=== PATIENT | male | born 1935 | race Caucasian/White ===

== ENCOUNTER 2016-08-05 19:29 | Inpatient (IN) | payer MEDICARE, OTHER ==
[~2016-08-05] VITALS: Ht 172.7 cm; Wt 96.4 kg
--- OUTSIDE RECORDS SUMMARY | 2016-08-05 19:34 | XMS REPORT | Continuity of Care Document ---
Author Author [facility] Organization [facility] Address Unknown Phone Unavailable Allergies Active Description Code Type Severity Reaction Onset Reported/Identified Relationship to Patient Clinical Status Yes No Known Allergies NKMA N/A N/A 09/21/2013 Medications Problems Procedures Results Encounters ACCT No. Visit Date/Time Discharge Status Pt. Type Provider Facility Loc./Unit Complaint [id number] 06/25/2013 14:34:00 06/25/2013 23 :59:59 CLS Outpatient
--- OUTSIDE RECORDS SUMMARY | 2016-08-05 19:34 | XMS REPORT | Referral Summary ---
Author Organization Unknown Address Unknown Phone Unavailable Care Team Providers Care Matchbook Maker Name Role Phone Sofi Long Primary Care Physician [phone] Encounter VC Date(s): 06/11/14 - 06/11/14 [facility], [address] [place] [id number] Discharge Diagnosis: Benign essential hypertension Discharge Diagnosis: Hyperlipidemia, mixed Discharge Diagnosis: Diabetes mellitus type II. Discharge Diagnosis: Coronary arteriosclerosis Discharge Disposition: Home or Self Care Attending Physician: Anshul Long MD Admitting Physician: Anshul Long MD Vital Signs Most recent to 1 oldest [Reference Range]: Temperature Tympanic 36.2 degC [36.6-38.1 degC] *LOW* (06/11/14 1:37 PM) Peripheral Pulse 88 bpm Rate [60-100 bpm] (06/11/14 1:37 PM) Respiratory Rate 18 br/min [14-20 br/min] (06/11/14 1:37 PM) Blood Pressure 130/66 mmHg [90-140/60-90 mmHg] (06/11/14 1:37 PM) Problem List Condition Effective Dates Status Health Status Informant Benign essential Active hypertension (disorder)(Confirmed ) Coronary Active arteriosclerosis (disorder)(Confirmed ) Coronary Active atherosclerosis(Conf irmed) Diabetes(Confirmed) Active Hearing loss Active (disorder)(Confirmed ) Hearing Active loss(Confirmed) Hyperlipidemia, Active mixed(Confirmed) Hypertension (Benign Active Essential)(Confirmed ) Mixed hyperlipidemia Active (disorder)(Confirmed ) Allergies, Adverse Reactions, Alerts No Known Allergies Medications alcohol swab Use four times daily prior to checking BS, 0 Refill(s) Special Instructions: Use four times daily prior to checking BS Start Date: 09/21/13 Status: Ordered Aspirin Enteric Coated 81 mg oral delayed release tablet 1 tabs, Oral, Daily, # 90 tabs, 3 Refill(s) Start Date: 11/05/13 Status: Ordered atenolol 25 mg oral tablet 1 tabs, Oral, Daily, # 90 tabs, 3 Refill(s) Start Date: 11/05/13 Status: Ordered Glucometer (DME) DME Item PRECISION XTRA: Test daily fasting and 2 hrs after meals., See Instructions, # 1 Each, 0 Refill(s), Supply Special Instructions: PRECISION XTRA: Test daily fasting and 2 hrs after meals. Start Date: 09/21/13 Status: Ordered Glucometer Lancets (DME) DME Item Test fasting and 2 hrs after eating, See Instructions, # 1 Each, 0 Refill(s), Supply Special Instructions: Test fasting and 2 hrs after eating Start Date: 09/21/13 Status: Ordered Insulin Syringe (DME) DME Item 29 gauge 0.5 ml syringe U100 use with novolog and lantus 4 times daily. DX 250.00, See Instructions, # 400 syringes, 3 Refill(s), Supply Special Instructions: 29 gauge 0.5 ml syringe U100 use with novolog and lantus 4 times daily. DX 250.00 Start Date: 11/05/13 Status: Ordered Lantus 100 units/mL subcutaneous solution 30 units, SubCutaneous, Bedtime (once a day), dx 250.00, # 30 mL, 3 Refill(s) Special Instructions: dx 250.00 Start Date: 11/05/13 Status: Ordered Lipitor 40 mg oral tablet 1 tabs, Oral, Bedtime (once a day), # 90 tabs, 3 Refill(s) Start Date: 11/05/13 Status: Ordered lisinopril 40 mg oral tablet 1 tabs, Oral, Daily, # 90 tabs, 3 Refill(s) Start Date: 11/05/13 Status: Ordered Nitrostat 0.4 mg sublingual tablet 1 tabs, SubLingual, q5min, as needed for chest pain, # 25 tabs, 3 Refill(s) Start Date: 11/05/13 Status: Ordered NovoLOG 100 units/mL subcutaneous solution 10 units, SubCutaneous, TIDAC, dx 250.00, # 40 mL, 3 Refill(s) Special Instructions: dx 250.00 Start Date: 11/05/13 Status: Ordered Rubbing Alcohol Wipes 70% topical pad See Instructions, use with insulin and testing glucose dx 250.00, # 4 boxes, 3 Refill(s) Special Instructions: use with insulin and testing glucose dx 250.00 Start Date: 11/10/13 Status: Ordered Vitamin D3 Daily, 0 Refill(s) Start Date: 02/05/14 Status: Ordered Results No data available for this section Immunizations No data available for this section Procedures Procedure Date Related Diagnosis Body Site Diabetic foot examination 03/18/13 Hearing aid 05/2011 Social History Social History Type Response Smoking Status Never smoker Assessment and Plan Extracted from: Title: Ambulatory Patient Education Author: Anshul Long MD Date: Family Medicine Cholesterol Cholesterol is a white, waxy, fat-like protein needed by your body in small amounts. The liver makes all the cholesterol you need. It is carried from the liver by the blood through the blood vessels. Deposits (plaque ) may build up on blood vessel mckenzie. This makes the arteries narrower and stiffer. Plaque increases the risk for heart attack and stroke. You cannot feel your cholesterol level even if it is very high. The only way to know is by a blood test to check your lipid (fats) levels. Once you know your cholesterol levels, you should keep a record of the test results. Work with your caregiver to to keep your levels in the desired range. WHAT THE RESULTS MEAN: Total cholesterol is a rough measure of all the cholesterol in your blood. LDL is the so-called bad cholesterol. This is the type that deposits cholesterol in the mckenzie of the arteries. You want this level to be low. HDL is the good cholesterol because it cleans the arteries and carries the LDL away. You want this level to be high. Triglycerides are fat that the body can either burn for energy or store. High levels are closely linked to heart disease. DESIRED LEVELS: Total cholesterol below 200. LDL below 100 for people at risk, below 70 for very high risk. HDL above 50 is good, above 60 is best. Triglycerides below 150. HOW TO LOWER YOUR CHOLESTEROL: Diet. Choose fish or white meat chicken and turkey, roasted or baked. Limit fatty cuts of red meat, fried foods, and processed meats, such as sausage and lunch meat. Eat lots of fresh fruits and vegetables. Choose whole grains, beans, pasta , potatoes and cereals. Use only small amounts of olive, corn or canola oils. Avoid butter, mayonnaise, shortening or palm kernel oils. Avoid foods with trans-fats. Use skim/nonfat milk and low-fat/nonfat yogurt and cheeses. Avoid whole milk, cream, ice cream, egg yolks and cheeses. Healthy desserts include greta food cake, rubi snaps, animal crackers, hard candy, popsicles, and low-fat/ nonfat frozen yogurt. Avoid pastries, cakes, pies and cookies. Exercise. A regular program helps decrease LDL and raises HDL. Helps with weight control. Do things that increase your activity level like gardening, walking, or taking the stairs. Medication. May be prescribed by your caregiver to help lowering cholesterol and the risk for heart disease. You may need medicine even if your levels are normal if you have several risk factors. HOME CARE INSTRUCTIONS Follow your diet and exercise programs as suggested by your caregiver. Take medications as directed. Have blood work done when your caregiver feels it is necessary. MAKE SURE YOU: Understand these instructions. Will watch your condition. Will get help right away if you are not doing well or get worse. Document Released: 12/11/2001 Document Revised: 06/09/2012 Document Reviewed: [facility] Patient Information 2014 [employer]. No follow up information was provided. Extracted from: Title: Office Visit Note Author: Anshul Long MD Date: 06/11/14 Assessment/Plan Benign essential hypertension Blood pressures are controlled. Medications reviewed no changes are recommended. Continue current treatment plan. Recent laboratory studies and report card reviewed and provided. Follow-up in 3 months. Ordered: Office Visit Level 4 Est 92615 Coronary arteriosclerosis Overall appears stable stress test last November as mentioned. Continue current treatment. Three-month follow-up. Ordered: Office Visit Level 4 Est 62218 Diabetes mellitus type II. A1c is down to 7.9. I encouraged him to continue to work on his diet and take his insulin appropriately. Follow-up in 3 months Ordered: Office Visit Level 4 Est 96395 Hyperlipidemia, mixed Recent laboratory studies reviewed overall lipid status is relatively stable. Continue Lipitor at its current dosage. Follow- up in 3 months. Ordered: Office Visit Level 4 Est 69304
--- OUTSIDE RECORDS SUMMARY | 2016-08-05 19:34 | XMS REPORT | Referral Summary ---
Author Author [facility] Organization [facility] Address Unknown Phone Unavailable Care Team Providers Care Salvage Winder Name Role Phone Sofi Long Primary Care Physician [phone] Encounter Date(s): 08/22/15 - 08/22/15 [facility] [place] [address] [place] [id number] Discharge Diagnosis: Benign essential hypertension Discharge Diagnosis: Mixed hyperlipidemia (disorder) Discharge Diagnosis: Generalized OA Discharge Diagnosis: Coronary arteriosclerosis Discharge Diagnosis: Diabetes mellitus type II. Discharge Disposition: 01-Home or Self Care Attending Physician: Anshul Long MD Admitting Physician: Anshul Long MD Vital Signs Most recent to 1 oldest [Reference Range]: Temperature Tympanic 36.6 degC [36.6-38.1 degC] (08/22/15 10:48 AM) Peripheral Pulse 64 bpm Rate [60-100 bpm] (08/22/15 10:48 AM) Respiratory Rate 16 br/min [14-20 br/min] (08/22/15 10:48 AM) Blood Pressure 128/60 mmHg [90-140/60-90 mmHg] (08/22/15 10:48 AM) Problem List Condition Effective Dates Status Health Status Informant Benign essential Active hypertension (disorder)(Confirmed ) Coronary Active arteriosclerosis (disorder)(Confirmed ) Coronary Active atherosclerosis(Conf irmed) Diabetes(Confirmed) Active Hearing loss Active (disorder)(Confirmed ) Hearing Active loss(Confirmed) Hyperlipidemia, Active mixed(Confirmed) Hypertension (Benign Active Essential)(Confirmed ) Mixed hyperlipidemia Active (disorder)(Confirmed ) Obesity(Confirmed) Active patient Allergies, Adverse Reactions, Alerts No Known Allergies Medications alcohol swab Use four times daily prior to checking BS, 0 Refill(s) Start Date: 09/21/13 Status: Ordered Aspirin Enteric Coated 81 mg oral delayed release tablet 81 mg 1 tabs, Oral, Daily, # 90 tabs, 4 Refill(s) Start Date: 09/29/14 Status: Ordered atenolol 25 mg oral tablet 25 mg 1 tabs, Oral, Daily, # 90 tabs, 4 Refill(s) Start Date: 09/29/14 Status: Ordered Centrum Silver Daily, 0 Refill(s) Start Date: 05/10/15 Status: Ordered folic acid Daily, 0 Refill(s) Start Date: 05/10/15 Status: Ordered Glucometer (DME) DME Item PRECISION XTRA TEST STRIPS: Test daily fasting and 2 hrs after meals. Dx 250.01, See Instructions, # 400 Each, 4 Refill(s), Supply Start Date: 09/29/14 Status: Ordered Glucometer Lancets (DME) DME Item Test fasting and 2 hrs after eating dx 250.01, See Instructions, # 100 Each, 3 Refill(s), Supply Start Date: 09/29/14 Status: Ordered Insulin Syringe (DME) DME Item 29 gauge 0.5 ml syringe U100 use with novolog and lantus 4 times daily. DX 250.01, See Instructions, # 400 syringes, 3 Refill(s), Supply Start Date: 09/29/14 Status: Ordered Lantus 100 units/mL subcutaneous solution 30 units, SubCutaneous, Bedtime (once a day), dx 250.00, # 30 mL, 5 Refill(s) Start Date: 09/29/14 Status: Ordered Lipitor 40 mg oral tablet 40 mg 1 tabs, Oral, Bedtime (once a day), # 90 tabs, 4 Refill(s) Start Date: 09/29/14 Status: Ordered lisinopril 40 mg oral tablet 40 mg 1 tabs, Oral, Daily, # 90 tabs, 4 Refill(s) Start Date: 09/29/14 Status: Ordered Nitrostat 0.4 mg sublingual tablet 0.4 mg 1 tabs, SubLingual, q5min, as needed for chest pain, # 25 tabs, 3 Refill( s) Start Date: 09/29/14 Status: Ordered NovoLOG 100 units/mL subcutaneous solution 10 units, SubCutaneous, TIDAC, dx 250.00, # 40 mL, 5 Refill(s) Start Date: 09/29/14 Status: Ordered Rubbing Alcohol Wipes 70% topical pad See Instructions, use with insulin and testing glucose dx 250.00, # 4 boxes, 3 Refill(s) Start Date: 09/29/14 Status: Ordered traZODone 50 mg oral tablet 50 mg 1 tabs, Oral, Bedtime (once a day), as needed for insomnia, # 30 tabs, 0 Refill(s) Start Date: 08/22/15 Status: Ordered Vitamin B1 250 mg oral tablet 250 mg 1 tabs, Oral, Daily, # 100 tabs, 0 Refill(s) Start Date: 05/10/15 Status: Ordered Vitamin B12 500 mcg oral tablet 500 mcg 1 tabs, Oral, Daily, # 90 tabs, 0 Refill(s) Start Date: 05/10/15 Status: Ordered Vitamin B6 Daily, 0 Refill(s) Start Date: 05/10/15 Status: Ordered Vitamin C 500 mg oral tablet 500 mg 1 tabs, Oral, Daily, # 90 tabs, 0 Refill(s) Start Date: 05/10/15 Status: Ordered Vitamin D3 Daily, 0 Refill(s) Start Date: 02/05/14 Status: Ordered vitamin E 200 intl units oral capsule 200 Intl_Units 1 caps, Oral, Daily, # 100 caps, 0 Refill(s) Start Date: 05/10/15 Status: Ordered Results No data available for this section Immunizations No data available for this section Procedures Procedure Date Related Diagnosis Body Site Diabetic foot examination 03/18/13 Hearing aid 05/2011 Social History Social History Type Response Smoking Status Never smoker Assessment and Plan Extracted from: Title: Ambulatory Patient Education Author: Anshul Long MD Date: Family Medicine Blood Glucose Monitoring Monitoring your blood glucose (also know as blood sugar) helps you to manage your diabetes. It also helps you and your health care provider monitor your diabetes and determine how well your treatment plan is working. WHY SHOULD YOU MONITOR YOUR BLOOD GLUCOSE? It can help you understand how food, exercise, and medicine affect your blood glucose. It allows you to know what your blood glucose is at any given moment. You can quickly tell if you are having low blood glucose (hypoglycemia) or high blood glucose (hyperglycemia). It can help you and your health care provider know how to adjust your medicines. It can help you understand how to manage an illness or adjust medicine for exercise. WHEN SHOULD YOU TEST? Your health care provider will help you decide how often you should check your blood glucose. This may depend on the type of diabetes you have, your diabetes control, or the types of medicines you are taking. Be sure to write down all of your blood glucose readings so that this information can be reviewed with your health care provider. See below for examples of testing times that your health care provider may suggest. Type 1 Diabetes Test at least 2 times per day if your diabetes is well controlled, if you are using an insulin pump, or if you perform multiple daily injections. If your diabetes is not well controlled or if you are sick, you may need to test more often. It is a good idea to also test: Before every insulin injection. Before and after exercise. Between meals and 2 hours after a meal. Occasionally between 2:00 a.m. and 3:00 a.m. Type 2 Diabetes If you are taking insulin, test at least 2 times per day. However, it is best to test before every insulin injection. If you take medicines by mouth (orally), test 2 times a day. If you are on a controlled diet, test once a day. If your diabetes is not well controlled or if you are sick, you may need to monitor more often. HOW TO MONITOR YOUR BLOOD GLUCOSE Supplies Needed Blood glucose meter. Test strips for your meter. Each meter has its own strips. You must use the strips that go with your own meter. A pricking needle (lancet). A device that holds the lancet (lancing device). A journal or log book to write down your results. Procedure Wash your hands with soap and water. Alcohol is not preferred. Prick the side of your finger (not the tip) with the lancet. Gently milk the finger until a small drop of blood appears. Follow the instructions that come with your meter for inserting the test strip, applying blood to the strip, and using your blood glucose meter. Other Areas to Get Blood for Testing Some meters allow you to use other areas of your body (other than your finger) to test your blood. These areas are called alternative sites. The most common alternative sites are: The forearm. The thigh. The back area of the lower leg. The palm of the hand. The blood flow in these areas is slower. Therefore, the blood glucose values you get may be delayed, and the numbers are different from what you would get from your fingers. Do not use alternative sites if you think you are having hypoglycemia. Your reading will not be accurate. Always use a finger if you are having hypoglycemia. Also, if you cannot feel your lows (hypoglycemia unawareness), always use your fingers for your blood glucose checks. ADDITIONAL TIPS FOR GLUCOSE MONITORING Do not reuse lancets. Always carry your supplies with you. All blood glucose meters have a 24-hour "hotline" number to call if you have questions or need help. Adjust (calibrate) your blood glucose meter with a control solution after finishing a few boxes of strips. BLOOD GLUCOSE RECORD KEEPING It is a good idea to keep a daily record or log of your blood glucose readings. Most glucose meters, if not all, keep your glucose records stored in the meter. Some meters come with the ability to download your records to your home computer. Keeping a record of your blood glucose readings is especially helpful if you are wanting to look for patterns. Make notes to go along with the blood glucose readings because you might forget what happened at that exact time. Keeping good records helps you and your health care provider to work together to achieve good diabetes management. This information is not intended to replace advice given to you by your health care provider. Make sure you discuss any questions you have with your health care provider. Document Released: 03/20/2004 Document Revised: 01/04/2015 Document Reviewed: [employer] Patient Information 2015 [employer]. No follow up information was provided. Extracted from: Title: Office Visit Note Author: Anshul Long MD Date: 08/22/15 Assessment/Plan 1.Benign essential hypertension Blood pressure appears to be adequately controlled. Medications and treatments reviewed no changes are recommended at this time. Recent laboratory studies reviewed. Report card reviewed and provided. Follow-up in 3 months. Ordered: Office Visit Level 4 Est 38556 2.Coronary arteriosclerosis Chronic and stable with no signs of angina. No change in current treatment is recommended. Ordered: Office Visit Level 4 Est 41667 3.Mixed hyperlipidemia (disorder) Recent laboratory studies reviewed no changes are recommended in current treatment plan. Follow-up in 3 months. Ordered: Office Visit Level 4 Est 55907 4.Diabetes mellitus type II. A1c shows mild improvement. Encouraged him to continue to work hard and apply the knowledge again through his education classes. Report card reviewed and provided. Follow-up in 3 months. Ordered: Office Visit Level 4 Est 13621 5.Generalized OA Chronic stable no change in current treatment recommended. Ordered: Office Visit Level 4 Est 58143
--- OUTSIDE RECORDS SUMMARY | 2016-08-05 19:34 | XMS REPORT | Referral Summary ---
Author Author [facility] Organization [facility] Address Unknown Phone Unavailable Care Team Providers Care Vegetable Washer Name Role Phone Sofi Long Primary Care Physician [phone] Encounter Date(s): 12/08/15 - 12/08/15 [facility] [address] [place] [id number]- Discharge Diagnosis: Benign essential hypertension Discharge Diagnosis: Coronary arteriosclerosis Discharge Diagnosis: Hyperlipidemia, mixed Discharge Diagnosis: Diabetes mellitus type II. Discharge Disposition: 01-Home or Self Care Attending Physician: Anshul Long MD Admitting Physician: Anshul Long MD Vital Signs Most recent to 1 oldest [Reference Range]: Temperature Tympanic 36.9 degC [36.6-38.1 degC] (12/08/15 10:45 AM) Peripheral Pulse 68 bpm Rate [60-100 bpm] (12/08/15 10:45 AM) Blood Pressure 146/68 mmHg [90-140/60-90 mmHg] *HI* (12/08/15 10:45 AM) Problem List Condition Effective Dates Status [...] # 90 tabs, 4 Refill(s) Start Date: 11/15/15 Status: Ordered atenolol 25 mg oral tablet 25 mg 1 tabs, Oral, Daily, # 90 tabs, 4 Refill(s) Start Date: 11/15/15 Status: Ordered Centrum Silver Daily, 0 Refill(s) Start Date: 05/10/15 Status: Ordered folic acid 0.4 mg, Oral, Daily, 0 Refill(s) Start Date: 05/10/15 Status: Ordered Glucometer (DME) DME Item PRECISION XTRA TEST STRIPS: Test daily fasting and 2 hrs after meals. Dx E11.65, See Instructions, # 400 Each, 4 Refill(s), Supply Start Date: 11/15/15 Status: Ordered Glucometer (DME) DME Item Meter Precision Xtra Dx E11.65, See Instructions, # 1 Each, 0 Refill(s ), Supply Start Date: 11/15/15 Status: Ordered Glucometer Lancets (DME) DME Item Test fasting and 2 hrs after eating dx E11.65, See Instructions, # 100 Each, 3 Refill(s), Supply Start Date: 11/15/15 Status: Ordered Insulin Syringe (DME) DME Item 29 gauge 0.5 ml syringe U100 use with novolog and lantus 4 times daily. DX E11.65, See Instructions, # 400 syringes, 3 Refill(s), Supply Start Date: 11/15/15 Status: Ordered Lantus 100 units/mL subcutaneous solution 30 units, SubCutaneous, Bedtime (once a day), dx E11.65, # 30 mL, 5 Refill(s) Start Date: 11/15/15 Status: Ordered Lipitor 40 mg oral tablet 40 mg 1 tabs, Oral, Bedtime (once a day), # 90 tabs, 4 Refill(s) Start Date: 11/15/15 Status: Ordered lisinopril 40 mg oral tablet 40 mg 1 tabs, Oral, Daily, # 90 tabs, 4 Refill(s) Start Date: 11/15/15 Status: Ordered Nitrostat 0.4 mg sublingual tablet 0.4 mg 1 tabs, SubLingual, q5min, as needed for chest pain, # 25 tabs, 3 Refill( s) Start Date: 11/15/15 Status: Ordered NovoLOG 100 units/mL subcutaneous solution 10 units, SubCutaneous, TIDAC, dx E11.65, # 40 mL, 5 Refill(s) Start Date: 11/15/15 Status: Ordered Rubbing Alcohol Wipes 70% topical pad See Instructions, use with insulin and testing glucose dx 250.00, # 4 boxes, 3 Refill(s) Start Date: 11/15/15 Status: Ordered traZODone 50 mg oral tablet [...] Procedures Procedure Date Related Diagnosis Body Site Hearing aid 05/2011 Diabetic foot examination Social History Social History Type Response Smoking Status Never smoker Assessment and Plan Extracted from: Title: Ambulatory Patient Education Author: nAshul Long MD Date: Home Health Care Diabetes and Exercise Exercising regularly is important. It is not just about losing weight. It has many health benefits, such as: Improving your overall fitness, flexibility, and endurance. Increasing your bone density. Helping with weight control. Decreasing your body fat. Increasing your muscle strength. Reducing stress and tension. Improving your overall health. People with diabetes who exercise gain additional benefits because exercise: Reduces appetite. Improves the body's use of blood sugar (glucose). Helps lower or control blood glucose. Decreases blood pressure. Helps control blood lipids (such as cholesterol and triglycerides). Improves the body's use of the hormone insulin by: Increasing the body's insulin sensitivity. Reducing the body's insulin needs. Decreases the risk for heart disease because exercising: Lowers cholesterol and triglycerides levels. Increases the levels of good cholesterol (such as high-density lipoproteins [HDL]) in the body. Lowers blood glucose levels. YOUR ACTIVITY PLAN Choose an activity that you enjoy, and set realistic goals. To exercise safely, you should begin practicing any new physical activity slowly, and gradually increase the intensity of the exercise over time. Your health care provider or health educator can help create an activity plan that works for you. General recommendations include: Encouraging children to engage in at least 60 minutes of physical activity each day. Stretching and performing strength training exercises, such as yoga or weight lifting, at least 2 times per week. Performing a total of at least 150 minutes of moderate-intensity exercise each week, such as brisk walking or water aerobics. Exercising at least 3 days per week, making sure you allow no more than 2 consecutive days to pass without exercising. Avoiding long periods of inactivity (90 minutes or more). When you have to spend an extended period of time sitting down, take frequent breaks to walk or stretch. RECOMMENDATIONS FOR EXERCISING WITH TYPE 1 OR TYPE 2 DIABETES Check your blood glucose before exercising. If blood glucose levels are greater than 240 mg/dL, check for urine ketones. Do not exercise if ketones are present. Avoid injecting insulin into areas of the body that are going to be exercised. For example, avoid injecting insulin into: The arms when playing tennis. The legs when jogging. Keep a record of: Food intake before and after you exercise. Expected peak times of insulin action. Blood glucose levels before and after you exercise. The type and amount of exercise you have done. Review your records with your health care provider. Your health care provider will help you to develop guidelines for adjusting food intake and insulin amounts before and after exercising. If you take insulin or oral hypoglycemic agents, watch for signs and symptoms of hypoglycemia. They include: Dizziness. Shaking. Sweating. Chills. Confusion. Drink plenty of water while you exercise to prevent dehydration or heat stroke. Body water is lost during exercise and must be replaced. Talk to your health care provider before starting an exercise program to make sure it is safe for you. Remember, almost any type of activity is better than none. This information is not intended to replace advice given to you by your health care provider. Make sure you discuss any questions you have with your health care provider. Document Released: 06/07/2004 Document Revised: 04/08/2015 Document Reviewed: ExitCare Patient Information 2016 [email or web address] [facility]. No follow up information was provided. Extracted from: Title: Office Visit Note Author: Anshul Long MD Date: 12/08/15 Assessment/Plan 1.Benign essential hypertension Blood pressures well-controlled no change in current treatment is recommended. Recent laboratory studies reviewed. Follow-up in 6 months. Ordered: Office Visit Level 4 Est 66943 2.Hyperlipidemia, mixed Chronic relatively stable recently laboratory studies reviewed no change in current treatment recommended. Report card reviewed. Follow-upin 6 months. Ordered: Office Visit Level 4 Est 36061 3.Diabetes mellitus type II. Chronic stable no change in current treatment recommended. A1c is 7.6. Continue current dose of insulinfollow- up in 6 months Ordered: Office Visit Level 4 Est 05017 4.Coronary arteriosclerosis Chronic stable no change in current treatment recommendedno signs of anginaor ischemia. Ordered: Office Visit Level 4 Est 22282
--- OUTSIDE RECORDS SUMMARY | 2016-08-05 19:34 | XMS REPORT | Referral Summary ---
Author Author [facility] Organization [facility] Address Unknown Phone Unavailable Care Team Providers Care Brush Operator Name Role Phone Sofi Long Primary Care Physician [phone] Encounter Date(s): 09/29/14 - 09/29/14 [facility] [address] [place] [id number] Discharge Diagnosis: Benign essential hypertension Discharge Diagnosis: Hyperlipidemia, mixed Discharge Diagnosis: Coronary arteriosclerosis Discharge Diagnosis: Stable angina Discharge Diagnosis: Generalized OA Discharge Disposition: 01-Home or Self Care Attending Physician: Anshul Long MD Admitting Physician: Anshul Long MD Vital Signs Most recent to 1 oldest [Reference Range]: Temperature Tympanic 36.4 degC [36.6-38.1 degC] *LOW* (09/29/14 1:28 PM) Peripheral Pulse 68 bpm Rate [60-100 bpm] (09/29/14 1:28 PM) Blood Pressure 122/66 mmHg [90-140/60-90 mmHg] (09/29/14 1:28 PM) Problem List Condition Effective Dates Status [...] 4 Refill(s) Start Date: 09/29/14 Status: Ordered Glucometer (DME) DME Item PRECISION [...] 3 Refill(s) Start Date: 09/29/14 Status: Ordered Vitamin D3 Daily, 0 Refill(s) [...] Author: Anshul Long MD Date: Family Medicine Managing Your High Blood Pressure Blood pressure is a measurement of how forceful your blood is pressing against the mckenzie of the arteries. Arteries are muscular tubes within the circulatory system. Blood pressure does not stay the same. Blood pressure rises when you are active, excited, or nervous; and it lowers during sleep and relaxation. If the numbers measuring your blood pressure stay above normal most of the time, you are at risk for health problems. High blood pressure (hypertension ) is a long-term (chronic ) condition in which blood pressure is elevated. A blood pressure reading is recorded as two numbers, such as 120 over 80 (or 120 /80). The first, higher number is called the systolic pressure. It is a measure of the pressure in your arteries as the heart beats. The second, lower number is called the diastolic pressure. It is a measure of the pressure in your arteries as the heart relaxes between beats. Keeping your blood pressure in a normal range is important to your overall health and prevention of health problems, such as heart disease and stroke. When your blood pressure is uncontrolled, your heart has to work harder than normal. High blood pressure is a very common condition in adults because blood pressure tends to rise with age. Men and women are equally likely to have hypertension but at different times in life. Before age 45, men are more likely to have hypertension. After 65 years of age, women are more likely to have it. Hypertension is especially common in Americans. This condition often has no signs or symptoms. The cause of the condition is usually not known. Your caregiver can help you come up with a plan to keep your blood pressure in a normal, healthy range. BLOOD PRESSURE STAGES Blood pressure is classified into four stages: normal, prehypertension, stage 1 , and stage 2. Your blood pressure reading will be used to determine what type of treatment, if any, is necessary. Appropriate treatment options are tied to these four stages: Normal Systolic pressure (mm Hg): below 120. Diastolic pressure (mm Hg): below 80. Prehypertension Systolic pressure (mm Hg): 120 to 139. Diastolic pressure (mm Hg): 80 to 89. Stage1 Systolic pressure (mm Hg): 140 to 159. Diastolic pressure (mm Hg): 90 to 99. Stage2 Systolic pressure (mm Hg): 160 or above. Diastolic pressure (mm Hg): 100 or above. RISKS RELATED TO HIGH BLOOD PRESSURE Managing your blood pressure is an important responsibility. Uncontrolled high blood pressure can lead to: A heart attack. A stroke. A weakened blood vessel (aneurysm ). Heart failure. Kidney damage. Eye damage. Metabolic syndrome. Memory and concentration problems. HOW TO MANAGE YOUR BLOOD PRESSURE Blood pressure can be managed effectively with lifestyle changes and medicines ( if needed). Your caregiver will help you come up with a plan to bring your blood pressure within a normal range. Your plan should include the following: Education Read all information provided by your caregivers about how to control blood pressure. Educate yourself on the latest guidelines and treatment recommendations. New research is always being done to further define the risks and treatments for high blood pressure. Lifestylechanges Control your weight. Avoid smoking. Stay physically active. Reduce the amount of salt in your diet. Reduce stress. Control any chronic conditions, such as high cholesterol or diabetes. Reduce your alcohol intake. Medicines Several medicines (antihypertensive medicines ) are available, if needed, to bring blood pressure within a normal range. Communication Review all the medicines you take with your caregiver because there may be side effects or interactions. Talk with your caregiver about your diet, exercise habits, and other lifestyle factors that may be contributing to high blood pressure. See your caregiver regularly. Your caregiver can help you create and adjust your plan for managing high blood pressure. RECOMMENDATIONS FOR TREATMENT AND FOLLOW-UP The following recommendations are based on current guidelines for managing high blood pressure in non adults. Use these recommendations to identify the proper follow-up period or treatment option based on your blood pressure reading. You can discuss these options with your caregiver. Systolic pressure of 120 to 139 or diastolic pressure of 80 to 89: Follow up with your caregiver as directed. Systolic pressure of 140 to 160 or diastolic pressure of 90 to 100: Follow up with your caregiver within 2 months. Systolic pressure above 160 or diastolic pressure above 100: Follow up with your caregiver within 1 month. Systolic pressure above 180 or diastolic pressure above 110: Consider antihypertensive therapy; follow up with your caregiver within 1 week. Systolic pressure above 200 or diastolic pressure above 120: Begin antihypertensive therapy; follow up with your caregiver within 1 week. Document Released: 12/10/2012 Document Reviewed: 12/10/2012 ExitCare Patient Information 2014 [employer]. No follow up information was provided. Extracted from: Title: Office Visit Note Author: Anshul Long MD Date: 09/29/14 Assessment/Plan Benign essential hypertension Blood pressure is adequately controlled. Medications and treatments reviewed no changes are recommended. Follow-up in 3 months. Report card and recent laboratory studies reviewed. Ordered: Office Visit Level 4 Est 59619 Coronary arteriosclerosis Chronic stable no change in current treatment. Ordered: Office Visit Level 4 Est 50066 Generalized OA Chronic stable no change in current treatment. Ordered: Office Visit Level 4 Est 02313 Hyperlipidemia, mixed Laboratory studies ordered for prior to next visit. Continue current treatment plan without change. Ordered: Office Visit Level 4 Est 60327 Stable angina Overall this continues to be stable. She starts to have more frequent or more severe chest pain he'll let us know. Ordered: Office Visit Level 4 Est 22422 Erectile dysfunction Samples of Viagra given. Discussed side effects. If he happens to have chest pain with sexual activity he should stop. Discussed that he should not use nitrates on the day he takes Viagra.
--- OUTSIDE RECORDS SUMMARY | 2016-08-05 19:34 | XMS REPORT | Referral Summary ---
Author Author [facility] Organization [facility] Address Unknown Phone Unavailable Care Team Providers Care Safety Person Name Role Phone Sofi Long Primary Care Physician [phone] Encounter Date(s): 09/29/14 - 09/29/14 [facility] [address] [place] [id number] Discharge Diagnosis: Benign essential hypertension Discharge [...] Document Reviewed: 12/10/2012 ExitCare Patient Information 2014 [employer]. No follow up information was provided. Extracted from: Title: Office Visit Note Author: Anshul Long MD Date: 09/29/14 Assessment/Plan Benign essential hypertension Blood pressure is adequately controlled. Medications and treatments reviewed no changes are recommended. Follow-up in 3 months. Report card and recent laboratory studies reviewed. Ordered: Office Visit Level 4 Est 47554 Coronary arteriosclerosis Chronic stable no change in current treatment. Ordered: Office Visit Level 4 Est 35523 Generalized OA Chronic stable no change in current treatment. Ordered: Office Visit Level 4 Est 61994 Hyperlipidemia, mixed Laboratory studies ordered for prior to next visit. Continue current treatment plan without change. Ordered: Office Visit Level 4 Est 37466 Stable angina Overall this continues to be stable. She starts to have more frequent or more severe chest pain he'll let us know. Ordered: Office Visit Level 4 Est 97057 Erectile dysfunction Samples of Viagra given. Discussed side effects. If he happens to have chest pain with sexual activity he should stop. Discussed that he should not use nitrates on the day he takes Viagra.
--- OUTSIDE RECORDS SUMMARY | 2016-08-05 19:34 | XMS REPORT | Referral Summary ---
Author Author [facility] Organization [facility] Address Unknown Phone Unavailable Care Team Providers Care Scout Professional Sports Name Role Phone Sofi Long Primary Care Physician [phone] Encounter Date(s): 09/29/14 - 09/29/14 [facility] [address] [place] [id number] Discharge Diagnosis: Benign essential hypertension Discharge [...] Document Reviewed: 12/10/2012 ExitCare Patient Information 2014 [employer]. No follow up information was provided. Extracted from: Title: Office Visit Note Author: Anshul Long MD Date: 09/29/14 Assessment/Plan Benign essential hypertension Blood pressure is adequately controlled. Medications and treatments reviewed no changes are recommended. Follow-up in 3 months. Report card and recent laboratory studies reviewed. Ordered: Office Visit Level 4 Est 74091 Coronary arteriosclerosis Chronic stable no change in current treatment. Ordered: Office Visit Level 4 Est 25199 Generalized OA Chronic stable no change in current treatment. Ordered: Office Visit Level 4 Est 91883 Hyperlipidemia, mixed Laboratory studies ordered for prior to next visit. Continue current treatment plan without change. Ordered: Office Visit Level 4 Est 29520 Stable angina Overall this continues to be stable. She starts to have more frequent or more severe chest pain he'll let us know. Ordered: Office Visit Level 4 Est 90649 Erectile dysfunction Samples of Viagra given. Discussed side effects. If he happens to have chest pain with sexual activity he should stop. Discussed that he should not use nitrates on the day he takes Viagra.
--- OUTSIDE RECORDS SUMMARY | 2016-08-05 19:34 | XMS REPORT | Referral Summary ---
Author Author [facility] Organization [facility] Address Unknown Phone Unavailable Care Team Providers Care City Surveyor Name Role Phone Sofi Long Primary Care Physician [phone] Encounter Date(s): 05/10/15 - 05/10/15 [facility] [address] [place] [id number] Discharge Diagnosis: Benign essential hypertension Discharge Diagnosis: Coronary atherosclerosis Discharge Diagnosis: Diabetes mellitus type II. Discharge Diagnosis: Hyperlipidemia, mixed Discharge Disposition: 01-Home or Self Care Attending Physician: Anshul Lnog MD Admitting Physician: Anshul Long MD Vital Signs Most recent to 1 oldest [Reference Range]: Temperature Tympanic 36.1 degC [36.6-38.1 degC] *LOW* (05/10/15 10:46 AM) Peripheral Pulse 72 bpm Rate [60-100 bpm] (05/10/15 10:46 AM) Respiratory Rate 16 br/min [14-20 br/min] (05/10/15 10:46 AM) Blood Pressure 150/70 mmHg [90-140/60-90 mmHg] *HI* (05/10/15 10:46 AM) Problem List Condition Effective Dates Status [...] Refill(s) Start Date: 09/29/14 Status: Ordered Vitamin B1 250 mg oral [...] provider may suggest. Type 1 Diabetes Test 4 times a day if you are in good control, using an insulin pump, or perform multiple daily injections. If your diabetes is not well controlled or if you are sick, you may need to monitor more often. It is a good idea to also monitor: Before and after exercise. Between meals and 2 hours after a meal. Occasionally between 2:00 a.m. and 3:00 a.m. Type 2 Diabetes It can vary with each person, but generally, if you are on insulin, test 4 times a day. If you take medicines by mouth (orally), [...] work together to achieve good diabetes management. Document Released: 03/20/2004 Document Revised: 08/02/2014 Document Reviewed: ExitCare Patient Information 2015 [employer]. This information is not intended to replace advice given to you by your health care provider. Make sure you discuss any questions you have with your health care provider. No follow up information was provided. Extracted from: Title: Office Visit Note Author: Anshul Long MD Date: 05/10/15 Assessment/Plan Benign essential hypertension Blood pressure is mildly elevated today. Seems to be running normal at home. He does notice that it goes up quite a bit if he exercises. He'll continue to monitor and let me know if it's running higher. Continue current treatment plan for now. Ordered: Office Visit Level 4 Est 15320 Coronary atherosclerosis Chronic stable no change in current treatment. If he's having more frequent or more severe episodes of angina or chest pain he' ll let us now. Ordered: Office Visit Level 4 Est 50545 Diabetes mellitus type II. We had a fairly long discussion about his diabetes and insulin usage. I'vediscussed again with him the foot and use basal insulin and encouraged himtotake regular doses of basal insulinand very the dose of his NovoLog depending on what he is eating as well as blood sugars are doing. We will see if we can schedule him for diabetic education classes at [facility] as well. Ordered: Office Visit Level 4 Est 65293 Hyperlipidemia, mixed Chronic stable no change in current treatment recommended. Ordered: Office Visit Level 4 Est 57966
--- OUTSIDE RECORDS SUMMARY | 2016-08-05 19:34 | XMS REPORT | Continuity of Care Document ---
Author Author Anshul Long MD [facility] Ambulatory Address [address] [place] [address] Phone Care Team Providers Care Cigar Brander Name Role Phone Anshul Long PP Unavailable Payers Payer name Insurance type Covered constitution party ID Authorization(s) Unknown Problems Condition Effective Dates (start - stop) Clinical Status CAD, Unspecified - *Chronic Diabetes Mellitus Type 2, Uncomplicated - *Chronic Hypertension, Benign - *Chronic Mixed Hyperlipidemia - *Chronic Unspecified hearing loss - *Chronic CAD, Unspecified - Chronic Diabetes Mellitus Type 2, Uncomplicated - Chronic Hypertension, Benign - Chronic Mixed Hyperlipidemia - Chronic Unspecified hearing loss - Chronic DMII WO CMP NT ST UNCNTR - PURE HYPERCHOLESTEROLEM - HYPERTENSION NOS - COR ATH UNSP VSL NTV/GFT - Mixed Hyperlipidemia - *Chronic Hypertension, Benign - *Chronic CAD, Unspecified - Chronic Diabetes Mellitus Type 2, Uncomplicated - Chronic Mixed Hyperlipidemia - Chronic Hypertension, Benign - Chronic CAD, Unspecified - *Chronic Diabetes Mellitus Type 2, Uncomplicated - *Chronic CAD, Unspecified - *Chronic Diabetes Mellitus Type 2, Uncomplicated - *Chronic Mixed Hyperlipidemia - *Chronic Hypertension, Benign - *Chronic CAD, Unspecified - Chronic Diabetes Mellitus Type 2, Uncomplicated - Chronic Mixed Hyperlipidemia - Chronic Hypertension, Benign - Chronic Diabetes Mellitus Type 2, Uncomplicated - *Chronic CAD, Unspecified - *Chronic Mixed Hyperlipidemia - *Chronic Hypertension, Benign - *Chronic Diabetes Mellitus Type 2, Uncomplicated - Chronic CAD, Unspecified - Chronic Mixed Hyperlipidemia - Chronic Hypertension, Benign - Chronic Diabetes Mellitus Type 2, Uncomplicated - *Chronic CAD, Unspecified - *Chronic Mixed Hyperlipidemia - *Chronic Hypertension, Benign - *Chronic Diabetes Mellitus Type 2, Uncomplicated - Chronic CAD, Unspecified - Chronic Mixed Hyperlipidemia - Chronic Hypertension, Benign - Chronic CAD, Unspecified - Chronic Diabetes Mellitus Type 2, Uncomplicated - Chronic Mixed Hyperlipidemia - Chronic Hypertension, Benign - Chronic Unspecified hearing loss - Chronic CAD, Unspecified - *Chronic Diabetes Mellitus Type 2, Uncomplicated - *Chronic Mixed Hyperlipidemia - *Chronic Hypertension, Benign - *Chronic CAD, Unspecified - Chronic Diabetes Mellitus Type 2, Uncomplicated - Chronic Mixed Hyperlipidemia - Chronic Hypertension, Benign - Chronic Family History Family Member Diagnosis Age At Onset Status Unknown Social History Social History Element Description Quantity Unknown Allergies, Adverse Reactions, Alerts Substance Reaction Severity Status Unknown Medications Medication Instructions Dosage Effective Dates (start - stop) Status Lipitor 40 mg tablet Take 1 tablet by mouth every day at bedtime. 2013 - Active Nitrostat 0.[address] 1 tabletunder the tongue every 5 minutes as needed for chest pain ( not to exceed 3 in 24 hours). 2013 - Active Lantus 100 unit/mL subcutaneous solution INJECT 30 UNITS SUBQ EVERY DAY - Active atenolol 25 mg tablet Take 1 by mouth every day. - Active lisinopril 40 mg tablet take 1 tablet (40MG) by oral route every day 40 MG - Active Novolog 100 unit/mL subcutaneous solution INJECT 10 UNITS SUBQ BEFORE EACH MEAL - Active Alcohol Prep Pads USE FOUR TIMES DAILY - Active lancets TEST FASTING AND 2 HOUR AFTER EATING - Active Enteric Coated Aspirin 81 mg tablet,delayed release Take 1 by mouth every day. - Active insulin syringe-needle U-100 1/2 mL 29 as directed - Active insulin syringe-needle U-100 1/2 mL 29 as directed - Active Precision PCX Plus Test strips TEST FASTING AND 2 HOUR AFTER EATING - Active Precision Xtra Monitor TEST DAILY FASTING OR 2 HOURS AFTER MEALS 2010 - Active Immunizations Vaccine Date Status Comments Unknown Results Test Name Date and Time Measure Units Reference Range Abnormal Flag Comments Unknown Vital Signs Date / Time: Height Weight Pulse Rate Blood Pressure Temperature /14:39:00 69.00 in 237.00 lbs 68 /min 134/68 mm[Hg] 98.5 F Procedures Procedure Date Unknown Encounters Encounter Location Date Patient Visit [facility] Patient Visit Conversion Patient Visit [facility] Patient Visit [facility] Patient Visit [facility] Patient Visit [facility] Patient Visit [facility] Patient Visit [facility] Advance Directives Directive Effective Date Unknown
--- OUTSIDE RECORDS SUMMARY | 2016-08-05 19:34 | XMS REPORT | Referral Summary ---
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 Name Role Phone Sofi Long Primary Care Physician [phone] Encounter Date(s): 01/19/15 - 01/19/15 [facility] [address] [place] [id number] Discharge Diagnosis: Benign essential hypertension Discharge Diagnosis: Hyperlipidemia, mixed Discharge Diagnosis: Diabetes Discharge Diagnosis: Coronary arteriosclerosis Discharge Disposition: 01-Home or Self Care Attending Physician: Anshul Long MD Admitting Physician: Anshul Long MD Vital Signs Most recent to 1 oldest [Reference Range]: Temperature Tympanic 36.2 degC [36.6-38.1 degC] *LOW* (01/19/15 10:30 AM) Peripheral Pulse 84 bpm Rate [60-100 bpm] (01/19/15 10:30 AM) Respiratory Rate 16 br/min [14-20 br/min] (01/19/15 10:30 AM) Blood Pressure 152/64 mmHg [90-140/60-90 mmHg] *HI* (01/19/15 10:30 AM) Problem List Condition Effective Dates Status [...] Patient Education Author: Anshul Long MD Date: 01/19/15 Family Medicine Diabetes Mellitus and Food It is important for you to manage your blood sugar (glucose) level. Your blood glucose level can be greatly affected by what you eat. Eating healthier foods in the appropriate amounts throughout the day at about the same time each day will help you control your blood glucose level. It can also help slow or prevent worsening of your diabetes mellitus. Healthy eating may even help you improve the level of your blood pressure and reach or maintain a healthy weight. HOW CAN FOOD AFFECT ME? Carbohydrates Carbohydrates affect your blood glucose level more than any other type of food. Your dietitian will help you determine how many carbohydrates to eat at each meal and teach you how to count carbohydrates. Counting carbohydrates is important to keep your blood glucose at a healthy level, especially if you are using insulin or taking certain medicines for diabetes mellitus. Alcohol Alcohol can cause sudden decreases in blood glucose (hypoglycemia), especially if you use insulin or take certain medicines for diabetes mellitus. Hypoglycemia can be a life-threatening condition. Symptoms of hypoglycemia ( sleepiness, dizziness, and disorientation) are similar to symptoms of having too much alcohol. If your health care provider has given you approval to drink alcohol, do so in moderation and use the following guidelines: Women should not have more than one drink per day, and men should not have more than two drinks per day. One drink is equal to: 12 oz of beer. 5 oz of wine. 1 oz of hard liquor. Do not drink on an empty stomach. Keep yourself hydrated. Have water, diet soda, or unsweetened iced tea. Regular soda, juice, and other mixers might contain a lot of carbohydrates and should be counted. WHAT FOODS ARE NOT RECOMMENDED? As you make food choices, it is important to remember that all foods are not the same. Some foods have fewer nutrients per serving than other foods, even though they might have the same number of calories or carbohydrates. It is difficult to get your body what it needs when you eat foods with fewer nutrients. Examples of foods that you should avoid that are high in calories and carbohydrates but low in nutrients include: Trans fats (most processed foods list trans fats on the Nutrition Facts label). Regular soda. Juice. Candy. Sweets, such as cake, pie, doughnuts, and cookies. Fried foods. WHAT FOODS CAN I EAT? Have nutrient-rich foods, which will nourish your body and keep you healthy. The food you should eat also will depend on several factors, including: The calories you need. The medicines you take. Your weight. Your blood glucose level. Your blood pressure level. Your cholesterol level. You also should eat a variety of foods, including: Protein, such as meat, poultry, fish, tofu, nuts, and seeds (lean animal proteins are best). Fruits. Vegetables. Dairy products, such as milk, cheese, and yogurt (low fat is best). Breads, grains, pasta, cereal, rice, and beans. Fats such as olive oil, trans fat-free margarine, canola oil, avocado, and olives. DOES EVERYONE WITH DIABETES MELLITUS HAVE THE SAME MEAL PLAN? Because every person with diabetes mellitus is different, there is not one meal plan that works for everyone. It is very important that you meet with a dietitian who will help you create a meal plan that is just right for you. Document Released: 12/13/2005 Document Revised: 03/23/2014 Document Reviewed: [facility] Patient Information 2015 [facility]. This information is not intended to replace advice given to you by your health care provider. Make sure you discuss any questions you have with your health care provider. No follow up information was provided. Extracted from: Title: Office Visit Note Author: Anshul Long MD Date: 01/19/15 Assessment/Plan Benign essential hypertension Blood pressure is up slightly here today but his been running normal at home. He had direction because he was late for his appointment. We'll continue current treatment plan without change. Recent laboratory studies reviewed and report card reviewed and provided. Follow-up in 3 months. Ordered: Office Visit Level 4 Est 04005 Coronary arteriosclerosis Chronic stable no signs of ischemia. Continue current treatment plan without change. Ordered: Office Visit Level 4 Est 82536 Diabetes I reviewed with him the rationale of trying to take his insulin prior to meals anticipating what his meal will be. He'll try to work on that more. For some reason we did not get an A1c with this recent laboratory studies will wait and do one in 3 months. Follow-up then. Ordered: Office Visit Level 4 Est 20005 Hyperlipidemia, mixed Recent laboratory studies reviewed no change in current treatment is recommended. Ordered: Office Visit Level 4 Est 27217
--- OUTSIDE RECORDS SUMMARY | 2016-08-05 19:35 | XMS REPORT | Referral Summary ---
Author Author [facility] Organization [facility] Address Unknown Phone Unavailable Care Team Providers Care Food Broker Name Role Phone Sofi Long Primary Care Physician [phone] Encounter Date(s): 09/29/14 - 09/29/14 [facility] [address] [place] [phone] Discharge Diagnosis: Benign essential hypertension Discharge [...] Document Reviewed: 12/10/2012 [employer] Patient Information 2014 [place]. No follow up information was provided. Extracted from: Title: Office Visit Note Author: Anshul Long MD Date: 09/29/14 Assessment/Plan Benign essential hypertension Blood pressure is adequately controlled. Medications and treatments reviewed no changes are recommended. Follow-up in 3 months. Report card and recent laboratory studies reviewed. Ordered: Office Visit Level 4 Est 34115 Coronary arteriosclerosis Chronic stable no change in current treatment. Ordered: Office Visit Level 4 Est 98610 Generalized OA Chronic stable no change in current treatment. Ordered: Office Visit Level 4 Est 66161 Hyperlipidemia, mixed Laboratory studies ordered for prior to next visit. Continue current treatment plan without change. Ordered: Office Visit Level 4 Est 26655 Stable angina Overall this continues to be stable. She starts to have more frequent or more severe chest pain he'll let us know. Ordered: Office Visit Level 4 Est 23986 Erectile dysfunction Samples of Viagra given. Discussed side effects. If he happens to have chest pain with sexual activity he should stop. Discussed that he should not use nitrates on the day he takes Viagra.
--- OUTSIDE RECORDS SUMMARY | 2016-08-05 19:35 | XMS REPORT | Referral Summary ---
Author Author [facility] Organization [facility] Address Unknown Phone Unavailable Care Team Providers Care Home Health Aid Name Role Phone Sofi Long Primary Care Physician [phone] Encounter Date(s): 01/19/15 - 01/19/15 [facility] [address] [place] [phone] Discharge Diagnosis: Benign essential hypertension Discharge [...] Released: 12/13/2005 Document Revised: 03/23/2014 Document Reviewed: [employer] Patient Information 2015 [place]. This information is not intended to replace [...] months. Ordered: Office Visit Level 4 Est 45567 Coronary arteriosclerosis Chronic stable no signs of ischemia. Continue current treatment plan without change. Ordered: Office Visit Level 4 Est 52665 Diabetes I reviewed with him the rationale of trying to take his insulin prior to meals anticipating what his meal will be. He'll try to work on that more. For some reason we did not get an A1c with this recent laboratory studies will wait and do one in 3 months. Follow-up then. Ordered: Office Visit Level 4 Est 30975 Hyperlipidemia, mixed Recent laboratory studies reviewed no change in current treatment is recommended. Ordered: Office Visit Level 4 Est 88212
--- NOTE | 2016-08-05 20:02 | NUR ---
DR DR YOUNG AT BEDSIDE.
[2016-08-05] MEDS ORDERED: NITR0.4T PO (20:06)
[2016-08-05] MEDS ORDERED: LISI40TA4 PO (20:06)
[2016-08-05] MEDS ORDERED: ASPI81TA43 PO (20:06)
[2016-08-05] MEDS ORDERED: ATEN25TA PO (20:06)
[2016-08-05] MEDS ORDERED: ATOR40TA64 PO (20:06)
[2016-08-05] MEDS ORDERED: INSU100V13 SQ (20:06)
[2016-08-05] MEDS ORDERED: TRAZ-170 PO (20:06)
[2016-08-05] MEDS ORDERED: INSU100V8 SQ (20:06)
[2016-08-05] MEDS ORDERED: CYAN50008 PO (20:10)
[2016-08-05] MEDS ORDERED: ASCO500T9 PO (20:10)
[2016-08-05] MEDS ORDERED: VITA200C5 PO (20:10)
[2016-08-05] MEDS ORDERED: THIA250T6 PO (20:10)
[2016-08-05] MEDS ORDERED: PYRI50TA PO (20:10)
[2016-08-05] MEDS ORDERED: MULT-1274 PO (20:12)
[2016-08-05] MEDS ORDERED: ERGO400C PO (20:12)
[2016-08-05] MEDS ORDERED: FOLI0.4T2 PO (20:12)
--- NOTE | 2016-08-05 20:28 | NUR ---
RADIOLOGY PT TO RADIOLOGY [facility].
--- OUTSIDE RECORDS SUMMARY | 2016-08-05 20:34 | XMS REPORT | Continuity of Care Document ---
Author Author [facility] Organization [facility] Address Unknown Phone Unavailable Allergies Active Description Code Type Severity Reaction Onset Reported/Identified Relationship to Patient Clinical Status Yes No Known Allergies NKMA N/A N/A 09/21/2013 Medications Problems Procedures Results Encounters ACCT No. Visit Date/Time Discharge Status Pt. Type Provider Facility Loc./Unit Complaint [id number] 06/25/2013 14:34:00 06/25/2013 23 :59:59 [facility] Outpatient
--- NOTE | 2016-08-05 21:05 | NUR ---
RADIOLOGY PT RETURNED.
[2016-08-05 21:28] LABS: BASOPHILS % (AUTO) 0.2 % (0-2); EOSINOPHILS # (AUTO) 0.1 T/MM3 (0-0.5); EOSINOPHILS % (AUTO) 1.1 % (0-4); HCT - HEMATOCRIT 37.4 % (41-53); HGB - HEMOGLOBIN 12.6 GM/DL (13.5-17.5); IMMATURE GRANULOCYTE # (AUTO) 0.02 T/MM3 (0.00-0.03); IMMATURE GRANULOCYTE % (AUTO) 0.2 % (0.0-0.5); LYMPHOCYTES # (AUTO) 1.3 T/MM3 (1-4.8); LYMPHOCYTES % (AUTO) 11.7 % (23-45); MEAN CORPUSCULAR HGB 29.9 UUG (26-34); MEAN CORPUSCULAR HGB CONC(MCHC 33.7 GM/DL (31-37); MEAN CORPUSCULAR VOLUME 88.6 UM3 (80-100); MEAN PLATELET VOLUME 9.8 UM3 (9.4-12.4); NEUTROPHILS #(AUTO)-ABSOLUTE 8.3 T/MM3 (1.8-7.7); NEUTROPHILS % (AUTO) 77.8 % (33-66); RED BLOOD COUNT 4.22 M/MM3 (4.50-5.90); WBC - WHITE BLOOD COUNT 10.6 T/MM3 (4.5-11.0)
[2016-08-05 21:36] LABS: ALBUMIN 4.4 G/DL (3.5-5.0); ALBUMIN/GLOBULIN RATIO 1.6 RATIO (1.1-2.2); ALKALINE PHOSPHATASE 91 U/L (38-126); ALT (SGPT) 32 U/L (21-72); ANION GAP 14 MEQ/L (5-15); AST (SGOT) 20 U/L (17-59); BUN/CREATININE RATIO 19 RATIO (6-26); CHLORIDE 99 MEQ/L (98-107); CO2 - CARBON DIOXIDE 26 MEQ/L (22-30); CREATININE 1.6 MG/DL (0.8-1.5); GLOMERULAR FILTRATION RATE 42; GLUCOSE 107 MG/DL (75-110); LIPASE 36 U/L (23-300); POTASSIUM 4.5 MEQ/L (3.6-5); SODIUM 139 MEQ/L (134-144); TOTAL PROTEIN 7.2 G/DL (6.3-8.2)
[2016-08-05 21:39] LABS: BLOOD, URINE NEGATIVE (NEGATIVE); COLOR,URINE YELLOW (YELLOW); LEUKOCYTE ESTERASE ,URINE NEGATIVE (NEGATIVE); NITRITE,URINE NEGATIVE (NEGATIVE); UROBILINOGEN,URINE 0.2 EU/DL (NORMAL)
[2016-08-05 22:10] LABS: CALCIUM 13.1 MG/DL (8.4-10.2)
--- NOTE | 2016-08-05 22:28 | NUR ---
DR DR YOUNG AT BEDSIDE.
[2016-08-05] MEDS ORDERED: NORMAL SALINE 500 ML IV ONE (22:45)
--- OUTSIDE RECORDS SUMMARY | 2016-08-05 22:54 | XMS REPORT | Continuity of Care Document ---
Author Author [facility] Organization [facility] Address Unknown Phone Unavailable Allergies Active Description Code Type Severity Reaction Onset Reported/Identified Relationship to Patient Clinical Status Yes No Known Allergies NKMA N/A N/A 09/21/2013 Medications Problems Procedures Results Encounters ACCT No. Visit Date/Time Discharge Status Pt. Type Provider Facility Loc./Unit Complaint [id number] 06/25/2013 14:34:00 06/25/2013 23 :59:59 C[facility] Outpatient
[2016-08-05] MEDS ORDERED: NORMAL SALINE 1,000 ML IV SCH ×2 (22:55→23:00)
--- NOTE | 2016-08-05 22:58 | ERPDOC ---
Departure Disposition Decision Date: August 05, 2016 Disposition Decision Time: 22:30 Disposition: 02 TO [facility] Impression Impression Impression: Primary Impression: Metastatic cancer Additional Impression: Hypercalcemia Severity: Moderate Condition: Improved Seen By: Physician only Referrals: MISHA REYEZ MD (Family) Problems/Meds/Labs Reviewed?: Yes Medications reviewed and manag: Yes Follow up care ordered?: Yes Mental Status: Alert, Occasionally Confused, Oriented Critical Care Note Total Time (mins): 37 Critical Care Spent: [id number] care of pt, Reviewing test results, Discuss the case w/staff, Documenting the MR, Discussion w/ family/DPOA During this visit the pt was: At Risk of Deterioration HPI - General Medical General Chief Complaint: Abdominal Pain Stated Complaint: METASTATIC CA Time Seen by Provider: 19:58 Source: patient, family Exam Limitations: no limitations HPI - General Medical Initial Comments 80-year-old male presents the emergency department with a chief complaint of frequent falls recently. Patient notes that he has been feeling like he has been struggling since May 2016. Patient states that he is experiencing some mild discomfort that is dull without radiation in his right shoulder. At times the patient's states that he has seems slightly more confused to her. Patient denies any other complaints or associated symptoms. He was at home when his symptoms began. Symptoms have been persisted in nature since onset. Patient does state that he feels like that he falls more easily than he has in the past. Patient does note slight increase in discomfort with movement of the right upper body. Occurred At: home Onset: Constant Allergies: Coded Allergies: No Known Allergies (Unverified , 08/06/16) Past History Past Medical History Metabolic: diabetes, hypercholesterolemia, hypertension Cardiac: CAD Surgical History Cardiac: cardiac bypass Family History Family PMH: FOUND: diabetes Social History Smoking Status: Never smoker Substance Use Type: does not use Alcohol Intake: none Review of Systems Constitutional Constitutional: DENIES: chills, fever Eyes General: DENIES: erythema, exudate Lids/Accessories: DENIES: erythema, swelling Vision: DENIES: acuity, blurring ENMT Ears: DENIES: drainage, erythema Hearing: DENIES: hearing loss Balance: DENIES: ataxia, falling to one side Sinuses: DENIES: congestion, pain Nose: DENIES: nosebleeds, pain Mouth/Throat: DENIES: painful swallowing, sore throat Teeth: DENIES: pain Jaw: DENIES: pain Cardiovascular Cardiac: DENIES: chest pain, dyspnea on exertion Rhythm/Rate: DENIES: irregular beat, palpitations Vascular: DENIES: pedal edema, unilateral swelling Pulmonary Respiratory: DENIES: cough, dyspnea, pleuritic chest pain, sputum GI Upper Abdomen: DENIES: nausea, pain, vomiting Lower Abdomen: DENIES: diarrhea, pain General: DENIES: dysuria, frequency Musculoskeletal General: DENIES: joint pain, tenderness Integumentary Skin: DENIES: itching, rash Neurological General: DENIES: change in strength, headache, numbness, weakness Psychiatric Psychiatric: DENIES: emotional instability, suicidal ideation/attempt Endocrine Endocrine: DENIES: polydipsia, polyphagia Hematologic/Lymphatic Hematologic/Lymphatic: DENIES: frequent nosebleeds, lymphadenopathy Allergic/Immunological Allergic/Immunoligical: DENIES: allergic reactions, hives Physical Exam General General Nourishment: well nourished, well developed, appears stated age, no acute distress, adult General Body Habitus: well groomed Vitals and Pain First Documented Vital Signs Date Time Temp Pulse Resp B/P Pulse Ox O2 Delivery O2 Flow Rate FiO2 08/05/16 19:29 98.0 62 20 117/63 94 Room Air Weight: Kilograms: 88.640 Height (feet): 5 Height (inches): 10.00 Triage Pain Scale: RN VS reviewed by Provider: Yes Normal Exams: Head: Normocephalic w/o trauma Eyes: Pupils are PERRLA w/ EOMI, No scleral icterus, irritation, or foreign bodies noted ENMT: No facial trauma, nasal exudates, pharyngeal erythema, or exudates are noted Dental: No fractured, loose, or missing teeth noted Neck: Full range of motion, without adenopathy, JVD, bruits or thyromegaly Chest/Resp: Clear all navarro, with good airflow, and symmetry bilaterally CV: Regular rate and rhythm, without murmur or gallop, Pulses 2+ all extremities, capillary refill, <2 seconds all ext., no pedal edema noted Abdomen: Bowel sounds positive, soft, non-tender, non-distended, no hepatosplenomegaly, masses or bruits noted Lymphatic: No lymphadenopathy, or lymphedema noted Musculoskeletal: No tenderness, or deformity noted, good range of motion, all extremities Integumentary: No rashes, hives, or bruising noted, hair and nails, without abnormality Neurologic: Patient is alert, and oriented, cranial nerves, motor/sensory/ cerebellar, exams w/o gross deficits, to observation Psychiatric: Patient exhibits, appropriate attention, emotion and affect Musculoskeletal (brief) Comments Mild tenderness to palpation over distal R clavicle without tenting of skin. skin is intact. Pulses intact. Sensation intact. Capillary refill less than 2. Full range of motion. No erythema. No edema. No other tenderness in the right upper extremity. Differential Diagnoses Considering: CVA, Medication Effect, Metabolic, TIA, UTI Progress Results/Orders Orders Procedure Category Date Status Time Cbc W/Auto LAB 08/05/16 Complete Diff-Reflex Manual Cmp - Comprehensive LAB 08/05/16 Complete Metabolic Troponin I W LAB 08/05/16 Complete Hemolysis Index EKG EKG 08/05/[address] Head W/O Contrast CT 08/05/16 Taken 20:11 Ct Cervical Spine W/O CT 08/05/16 Taken Contrast 20:11 Ua, Dip Wreflex LAB 08/05/16 Complete Microsc & Biomass Boiler Operator 20:11 Lipase LAB 08/05/16 Complete Shoulder Right 2-3 RAD 08/05/16 Taken Views 20:11 Humerus Right 2 View RAD 08/05/16 Taken 20:11 Ct Thoracic Spine W/O CT 08/05/16 Taken Contrast 20:11 Ct Lumbar Spine W/O CT 08/05/16 Taken Contrast 20:[address] 08/05/16 Taken Chest/Abdomen/Pelvis 21:35 Normal Saline (Ns) PHA 08/05/16 Complete 22:45 Lab Results Laboratory Tests Test 08/05/16 21:20 08/05/16 21:33 White Blood Count 10.6T/MM3 Red Blood Count 4.22M/MM3 Hemoglobin 12.6GM/DL Hematocrit 37.4% Mean Corpuscular Volume 88.6UM3 Mean Corpuscular Hemoglobin 29.9UUG Mean Corpuscular Hemoglobin Concent 33.7GM/DL RDW Standard Deviation 40.2FL Platelet Count 233T/MM3 Mean Platelet Volume 9.8UM3 Immature Granulocyte % (Auto) 0.2% Neutrophils (%) (Auto) 77.8% Lymphocytes (%) (Auto) 11.7% Monocytes (%) (Auto) 9.0% Eosinophils (%) (Auto) 1.1% Basophils (%) (Auto) 0.2% Absolute Immature Granulocyte (auto 0.02T/MM3 Absolute Neutrophils (auto) 8.3T/MM3 Absolute Lymphocytes (auto) 1.3T/MM3 Absolute Monocytes (auto) 1.0T/MM3 Absolute Eosinophils (auto) 0.1T/MM3 Absolute Basophils (auto) 0.0T/MM3 Turbidity < 20 Sodium Level 139MEQ/L Potassium Level 4.5MEQ/L Chloride Level 99MEQ/L Carbon Dioxide Level 26MEQ/L Anion Gap 14MEQ/L Blood Urea Nitrogen 31.0MG/DL Creatinine 1.6MG/DL Glomerular Filtration Rate Calc 42 BUN/Creatinine Ratio 19RATIO Glucose Level 107MG/DL Calculated Osmolality 275MOSM/KG Calcium Level 13.1MG/DL Total Bilirubin 1.60MG/DL Icterus Index < 2 Aspartate Amino Transf (AST/SGOT) 20U/L Alanine Aminotransferase (ALT/SGPT) 32U/L Alkaline Phosphatase 91U/L Troponin I < 0.012ng/ml Total Protein 7.2G/DL Albumin 4.4G/DL Globulin 2.8G/DL Albumin/Globulin Ratio 1.6RATIO Lipase 36U/L Thyroid Stimulating Hormone (TSH) 2.16MIU/L Chemistry Specimen Hemolysis < 15 Urine Collection Type Cleancatch-midstream Urine Color Yellow Urine Turbidity Clear Urine pH 5.5 Urine Specific [place] 1.025 Urine Protein Negative Urine Glucose (UA) Trace Urine Ketones Negative Urine Blood Negative Urine Nitrite Negative Urine Bilirubin Negative Urine Urobilinogen 0.2EU/DL Urine Leukocyte Esterase Negative Urinalysis Comment Microscopic not ind. Progress Progress Labs / imaging were discussed in detail with the patient and family and questions are answered. Patient is placed in a sling to the right upper extremity with good alignment by the RN. Patient is distal neurovascular intact post-application of sling. Patient declines offered analgesic pain medication in the emergency department. Bruce catheter is placed by RN. Patient is given 500 mL normal saline intravenously times one. Patient is discussed with Dr. Maulik Dye and will be admitted to the service of Dr. Alford in improved condition. Patient and family are in agreement with the current plan of management. No further orders from accepting physician who is in agreement with the current plan of management. These findings were discussed in detail with the patient and family who verbalized agreement and understanding. 37 minutes of Critical Care time was assessed to the patient due to a calcium level of 13.1. Patient required repeated assessments at the bedside, complex medical decision-making and had potential for decompensation. CT thoracic spine: Multiple lung parenchymal metastases. Suspect hepatic metastatic disease. 5 cm right renal lesion suspicious for neoplasm. Multiple Schmorl nodes noted in the mid and lower thoracic levels. CT lumbar spine: Osseus metastatic disease. Several Schmorl nodes are visualized. Heterogeneous right renal lesion. EKG EKG : Rate: <60 Rhythm: sinus Craig: normal QRS: normal Intervals: normal ST/T: normal Interpreted by: signing physician CT CT : CT: Head no contrast Interpretation: Abnormal (age-related changes with findings of chronic microvascular ischemic disease. No acute intracranial abnormality. CT Cervical Spine: Pleural-parenchymal nodules at the lung apices bilaterally consistent with metastatic disease. Right clavicular fracture. 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 Right renal lesion which is nonspecific but highly suspicious for neoplasm. Enlarged prostate. Cholelithiasis. Distended urinary bladder. CT CHEST: Numerous lung parenchymal metastases bilaterally. Mildly prominent mediastinal lymph nodes nonspecific. Osseous metastasis take disease with restrictive lesion of the right anterior lateral 4th rib. Right clavicular fracture. ), Faxed Report JOSE YOUNG DO August 05, 2016 22:58
[2016-08-05] MEDS ORDERED: NITROGLYCERIN 0.4 MG SUBLINGUAL TABLET SL PRN (23:00)
[2016-08-05] MEDS ORDERED: GLUCOSE ORAL GEL 40% 37.5 G TUBE PO PRN (23:00)
[2016-08-05] MEDS ORDERED: LIDOCAINE JELLY 2% 20ml UROJET MM ONE (23:00)
[2016-08-05] MEDS ORDERED: ONDANSETRON 4mg/2ml INJECTION IV PRN (23:00)
[2016-08-05] MEDS ORDERED: ACETAMINOPHEN 325 MG TABLET PO PRN (23:00)
[2016-08-05] MEDS ORDERED: HYDROMORPHONE 2mg/ml INJECTION IV PRN (23:00)
[2016-08-05] MEDS ORDERED: DEXTROSE 50% SYRINGE 50ml (Eq. 1 AMP) IV PRN (23:00)
--- NOTE | 2016-08-05 23:25 | NUR ---
OUTPUT 625ML URINE EMPTIED AT THIS TIME.
--- NOTE | 2016-08-05 23:32 | NUR ---
report report from jade huggins in [place].
--- NOTE | 2016-08-05 23:40 | NUR ---
REPORT GIVEN TO YURIDIA REDMAN.
--- NOTE | 2016-08-05 23:45 | NUR ---
OUTPUT EMPTIED 600ML URINE FROM [facility] AT THIS TIME, REPORTED ADDITIONAL OUTPUT TO YURIDIA REDMAN.
--- NOTE | 2016-08-05 23:50 | NUR ---
admit pt admitted to room 136 via w/c from e.r accompanied by staff and spouse.
--- NOTE | 2016-08-05 23:50 | NUR ---
ADMIT PT TRANSFERRED TO MEDICAL UNIT VIA BY YURIDIA JOHNS.
[2016-08-05 23:54] VITALS: PULSE 66; RESP 16; O2SAT 94
[2016-08-06] VITALS (11 sets, daily range): BP systolic 115–171; BP diastolic 54–70; PULSE 59–68; RESP 14–26; TEMP 96.9–97.1; O2SAT 91–98; Ht 172.7 cm; Wt 96.4 kg
[2016-08-06] MEDS ORDERED: POLYETHYL.GLYCOL 3350 PACKET 17gm PO PRN (00:30)
--- NOTE | 2016-08-06 00:45 | HPPDOC ---
RACHAEL PEARSON MD 08/06/16 0035: HPI - Adult Date DATE: 08/06/16 TIME: 00:30 General Chief Complaint: weakness History of Present Illness This is a 80-year-old male that has had increasing weakness for the past 2-3 weeks. The patients had 3-4 episodes of falling. Patient clearly losing his balance. The patient fell it sounds like 1 week ago. Landed on his right shoulder. Patient had persistent middle back pain and shoulder pain since then. Does not the patient presents to the emergency department because of persistent weakness and falling. Workup in the emergency department is very disturbing for what appears to be metastatic widely cancer. Patient had a CT of the head which was unremarkable. Patient had a CT of the C-spine and thoracic spine. This demonstrated evidence of metastatic disease in the lungs bilaterally, liver, and kidney. Patient also had a fractured clavicle. At this time the patients calcium was found to be elevated at 13. The patient will be admitted to the hospital for further assessment and management of probable undiagnosed metastatic carcinoma. The patients bladder sniffily distended. Bruce catheter was placed in the emergency department. Patient does have a history dyslipidemia and diabetes and cardiac disease Past Medical History Past Medical History dyslipidemia, DM2, coronary artery disease Surgical History Patient's Surgical History: CABG, T and a Current Medications Home Meds Reported Medications Cholecalciferol (Vitamin D3) (Vitamin D) 400 Unit Capsule, 400 UNIT PO DAILY 08/05/16 Multivit-Min/FA/Lycopen/Lutein (Centrum Silver Men Tablet) 1 Each Tablet, 1 TAB PO DAILY 08/05/16 Folic Acid (Folic Acid) 0.4 Mg Tablet, 0.4 MG PO DAILY 08/05/16 Vitamin E (Vitamin E) 200 Unit Capsule, 200 UNIT PO DAILY 08/05/16 Ascorbic Acid (Vitamin C) 500 Mg Tablet, 500 MG PO DAILY 08/05/16 Cyanocobalamin (Vitamin B-12) (Vitamin B12) 5,000 Mcg Tab.rapdis, 5000 MCG PO DAILY 08/05/16 Pyridoxine HCl (Pyridoxine HCl) 50 Mg Tablet, 50 MG PO DAILY 08/05/16 Thiamine HCl (Vitamin B-1) 250 Mg Tablet, 250 MG PO DAILY 08/05/16 Insulin Glargine,Hum.rec.anlog (Lantus) 100 Unit/Ml Inj, 30 UNIT SQ HS 08/05/16 Trazodone HCl (Trazodone HCl) 50 Mg Tablet, 50 MG PO HS 08/05/16 Insulin Aspart (Novolog) 100 Unit/Ml Inj, 5-10 UNIT SQ TIDWM 08/05/16 Atorvastatin Calcium (Atorvastatin Calcium) 40 Mg Tablet, 40 MG PO HS 08/05/16 Aspirin (Aspir-Low) 81 Mg Tablet.dr, 81 MG PO HS 08/05/16 Atenolol (Atenolol) 25 Mg Tablet, 25 MG PO HS 08/05/16 Nitroglycerin (Nitrostat) 0.4 Mg Tablet, 0.4 MG PO Q5MIN Y for CHEST PAIN 08/05/16 Lisinopril (Lisinopril) 40 Mg Tablet, 40 MG PO HS 08/05/16 Allergies: Coded Allergies: No Known Allergies (Unverified , 08/06/16) Family History Family History: unkown Social History Social History Comments , retired [employer], served in [employer], [employer], [employer], worked on [employer], Review of Systems Unable to Obtain Comments Patient denies headache, denies change in vision, has a dry mouth, denies any neck pain, has mid back pain, after his fall, is not short of breath, has an occasional cough, no PND no orthopnea, the patient has no chest pain, patient denies abdominal pain, is nauseated without vomiting, is constipated, patient is pain to the mid back, has pain to the right shoulder, is generally weak, has increasing episodes of falling, is not confused, a 12 point review of systems is otherwise negative except for described above Physical Exam General General Nourishment: well nourished, well developed, obese, apparent age, adult General Body Habitus: well groomed Vital Signs Vital Signs Date Time Temp Pulse Resp B/P Pulse Ox O2 Delivery O2 Flow Rate FiO2 08/06/16 00:00 96.9 68 20 171/70 94 Room Air Height (Feet): 5 Height (Inches): 8.00 Telemetry Rhythm: Sinus Rhythm Eyes Brief: FOUND: EOMI, PERRL, NOT FOUND: scleral icterus, trauma Neck Brief: FOUND: midline, NOT FOUND: JVD, nuchal rigidity, other, spasm, tenderness, tracheal deviation Respiratory Brief: FOUND: clear all navarro, equal bilaterally, NOT FOUND: other , rales, spasm, symmetrical, tenderness, wheezes Cardiovascular (brief) Cardiac Brief: FOUND: regular rate, regular rhythm, NOT FOUND: click, gallop, murmur, other, peripheral edema, rub Capillary Refill: <2 sec Abdomen (brief) Abdominal Brief: FOUND: BS normo active x4, soft, NOT FOUND: distended, other, tender Musculoskeletal (brief) Comments per nursing pain to palpation mid thoracic spine Neurologic RN Documented GCS Eye Opening: Verbal: Motor: Total: Psychiatric (brief) FOUND: alert, attentive, normal affect, oriented Laboratory Laboratory Tests Test 08/05/16 21:20 08/05/16 21:33 White Blood Count 10.6T/MM3 Red Blood Count 4.22M/MM3 Hemoglobin 12.6GM/DL Hematocrit 37.4% Mean Corpuscular Volume 88.6UM3 Mean Corpuscular Hemoglobin 29.9UUG Mean Corpuscular Hemoglobin Concent 33.7GM/DL RDW Standard Deviation 40.2FL Platelet Count 233T/MM3 Mean Platelet Volume 9.8UM3 Immature Granulocyte % (Auto) 0.2% Neutrophils (%) (Auto) 77.8% Lymphocytes (%) (Auto) 11.7% Monocytes (%) (Auto) 9.0% Eosinophils (%) (Auto) 1.1% Basophils (%) (Auto) 0.2% Absolute Immature Granulocyte (auto 0.02T/MM3 Absolute Neutrophils (auto) 8.3T/MM3 Absolute Lymphocytes (auto) 1.3T/MM3 Absolute Monocytes (auto) 1.0T/MM3 Absolute Eosinophils (auto) 0.1T/MM3 Absolute Basophils (auto) 0.0T/MM3 Turbidity < 20 Sodium Level 139MEQ/L Potassium Level 4.5MEQ/L Chloride Level 99MEQ/L Carbon Dioxide Level 26MEQ/L Anion Gap 14MEQ/L Blood Urea Nitrogen 31.0MG/DL Creatinine 1.6MG/DL Glomerular Filtration Rate Calc 42 BUN/Creatinine Ratio 19RATIO Glucose Level 107MG/DL Calculated Osmolality 275MOSM/KG Calcium Level 13.1MG/DL Total Bilirubin 1.60MG/DL Icterus Index < 2 Aspartate Amino Transf (AST/SGOT) 20U/L Alanine Aminotransferase (ALT/SGPT) 32U/L Alkaline Phosphatase 91U/L Troponin I < 0.012ng/ml Total Protein 7.2G/DL Albumin 4.4G/DL Globulin 2.8G/DL Albumin/Globulin Ratio 1.6RATIO Lipase 36U/L Thyroid Stimulating Hormone (TSH) 2.16MIU/L Chemistry Specimen Hemolysis < 15 Urine Collection Type Cleancatch-midstream Urine Color Yellow Urine Turbidity Clear Urine pH 5.5 Urine Specific Henderson 1.025 Urine Protein Negative Urine Glucose (UA) Trace Urine Ketones Negative Urine Blood Negative Urine Nitrite Negative Urine Bilirubin Negative Urine Urobilinogen 0.2EU/DL Urine Leukocyte Esterase Negative Urinalysis Comment Microscopic not ind. Radiology see CT results from ED. patient with sig metastatic ds in liver, lung, kidney, enlarged bladder, lytic lesion in all vetebral bodies. patient with fx to right clavicle Assessment & Plan Assessment 1. Hypercalcemia acute present on admission: This is definitely related to metastatic disease to bone. Tonight we will hydrate aggressively with saline. Repeat calcium in the morning. Most likely will need pamidronate. Patients mental status is intact tonight. 2. 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 This is a presumptive diagnosis. Imagings tonight would demonstrate high likelihood of cancer. Oncology consultation in the morning. Patient will most likely need formal CTs of the chest abdomen and pelvis tomorrow. The images did not reveal related to spinous CTs. Also patient will need a tissue diagnosis. Once imaging are completed. Consultation with radiology to determine if there is a readily accessible to her mass to be bx. 3. Dyslipidemia chronic present on admission: Well hold statin therapy while hospitalized, consider restarting at discharge 4. Type 2 diabetes mellitus chronic present on admission: We will do a sliding scale. 5. Coronary disease chronic present on admission: Currently no cardiac symptoms. Well continue beta ivet, aspirin, nitroglycerin when necessary, no evidence to suggest exacerbation 6. Acute kidney injury present admission: Related to tumor, hypercalcemia, dehydration. IV fluids, repeat labs in the morning 7. Urinary retention and acute present admission: Catheterization placed 8. DVT prophylaxis: Heparin and SCD Spent significant amount of time talking the patient and . Informed him that the likely diagnosis is metastatic cancer. They are aware that this a presumptive diagnosis tonight. There were that there is a slight chance it is not. Cancer workup is to be started. Very nice patient and . DVT Prophylaxis: SCD'S Code Status Full Code Hospital Course Summary Disclaimer The hospital course summary below is not to be considered part of the above Progress Note. ZELALEM BEARDEN MD 08/06/16 1003: Past Medical History Current Medications Home Meds Reported Medications Cholecalciferol (Vitamin D3) (Vitamin D) 400 Unit Capsule, 400 UNIT PO DAILY 08/05/16 Multivit-Min/FA/Lycopen/Lutein (Centrum Silver Men Tablet) 1 Each Tablet, 1 TAB PO DAILY 08/05/16 Folic Acid (Folic Acid) 0.4 Mg Tablet, 0.4 MG PO DAILY 08/05/16 Vitamin E (Vitamin E) 200 Unit Capsule, 200 UNIT PO DAILY 08/05/16 Ascorbic Acid (Vitamin C) 500 Mg Tablet, 500 MG PO DAILY 08/05/16 Cyanocobalamin (Vitamin B-12) (Vitamin B12) 5,000 Mcg Tab.rapdis, 5000 MCG PO DAILY 08/05/16 Pyridoxine HCl (Pyridoxine HCl) 50 Mg Tablet, 50 MG PO DAILY 08/05/16 Thiamine HCl (Vitamin B-1) 250 Mg Tablet, 250 MG PO DAILY 08/05/16 Insulin Glargine,Hum.rec.anlog (Lantus) 100 Unit/Ml Inj, 30 UNIT SQ HS 08/05/16 Trazodone HCl (Trazodone HCl) 50 Mg Tablet, 50 MG PO HS 08/05/16 Insulin Aspart (Novolog) 100 Unit/Ml Inj, 5-10 UNIT SQ TIDWM 08/05/16 Atorvastatin Calcium (Atorvastatin Calcium) 40 Mg Tablet, 40 MG PO HS 08/05/16 Aspirin (Aspir-Low) 81 Mg Tablet.dr, 81 MG PO HS 08/05/16 Atenolol (Atenolol) 25 Mg Tablet, 25 MG PO HS 08/05/16 Nitroglycerin (Nitrostat) 0.4 Mg Tablet, 0.4 MG PO Q5MIN Y for CHEST PAIN 08/05/16 Lisinopril (Lisinopril) 40 Mg Tablet, 40 MG PO HS 08/05/16 Allergies: Coded Allergies: No Known Allergies (Unverified , 08/06/16) Assessment & Plan Assessment 08/06/2016-Dr. Bearden I have reviewed the H&P above, lab, med rec, and radiology. I agree with the H& P above along with my additions below. Chief complaint: Weakness, falls, right shoulder pain History of present illness: The patient is a pleasant 80-year-old male who has had weakness and several falls over the past couple of weeks. He also states that he has lost 32 pounds in the past 20 days. He states he's eating less because of pain in his "rear-end". He states that he feels like he can't have a bowel movement. After Bruce catheter was placed last night for urinary retention the pain in his "rear-end" resolved. He states most of his falls were because of carelessness. He denies any chest pains or lightheadedness. He denies any shortness of breath. He denies any nausea or vomiting. He denies any headache or abdominal pain. He denies any vision changes. He does complain of pain in his shoulder and points to the right clavicle as the area of his pain. He states he did fall and hit this area as well as hitting his head. Presents of review of systems is negative other than the above in history of present illness Past medical history is significant for diabetes, coronary artery disease, hyperlipidemia, hypertension Past surgical history significant for bypass Family history: No family history of cancer Social history the patient is and a lifelong nonsmoker Medications and allergies are reviewed Physical exam Patient is a very pleasant 80-year-old male in no acute distress. He is alert and oriented 3. HEENT reveals sclerae to be anicteric and oropharynx is moist. Neck is supple. Chest is clear to auscultation. Cardiovascular reveals a regular rate and rhythm without murmur. Abdomen is soft and nontender with positive bowel sounds. Extremities are free of edema. Motor strength is equal in all 4 extremities. Skin is warm and dry and without rashes. Labs this morning shows hemoglobin 11.2 down from 12.6, likely dilutional. White count and platelets are okay. Differential is essentially normal Comprehensive metabolic shows BUN down to 27 from 31, creatinine down to 1.4 from 1.6. Calcium improved from 13.1 down to 12.1. Bilirubin 1.5. Total protein 5.9. Globulin 2.2. TSH is normal at 2.16. INR and PTT are pending CT thoracic spine shows no bony metastases. CT lumbar spine shows lytic foci of skeletal metastasis in the ilium bilaterally. No definite spinal metastasis or acute appearing compression fracture. Cervical spine shows no acute traumatic abnormality of the cervical spine. Advanced degenerative disc disease and mild diffuse posterior facet adenopathy. No clear subluxation. Probable pathologic fracture of the medial right clavicle. Right Shoulder x-ray shows innumerable pulmonary metastasis. No definite skeletal metastasis to the right shoulder. No dislocation or bony destructive process. Right Humeral x-ray shows no acute osseous abnormality. CT chest, abdomen and pelvis Chest: There are innumerable pulmonary metastases diffusely spread throughout both lungs. There is no clear mediastinal or hilar adenopathy. No definite metastasis to the thoracic spine or included ribs. No pleural effusion. Heart size is normal. No pericardial effusion. CT ABDOMEN: There is a neck cephalic mass projecting posteriorly from the right kidney suspicious for a primary renal carcinoma. No definite hydronephrosis. There is mild bilateral perinephric stranding. There are some vascular calcifications centrally within both kidneys. No definite nonobstructing urinary calculus. The liver, spleen, pancreas, and adrenal glands are unremarkable in contour. The gallbladder is filled with hyperdense material suggesting gallstones. There is moderate calcification of the abdominal aorta without aneurysmal dilation. No definite retroperitoneal or mesenteric adenopathy. There is no retroperitoneal or mesenteric adenopathy. No definite bony metastasis to the lumbar spine. CT PELVIS: The urinary bladder is moderately distended. There is extensive colonic diverticulosis without evidence of diverticulitis. The prostate gland is heterogeneously enlarged. The seminal vesicles are not enlarged. There is no pelvic sidewall adenopathy. No free fluid. There are a few sclerotic bony foci and lytic foci suspicious for bony pelvic metastases. IMPRESSION: Innumerable pulmonary metastasis with a few osseous metastases and suspicious mass in the right kidney suspicious for primary renal carcinoma. This could also represent prostate carcinoma. Moderate urinary bladder distention which could suggest bladder outlet obstruction. Cholelithiasis without evidence for cholecystitis. Extensive distal colonic diverticulosis without evidence of diverticulitis. 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 Continue IV fluids. Calcium is improving. Continue to monitor with IV fluids and off of calcium and vitamin D. Dr. Gilliam, oncologist consulted. He recommends biopsy. I did call and talk with Dr. Warren, radiologist and he thinks the renal mass would be the safest to biopsy. Will biopsy greater than 12 hours after last heparin subcutaneous dose. We'll check INR and PTT prior. We'll consult orthopedics regarding right clavicular fracture. Monitor Accu-Cheks and give insulin as needed Continue with Bruce catheterization for urinary retention MiraLAX for constipation Repeat CBC, BMP and calcium in a.m. Continue atenolol and lisinopril PT and OT consult Stop aspirin and heparin for now. SCDs for DVT prophylaxis. Possibly restart aspirin and heparin postprocedure if doing well RCAHAEL PEARSON MD August 06, 2016 00:35 ZELALEM BEARDEN MD August 06, 2016 10:03
[2016-08-06] MEDS ORDERED: HEPARIN SUB-Q 5,000 unit/0.5ml vial SQ SCH (01:00)
--- NOTE | 2016-08-06 01:00 | NUR ---
Orders: Received verbal orders from Dr. Dye that IV Fluids are to be 125ml/hr, add Miralax PRN BID, and Ambien 5mg PRN. This nurse verbalized understanding.
[2016-08-06] MEDS: ATENOLOL 25 MG PO SCH ×2 (01:02→22:00)
[2016-08-06] MEDS: TRAZODONE 50 MG TABLET PO SCH ×2 (01:02→22:00)
[2016-08-06] MEDS: ZOLPIDEM 5 MG TABLET PO PRN (01:02)
[2016-08-06] MEDS: NORMAL SALINE 1,000 ML IV SCH ×3 (01:51→21:10)
--- NOTE | 2016-08-06 05:16 | NUR ---
SHIFT SUMMARY PATIENT ALERT AND ORIENTED X 3. PT HAS SLEPT OFF AND ON SINCE ADMIT. VSS, PT ON RA. PT DENIES PAIN/N/V/SOA. SLING TO RIGHT ARM DUE TO RIGHT CLAVICLE FRACTURE. PALOMARES CATHETER TO DEPENDENT DRAINAGE. NPO DIET. NS RUNNING @ 125ML/HR IN LEFT FOREARM. BILAT SCD'S. BED LOCKED AND LOW, BED ALARM ON. CALL LIGHT WITHIN REACH. WILL CONTINUE TO MONITOR.
[2016-08-06 05:19] LABS: BASOPHILS % (AUTO) 0.1 % (0-2); EOSINOPHILS # (AUTO) 0.2 T/MM3 (0-0.5); EOSINOPHILS % (AUTO) 1.8 % (0-4); HCT - HEMATOCRIT 34.6 % (41-53); HGB - HEMOGLOBIN 11.2 GM/DL (13.5-17.5); IMMATURE GRANULOCYTE # (AUTO) 0.01 T/MM3 (0.00-0.03); IMMATURE GRANULOCYTE % (AUTO) 0.1 % (0.0-0.5); LYMPHOCYTES # (AUTO) 1.5 T/MM3 (1-4.8); LYMPHOCYTES % (AUTO) 16.4 % (23-45); MEAN CORPUSCULAR HGB 29.2 UUG (26-34); MEAN CORPUSCULAR HGB CONC(MCHC 32.4 GM/DL (31-37); MEAN CORPUSCULAR VOLUME 90.1 UM3 (80-100); MEAN PLATELET VOLUME 10.3 UM3 (9.4-12.4); MONOCYTES # (AUTO) 0.9 T/MM3 (0-0.8); MONOCYTES % (AUTO) 9.9 % (0-9.0); NEUTROPHILS #(AUTO)-ABSOLUTE 6.5 T/MM3 (1.8-7.7); NEUTROPHILS % (AUTO) 71.7 % (33-66); RED BLOOD COUNT 3.84 M/MM3 (4.50-5.90)
[2016-08-06 05:36] LABS: ALBUMIN 3.7 G/DL (3.5-5.0); ALBUMIN/GLOBULIN RATIO 1.7 RATIO (1.1-2.2); ALKALINE PHOSPHATASE 71 U/L (38-126); ALT (SGPT) 29 U/L (21-72); ANION GAP 11 MEQ/L (5-15); AST (SGOT) 19 U/L (17-59); BUN/CREATININE RATIO 19 RATIO (6-26); CALCIUM 12.1 MG/DL (8.4-10.2); CHLORIDE 104 MEQ/L (98-107); CO2 - CARBON DIOXIDE 23 MEQ/L (22-30); CREATININE 1.4 MG/DL (0.8-1.5); GLOMERULAR FILTRATION RATE 49; GLUCOSE 103 MG/DL (75-110); POTASSIUM 4.3 MEQ/L (3.6-5); SODIUM 138 MEQ/L (134-144); TOTAL PROTEIN 5.9 G/DL (6.3-8.2)
--- NOTE | 2016-08-06 08:33 | DI ---
Indication: ITS.REASON: pain PROCEDURE: CT CHEST/ABDOMEN/PELVIS W/O: Encounter: Subsequent Comparison: None Technique: Axial CT images were performed through the chest, abdomen and pelvis without intravenous contrast. Coronal and sagittal two-dimensional reformats. Automated Exposure Control and Iterative Reconstruction dose reducing techniques were utilized. Findings: Chest: There are innumerable pulmonary metastases diffusely spread throughout both lungs. There is no clear mediastinal or hilar adenopathy. No definite metastasis to the thoracic spine or included ribs. No pleural effusion. Heart size is normal. No pericardial effusion. CT ABDOMEN: There is a neck cephalic mass projecting posteriorly from the right kidney suspicious for a primary renal carcinoma. No definite hydronephrosis. There is mild bilateral perinephric stranding. There are some vascular calcifications centrally within both kidneys. No definite nonobstructing urinary calculus. The liver, spleen, pancreas, and adrenal glands areunremarkable in contour. The gallbladder is filled with hyperdense material suggesting gallstones. There is moderate calcification of the abdominal aorta without aneurysmal dilation. No definite retroperitoneal or mesenteric adenopathy. There is no retroperitoneal or mesenteric adenopathy. No definite bony metastasis to the lumbar spine. CT PELVIS: The urinary bladder is moderately distended. There is extensive colonic diverticulosis without evidence of diverticulitis. The prostate gland is heterogeneously enlarged. The seminal vesicles are not enlarged. There is no pelvic sidewall adenopathy. No free fluid. There are a few sclerotic bony foci and lytic foci suspicious for bony pelvic metastases. IMPRESSION: Innumerable pulmonary metastasis with a few osseous metastases and suspicious mass in the right kidney suspicious for primary renal carcinoma. This could also represent prostate carcinoma. Moderate urinary bladder distention which could suggest bladder outlet obstruction. Cholelithiasis without evidence for cholecystitis. Extensive distal colonic diverticulosis without evidence of diverticulitis. .
--- NOTE | 2016-08-06 08:48 | DI ---
Indication: ITS.REASON: pain PROCEDURE: SHOULDER RIGHT 2-3 VIEWS: Encounter: Initial Comparison: None Findings: There is no acute fracture, dislocation or malalignment identified. The included portions of the lungs demonstrate innumerable pulmonary metastases. There is no definite bony lesion identified with certainty. There is moderate AC joint disease and there is some spurring of the rater tubercle the proximal humerus. Impression: Innumerable pulmonary metastases. No definite skeletal metastasis to the right shoulder. No dislocation or bony destructive process. .
--- NOTE | 2016-08-06 08:52 | DI ---
Indication: ITS.REASON: pain PROCEDURE: HUMERUS RIGHT 2 VIEW: Encounter: Initial Comparison: None Findings: There is no acute fracture, dislocation or malalignment identified. No soft tissue mass or abnormal calcification. No radiopaque foreign body. Impression: No acute osseous abnormality. .
--- NOTE | 2016-08-06 08:55 | DI ---
Indication: ITS.REASON: pain PROCEDURE: CT LUMBAR SPINE W/O CONTRAST: Encounter: Initial Comparison: None Findings: There is moderate vacuum phenomenon of the disc spaces in the region of the thoracolumbar junction. There is mild diffuse osteopenia without definite bony destructive process. No definite acute appearing fracture. No paraspinal abnormality. There are lytic foci in the ilium bilaterally in the left anterior ilium adjacent to the sacroiliac joint and about the mid ileum laterally with destruction of the lateral wall of the ileum. There are also a few sclerotic foci which could represent bone islands. Impression: Lytic foci of skeletal metastases in the the ilium bilaterally. No definite spinal metastasis or acute appearing compression fracture. .
--- NOTE | 2016-08-06 08:58 | DI ---
Indication: ITS.REASON: pain PROCEDURE: CT THORACIC SPINE W/O CONTRAST: Encounter: Initial Comparison: None Findings: There are innumerable pulmonary metastases. There is no definite bony metastasis to the thoracic spine are included portions of the ribs. There is a renal mass on the right. Impression: No definite bony metastasis of the thoracic spine. .
--- NOTE | 2016-08-06 09:01 | DI ---
Indication: ITS.REASON: fall PROCEDURE: CT HEAD W/O CONTRAST: Encounter: Initial Comparison: None Technique: Axial CT images through the head were performed without contrast. Iterative Reconstruction dose reducing technique was utilized. FINDINGS: The ventricles are of normal size, shape, and contour for the patient's age. There are scattered areas of low attenuation in the white matter which most likely represent changes from chronic microvascular ischemia. The brainstem, cerebellum, and cerebral hemispheres otherwise have a normal morphology and CT attenuation. There is no evidence of midline displacement. No hemorrhage, signs of acute territorial stroke, mass effect, mass lesions, or edema is evident. The visualized portions of the skull base, midface, and calvarium demonstrate no abnormality. The paranasal sinuses are well aerated and free of significant disease. The tympanic and mastoid cavities appear normal. IMPRESSION: No acute intracranial abnormality or hemorrhage. No definite mass lesion, mass effect, or midline shift. .
--- NOTE | 2016-08-06 09:04 | DI ---
Indication: ITS.REASON: fall PROCEDURE: CT CERVICAL SPINE W/O CONTRAST: Encounter: Initial Comparison: None Technique: Axial CT images through the cervical spine were performed without contrast. Coronal and sagittal reformatted images were also obtained. Automated Exposure Control and Iterative Reconstruction dose reducing techniques were utilized. FINDINGS: The alignment of the cervical spine is normal. Multilevel degenerative changes are present. There is no evidence of acute fracture or subluxation of the cervical spine. There is advanced degenerative disc disease with moderate disc space narrowing and hypertrophic uncovertebral joint spur hypertrophy maximal at C6-7 but also at C5-C6 and C4-C5. There is mild diffuse posterior facet arthropathy.The atlantoaxial articulation, dens, and upper cervical spine demonstrate no subluxation. There is no evidence of significant spinal stenosis, foraminal compromise, or significant disk herniation. The paraspinal soft tissues and spinal canal appear unremarkable. There is a probable pathologic fracture of the medial right clavicle suggesting underlying bony metastasis. IMPRESSION: No acute traumatic abnormality of the cervical spine. Advanced degenerative disc disease and mild diffuse posterior facet arthropathy. No clear subluxation. Probable pathologic fracture of the medial right clavicle. .
--- NOTE | 2016-08-06 10:26 | CONSPD ---
Consultation Info Date DATE: 08/06/16 TIME: 10:19 Attending Physician Rob Childress MD Reason for Consultation: Right Clavicle Fracture Impression/Recommendation Impression/Recommendation: (1) Closed right clavicular fracture Status: Acute Qualifiers: Encounter type: initial encounter Clavicle location: sternal end Fracture alignment: anteriorly displaced Qualified Codes: S42.011A - Anterior displaced fracture of sternal end of right clavicle, initial encounter for closed fracture (2) Metastatic cancer Status: Acute Recommendation: Patient appears to have a traumatic right medial clavicle fracture from recent fall. No true clavicle xrays were obtained, so will order now. On viewing shoulder films and CT, does not appear to be pathologic in nature at this time. Recommend sling for comfort. Ice prn. Analgesics per medicine. NWB right UE. Currently being worked up for widely metastatic CA. Ortho HPI HPI Elements Location: FOUND shoulder (right clavicle, medial) Injury: Yes (Fall) Pain: FOUND sharp, FOUND throbbing, FOUND ache Onset: Sudden Radiating: No Severity: FOUND moderate Duration: FOUND several days (Multiple previous falls) Previous Surgery: No Previous Injury: Yes (multiple falls) Aggrevated by: FOUND pushing, FOUND pulling, FOUND overhead use Associated Symptoms: FOUND swelling, NOT FOUND numbness Treatments Tried: FOUND other (none) X-ray Findings: FOUND other (CT confirms right medial clavicle fx, slight anterior displacement of lateral fragment) Recommendation: FOUND other (Sling for comfort) Review of Systems Constitutional: REPORTS: dizziness, fatigue, weakness Comments frequent falls Cardiovascular dyspnea on exertion, DENIES: chest pain Rhythm/Rate: DENIES: irregular beat, palpitations Vascular: DENIES: pallor of an extremity, pedal edema Pulmonary Respiratory: dyspnea, DENIES: cough, pleuritic chest pain GI Upper Abdomen: DENIES: nausea, vomiting General: DENIES: frequency, pain, urgency Musculoskeletal General: joint pain, pain (LBP, right clavicle), tenderness, weakness Lumbar: pain Integumentary Skin: DENIES: sores, tumor Neurological General: poor coordination, weakness, DENIES: numbness Psychiatric Psychiatric: DENIES: anxiety, depression Hematologic/Lymphatic DENIES: easy bruising All Other Systems Reviewed (remainder of 10-point ROS Neg.) Past Medical History Adult Problem List Updates dyslipidemia, DM2, coronary artery disease Surgical History Patient's Surgical History: CABG, T and a Current Medications Ascorbic Acid (Vitamin C) 500 Mg Tablet, 500 MG PO DAILY, (Reported) Last Taken: Unknown Dose on 08/05/16 08 Aspirin (Aspir-Low) 81 Mg Tablet.dr , 81 MG PO HS, (Reported) Last Taken: Unknown Dose on 08/04/162199 Atenolol (Atenolol) 25 Mg Tablet, 25 MG PO HS, (Reported) Last Taken: Unknown Dose on 08/04/162199 Atorvastatin Calcium (Atorvastatin Calcium) 40 Mg Tablet, 40 MG PO HS, (Reported) Last Taken: Unknown Dose on 08/04/162199 Cholecalciferol (Vitamin D3) ( Vitamin D) 400 Unit Capsule, 400 UNIT PO DAILY, (Reported) Last Taken: Unknown Dose on 08/05/16799 Cyanocobalamin (Vitamin B-12) ( Vitamin B12) 5,000 Mcg Tab.rapdis, 5,000 MCG PO DAILY, (Reported) Last Taken: Unknown Dose on 08/05/16799 Folic Acid (Folic Acid) 0.4 Mg Tablet, 0.4 MG PO DAILY, (Reported) Last Taken: Unknown Dose on 08/05/16799 Insulin Aspart (Novolog) 100 Unit/ Ml Inj, 5-10 UNIT SQ TIDWM, (Reported) Last Taken: 7 units on 08/05/16799 Insulin Glargine,Hum.rec.anlog (Lantus) 100 Unit/Ml Inj, 30 UNIT SQ HS, (Reported) Last Taken: Unknown Dose on 08/04/162199 Lisinopril (Lisinopril) 40 Mg Tablet , 40 MG PO HS, (Reported) Last Taken: Unknown Dose on 08/04/160 Multivit-Min/FA/Lycopen/Lutein ( Centrum Silver Men Tablet) 1 Each Tablet, 1 TAB PO DAILY, (Reported) Last Taken: Unknown Dose on 08/05/16 08 Nitroglycerin (Nitrostat) 0.4 Mg Tablet, 0.4 MG PO Q5MIN PRN for CHEST PAIN, (Reported) Last Taken: Unknown Dose on Unknown Date & Time Pyridoxine HCl (Pyridoxine HCl) 50 Mg Tablet, 50 MG PO DAILY, (Reported) Last Taken: Unknown Dose on 08/05/16 08 Thiamine HCl (Vitamin B-1) 250 Mg Tablet, 250 MG PO DAILY, (Reported) Last Taken: Unknown Dose on 08/05/16 0800 Trazodone HCl (Trazodone HCl) 50 Mg Tablet, 50 MG PO HS, (Reported) Last Taken: Unknown Dose on 08/04/16 2200 Vitamin E (Vitamin E) 200 Unit Capsule, 200 UNIT PO DAILY, (Reported) Last Taken: Unknown Dose on 08/05/16 0800 Allergies Allergies: Coded Allergies: No Known Allergies (Unverified , 08/06/16) Family History Family History: unkown Vaccines No Social History Smoking Status: Never smoker Substance Use Type: does not use Alcohol Intake: none Advance Directives: No DPOA for Healthcare Only Physical Exam General General: well nourished, well developed, no acute distress Respiratory FOUND non-labored Cardiovascular FOUND pedal pulses intact Capillary Refill: <2 sec Abdomen Abdominal: FOUND soft, NOT FOUND distended, NOT FOUND tender Musculoskeletal Musculoskeletal : Side: Right (clavicle) Comments Mild swelling right medial clavicle. No appreciable step-off though ttp. Good pulses. Normal shoulder, elbow, wrist ROM and strength. NVI Musculoskeletal Brief: FOUND: tenderness Integumentary FOUND dry, FOUND pink, FOUND warm Neurologic FOUND intact to light touch, FOUND no deficits Psychiatric FOUND alert, FOUND attentive, FOUND normal affect, FOUND oriented Laboratory Laboratory Tests Test 08/05/16 21:20 08/05/16 21:33 08/06/16 04:49 08/06/16 06:23 White Blood Count 10.6T/MM3 9.0T/MM3 Red Blood Count 4.22M/MM3 3.84M/MM3 Hemoglobin 12.6GM/DL 11.2GM/DL Hematocrit 37.4% 34.6% Mean Corpuscular Volume 88.6UM3 90.1UM3 Mean Corpuscular Hemoglobin 29.9UUG 29.2UUG Mean Corpuscular Hemoglobin Concent 33.7GM/DL 32.4GM/DL RDW Standard Deviation 40.2FL 40.7FL Platelet Count 233T/MM3 198T/MM3 Mean Platelet Volume 9.8UM3 10.3UM3 Immature Granulocyte % (Auto) 0.2% 0.1% Neutrophils (%) (Auto) 77.8% 71.7% Lymphocytes (%) (Auto) 11.7% 16.4% Monocytes (%) (Auto) 9.0% 9.9% Eosinophils (%) (Auto) 1.1% 1.8% Basophils (%) (Auto) 0.2% 0.1% Absolute Immature Granulocyte (auto 0.02T/MM3 0.01T/MM3 Absolute Neutrophils (auto) 8.3T/MM3 6.5T/MM3 Absolute Lymphocytes (auto) 1.3T/MM3 1.5T/MM3 Absolute Monocytes (auto) 1.0T/MM3 0.9T/MM3 Absolute Eosinophils (auto) 0.1T/MM3 0.2T/MM3 Absolute Basophils (auto) 0.0T/MM3 0.0T/MM3 Turbidity < 20 < 20 Sodium Level 139MEQ/L 138MEQ/L Potassium Level 4.5MEQ/L 4.3MEQ/L Chloride Level 99MEQ/L 104MEQ/L Carbon Dioxide Level 26MEQ/L 23MEQ/L Anion Gap 14MEQ/L 11MEQ/L Blood Urea Nitrogen 31.0MG/DL 27.0MG/DL Creatinine 1.6MG/DL 1.4MG/DL Glomerular Filtration Rate Calc 42 49 BUN/Creatinine Ratio 19RATIO 19RATIO Glucose Level 107MG/DL 103MG/DL Calculated Osmolality 275MOSM/KG 271MOSM/KG Calcium Level 13.1MG/DL 12.1MG/DL Total Bilirubin 1.60MG/DL 1.50MG/DL Icterus Index < 2 < 2 Aspartate Amino Transf (AST/SGOT) 20U/L 19U/L Alanine Aminotransferase (ALT/SGPT) 32U/L 29U/L Alkaline Phosphatase 91U/L 71U/L Troponin I < 0.012ng/ml Total Protein 7.2G/DL 5.9G/DL Albumin 4.4G/DL 3.7G/DL Globulin 2.8G/DL 2.2G/DL Albumin/Globulin Ratio 1.6RATIO 1.7RATIO Lipase 36U/L Thyroid Stimulating Hormone (TSH) 2.16MIU/L Chemistry Specimen Hemolysis < 15 < 15 Urine Collection Type Cleancatch-midstream Urine Color Yellow Urine Turbidity Clear Urine pH 5.5 Urine Specific [place] 1.025 Urine Protein Negative Urine Glucose (UA) Trace Urine Ketones Negative Urine Blood Negative Urine Nitrite Negative Urine Bilirubin Negative Urine Urobilinogen 0.2EU/DL Urine Leukocyte Esterase Negative Urinalysis Comment Microscopic not ind. Glucometer 90mg/dL ROB CHILDRESS MD August 06, 2016 10:23
[2016-08-06 10:41] LABS: INR 1.12 (0.76-1.04); PROTHROMBIN TIME 12.2 SEC (9.31-12.49); PTT 28.5 SEC (24-36)
[2016-08-06] MEDS: POLYETHYL.GLYCOL 3350 PACKET 17gm PO SCH ×2 (11:54→21:00)
--- NOTE | 2016-08-06 11:57 | DI ---
Indication: ITS.REASON: Right medial clavicle fracture PROCEDURE: CLAVICLE RIGHT: Encounter: Initial Comparison: None Findings: The medial right clavicle is not well seen. There is no definite displaced fracture or bony destruction of the lateral clavicle. The right shoulder is unremarkable. Impression: Medial clavicular fracture is not well seen with standard clavicle views. .
[2016-08-06] MEDS: INSULIN ASPART 100 UNIT/ML SQ PRN ×3 (12:09→21:20)
--- NOTE | 2016-08-06 14:52 | NUR ---
CM CM IN TO VISIT WITH PT AND . CM EXPLAINED ROLE AND PROVIDED CONTACT INFORMATION. PT/ PLAN TO DC HOME AND DENY NEEDS AT THE TIME. PT/FAMILY AWARE TO CALL CM SHOULD NEEDS ARISE.
[2016-08-06] MEDS ORDERED: LIDOCAINE 1% (10mg/ml) 5ml VIAL ONE (15:00)
--- NOTE | 2016-08-06 16:28 | DI ---
Indication: ITS.REASON PROCEDURE: CT BIOPSY KIDNEY: Encounter: Initial Comparison: 08/06/2016 TECHNIQUE: After obtaining informed consent, the patient is taken to CT suite and placed in the prone position. Automated Exposure Control and Iterative Reconstruction dose reducing techniques were utilized. A "timeout procedure" was performed prior to initiating the procedure. CT guidance was utilized to locate the safest avenue for percutaneous biopsy. A posterior approach was chosen. A 1% Xylocaine was used for local anesthesia. The patient was able to complete the procedure without the need for sedation. The patient was continuously monitored with an independent trained nurse observer using pulse oximetry, EKG monitoring, and intermittent blood pressure monitoring. A coaxial core biopsy needle system was passed under CT guidance into the mass in the posterior right kidney.. A single 3 cm core was obtained using an 18-gauge BioPince coaxial core needle system. The core material obtained appear to be adequate for diagnosis. The needle was then removed and a sterile dressing applied. There is no significant hemorrhage or other complication postbiopsy. IMPRESSION: Successful CT-guided biopsy of right renal mass. Patient tolerated the procedure well without evidence of immediate complication. .
[2016-08-06] MEDS: HYDROCODONE/APAP 5 mg/325 mg TABLET PO PRN (17:23)
--- NOTE | 2016-08-06 17:33 | CONSPD ---
Consultation Info Date DATE: 08/06/16 TIME: 17:24 Date of Consultation: August 06, 2016 Attending Physician: Dr. Bearden Reason for Consultation: Renal mass, hypercalcemia HPI - Adult Date DATE: 08/06/16 TIME: 17:24 General Chief Complaint: weakness History of Present Illness This is a 80-year-old male that has had increasing weakness for the past 2-3 weeks. The patients had 3-4 episodes of falling. Patient clearly losing his balance. The patient fell it sounds like 1 week ago. Landed on his right shoulder. Patient had persistent middle back pain and shoulder pain since then. Patient presents to the emergency department because of persistent weakness and falling. Workup in the emergency department is very disturbing for what appears to be metastatic widely cancer. Patient had a CT of the head which was unremarkable. Patient had a CT of the C-spine and thoracic spine. This demonstrated evidence of metastatic disease in the lungs bilaterally, liver , and kidney. Patient also had a fractured clavicle at right medial clavicle. At this time of admission the patients calcium was found to be elevated at 13. He has actually been declining since May. He has some episodes of confusion. Falls are definitely concerned for LABEL CUTTER event. Past Medical History Past Medical History dyslipidemia, DM2, coronary artery disease Surgical History Patient's Surgical History: CABG, T and a Current Medications Home Meds Reported Medications Cholecalciferol (Vitamin D3) (Vitamin D) 400 Unit Capsule, 400 UNIT PO DAILY 08/05/16 Multivit-Min/FA/Lycopen/Lutein (Centrum Silver Men Tablet) 1 Each Tablet, 1 TAB PO DAILY 08/05/16 Folic Acid (Folic Acid) 0.4 Mg Tablet, 0.4 MG PO DAILY 08/05/16 Vitamin E (Vitamin E) 200 Unit Capsule, 200 UNIT PO DAILY 08/05/16 Ascorbic Acid (Vitamin C) 500 Mg Tablet, 500 MG PO DAILY 08/05/16 Cyanocobalamin (Vitamin B-12) (Vitamin B12) 5,000 Mcg Tab.rapdis, 5000 MCG PO DAILY 08/05/16 Pyridoxine HCl (Pyridoxine HCl) 50 Mg Tablet, 50 MG PO DAILY 08/05/16 Thiamine HCl (Vitamin B-1) 250 Mg Tablet, 250 MG PO DAILY 08/05/16 Insulin Glargine,Hum.rec.anlog (Lantus) 100 Unit/Ml Inj, 30 UNIT SQ HS 08/05/16 Trazodone HCl (Trazodone HCl) 50 Mg Tablet, 50 MG PO HS 08/05/16 Insulin Aspart (Novolog) 100 Unit/Ml Inj, 5-10 UNIT SQ TIDWM 08/05/16 Atorvastatin Calcium (Atorvastatin Calcium) 40 Mg Tablet, 40 MG PO HS 08/05/16 Aspirin (Aspir-Low) 81 Mg Tablet.dr, 81 MG PO HS 08/05/16 Atenolol (Atenolol) 25 Mg Tablet, 25 MG PO HS 08/05/16 Nitroglycerin (Nitrostat) 0.4 Mg Tablet, 0.4 MG PO Q5MIN Y for CHEST PAIN 08/05/16 Lisinopril (Lisinopril) 40 Mg Tablet, 40 MG PO HS 08/05/16 Allergies: Coded Allergies: No Known Allergies (Unverified , 08/06/16) Family History Family History: unkown Social History Smoking Status: Never smoker Substance Use Type: does not use Alcohol Intake: none Advance Directives: No DPOA for Healthcare Only Review of Systems Constitutional: REPORTS: appetite decrease, fatigue, weakness ENMT Balance: vertigo Mouth/Throat: DENIES: sore throat, sores Cardiovascular chest pain (right clavicle after fall), DENIES: murmur Pulmonary Respiratory: DENIES: cough, sputum GI Upper Abdomen: DENIES: nausea, vomiting Lower Abdomen: constipation Male: retention Musculoskeletal General: pain Neurological General: DENIES: headache, numbness, weakness Physical Exam General General Nourishment: well nourished, obese, apparent age Vital Signs Vital Signs Date Time Temp Pulse Resp B/P Pulse Ox O2 Delivery O2 Flow Rate FiO2 08/06/16 15:55 60 26 124/55 98 Nasal Cannula 2.00 08/06/16 08:00 97.1 Height (Feet): 5 Height (Inches): 8.00 Telemetry Rhythm: Sinus Rhythm Eyes Brief: FOUND: EOMI, PERRL, NOT FOUND: scleral icterus ENMT Brief: FOUND: mucosa moist, NOT FOUND: lesions Neck Brief: NOT FOUND: adenopathy Respiratory Brief: FOUND: clear all navarro, equal bilaterally, NOT FOUND: rales Cardiovascular (brief) Cardiac Brief: FOUND: regular rate, regular rhythm, NOT FOUND: murmur Abdomen (brief) Abdominal Brief: FOUND: soft, NOT FOUND: distended, hepatosplenomegaly, tender Lymphatic (brief) Lymphatic Brief: NOT FOUND: adenopathy Musculoskeletal (brief) Musculoskeletal Brief: FOUND: loss of motion (right arm in sling with tenderness over right shoulder), NOT FOUND: spasm, tenderness Integumentary (brief) Integumentary Brief: FOUND: dry, warm Neurologic (brief) Neurological Brief: FOUND: cranial 2-12 intact, motor (right arm in sling) Neurologic RN Documented GCS Eye Opening: Verbal: Motor: Total: Laboratory Item Value Date Time White Blood Count 9.0 T/MM3 08/06/16448 White Blood Count 10.6 T/MM3 08/05/16 2120 Hemoglobin 11.2 GM/DL L # 08/06/169 Hemoglobin 12.6 GM/DL L 08/05/162119 Platelet Count 233 T/MM3 08/05/162119 Platelet Count 198 T/MM3 08/06/16 0449 Calcium Level 13.1 MG/DL *H 08/05/16 2120 Calcium Level 12.1 MG/DL H 08/06/16 0449 Globulin 2.8 G/DL 08/05/16 2120 Total Bilirubin 1.60 MG/DL H 08/05/16 2120 Total Bilirubin 1.50 MG/DL H 08/06/16 0449 Alkaline Phosphatase 91 U/L 08/05/160 Creatinine 1.6 MG/DL H 08/05/160 Creatinine 1.4 MG/DL # 08/06/16 0449 Laboratory Tests Test 08/05/16 21:20 08/05/16 21:33 08/06/16 04:49 08/06/16 06:23 White Blood Count 10.6T/MM3 9.0T/MM3 Red Blood Count 4.22M/MM3 3.84M/MM3 Hemoglobin 12.6GM/DL 11.2GM/DL Hematocrit 37.4% 34.6% Mean Corpuscular Volume 88.6UM3 90.1UM3 Mean Corpuscular Hemoglobin 29.9UUG 29.2UUG Mean Corpuscular Hemoglobin Concent 33.7GM/DL 32.4GM/DL RDW Standard Deviation 40.2FL 40.7FL Platelet Count 233T/MM3 198T/MM3 Mean Platelet Volume 9.8UM3 10.3UM3 Immature Granulocyte % (Auto) 0.2% 0.1% Neutrophils (%) (Auto) 77.8% 71.7% Lymphocytes (%) (Auto) 11.7% 16.4% Monocytes (%) (Auto) 9.0% 9.9% Eosinophils (%) (Auto) 1.1% 1.8% Basophils (%) (Auto) 0.2% 0.1% Absolute Immature Granulocyte (auto 0.02T/MM3 0.01T/MM3 Absolute Neutrophils (auto) 8.3T/MM3 6.5T/MM3 Absolute Lymphocytes (auto) 1.3T/MM3 1.5T/MM3 Absolute Monocytes (auto) 1.0T/MM3 0.9T/MM3 Absolute Eosinophils (auto) 0.1T/MM3 0.2T/MM3 Absolute Basophils (auto) 0.0T/MM3 0.0T/MM3 Turbidity < 20 < 20 Sodium Level 139MEQ/L 138MEQ/L Potassium Level 4.5MEQ/L 4.3MEQ/L Chloride Level 99MEQ/L 104MEQ/L Carbon Dioxide Level 26MEQ/L 23MEQ/L Anion Gap 14MEQ/L 11MEQ/L Blood Urea Nitrogen 31.0MG/DL 27.0MG/DL Creatinine 1.6MG/DL 1.4MG/DL Glomerular Filtration Rate Calc 42 49 BUN/Creatinine Ratio 19RATIO 19RATIO Glucose Level 107MG/DL 103MG/DL Calculated Osmolality 275MOSM/KG 271MOSM/KG Calcium Level 13.1MG/DL 12.1MG/DL Total Bilirubin 1.60MG/DL 1.50MG/DL Icterus Index < 2 < 2 Aspartate Amino Transf (AST/SGOT) 20U/L 19U/L Alanine Aminotransferase (ALT/SGPT) 32U/L 29U/L Alkaline Phosphatase 91U/L 71U/L Troponin I < 0.012ng/ml Total Protein 7.2G/DL 5.9G/DL Albumin 4.4G/DL 3.7G/DL Globulin 2.8G/DL 2.2G/DL Albumin/Globulin Ratio 1.6RATIO 1.7RATIO Lipase 36U/L Thyroid Stimulating Hormone (TSH) 2.16MIU/L Chemistry Specimen Hemolysis < 15 < 15 Urine Collection Type Cleancatch-midstream Urine Color Yellow Urine Turbidity Clear Urine pH 5.5 Urine Specific [place] 1.025 Urine Protein Negative Urine Glucose (UA) Trace Urine Ketones Negative Urine Blood Negative Urine Nitrite Negative Urine Bilirubin Negative Urine Urobilinogen 0.2EU/DL Urine Leukocyte Esterase Negative Urinalysis Comment Microscopic not ind. Glucometer 90mg/dL Test 08/06/16 10:17 08/06/16 12:05 Prothromb Time International Ratio 1.12 Activated Partial Thromboplast Time 28.5SEC Glucometer 167mg/dL Impression/Recommendation Impression Renal mass with bone and lung lesions most consistent with metastatic tumor. Renal biopsy obtained today. Will await pathology. Will obtain skeletal survey to evaluate for lytic bone lesions 2. Falls. Worrisome for LABEL CUTTER event. Unable to do CT contrast because of renal insufficiency. This is currently improving with catheter. Feel MRI would be best appropriateness test of brain to evaluate for brain metastasis and consider doing this when creatinine improved. 3. Hypercalcemia. Calcium 13.0 on 08/05/16. Currently improved with hydration. Continue supportive care and consider Zometa. 4. Bilateral lung nodules consistent with metastatic disease 5. Probable pathologic fracture of right clavicle medial head. 6. Diabetes Recommendation Renal biopsy obtained today. Will obtain skeletal survey tomorrow. Consider MRI when patient able and creatinine improved. Continue fluids for hypercalcemia CHRIS FRANCOIS August 06, 2016 17:27
--- NOTE | 2016-08-06 18:47 | NUR ---
Shift summary. VSS. RA. A&O x 3, but is occasionally confused and has delayed response at times. Up w/ 1-2 and gait belt. Right shoulder in sling. NS 0.9% running at 125 mL/hr in left forearm IV. at bedside. Bruce in place. CT guided biopsy of right renal mass completed today. Bandaid over insertion site. Clean, dry and intact.
--- NOTE | 2016-08-06 19:48 | NUR ---
Charting reviewed. This RN has reviewed student Lydia Castrejon's charting for 08/06.
[2016-08-06] MEDS ORDERED: ASPIRIN *EC* 81mg TABLET PO SCH (22:00)
--- NOTE | 2016-08-06 22:12 | NUR ---
SCHEDULED MEDS EXPLAINED PURPOSE OF 3 HS MEDS, PT JUST STATES "NO" WHEN ASKED IF HE WILL TAKE THEM. EXPLAINED TO PRIMARY RN, LUIS ALBERTO TENORIO., CHARTED REFUSED. APOLOGIZED TO PATIENT FOR WAKING HIM AND THEN PT WENT BACK TO SLEEP.
[2016-08-07 00:03] VITALS: BP 135/63; PULSE 65; RESP 20; TEMP 98.5; O2SAT 92
[2016-08-07 05:02] LABS: HCT - HEMATOCRIT 32.5 % (41-53); HGB - HEMOGLOBIN 10.4 GM/DL (13.5-17.5); MEAN CORPUSCULAR HGB 28.7 UUG (26-34); MEAN CORPUSCULAR VOLUME 89.8 UM3 (80-100); MEAN PLATELET VOLUME 10.4 UM3 (9.4-12.4); RED BLOOD COUNT 3.62 M/MM3 (4.50-5.90); WBC - WHITE BLOOD COUNT 10.1 T/MM3 (4.5-11.0)
[2016-08-07 05:24] LABS: ANION GAP 7 MEQ/L (5-15); BUN/CREATININE RATIO 19 RATIO (6-26); CALCIUM 11.5 MG/DL (8.4-10.2); CHLORIDE 105 MEQ/L (98-107); CO2 - CARBON DIOXIDE 24 MEQ/L (22-30); CREATININE 1.3 MG/DL (0.8-1.5); GLOMERULAR FILTRATION RATE 53; GLUCOSE 125 MG/DL (75-110); LDH 313 U/L (313-618); MAGNESIUM 1.8 MG/DL (1.6-2.3); PHOSPHORUS 2.5 MG/DL (2.5-4.5); POTASSIUM 4.2 MEQ/L (3.6-5); SODIUM 136 MEQ/L (134-144)
[2016-08-07] MEDS: NORMAL SALINE 1,000 ML IV SCH ×3 (05:25→15:36)
[2016-08-07 06:22] LABS: BAND NEUTROPHILS # 0.4 T/MM3; BASOPHILS # (MANUAL) 0.1 T/MM3 (0-0.2); EOSINOPHILS # (MANUAL) 0.2 T/MM3 (0-0.5); LYMPHOCYTES # (MANUAL) 1.6 T/MM3 (1-4.8); MONOCYTES # (MANUAL) 0.7 T/MM3 (0-0.8); NEUTROPHILS #(MANUAL)-ABSOLUTE 7.1 T/MM3 (1.8-7.7); TOTAL CELLS COUNTED 100 %
[2016-08-07 07:31] VITALS: BP 133/68; PULSE 67; RESP 16; TEMP 97.2; O2SAT 90
[2016-08-07 07:36] VITALS: PULSE 67; RESP 16
--- NOTE | 2016-08-07 08:00 | NUR ---
RECEIVED REPORT PATIENT IS ALERT WITH CONFUSION. PATIENT IS OBSESSED WITH NUMBERS. OBSERVES THE IV PUMP AND SEES NUMBER CHANGES. HE CALLS TO ASK WHEN HIS 'NUMBER WILL SHOW UP'. PATIENT'S CONVERSATION DOES NOT MAKE SENSE. ITS NOT POSSIBLE TO REDIRECT OR REORIENT THE PATIENT AT THIS TIME. PATIENT HAS NS RUNNING AT 125M/HR PER LEFT FOREARM IV SITE. INDWELLING CATHETER TO DEPENDENT DRAINAGE BAG. RA. VSS. SCD's TO BLE.
[2016-08-07] MEDS: POLYETHYL.GLYCOL 3350 PACKET 17gm PO SCH ×2 (08:19→21:00)
--- NOTE | 2016-08-07 08:43 | NUR ---
SHIFT SUMMARY PT WAS A/O X3 AT THE START OF THE SHIFT. PT WAS MORE CONFUSED AT HS AND THROUGH THE NIGHT. REFUSED HIS MEDICATIONS, PT STATED HE WANTED TO SLEEP. RE-POSITION Q 2 HOURS WITH 2 ASSIST. MARIELLE SAUCEDO, URINE STRAW COLOR/CLOUDY NOTED. RIGHT ARM REMAINS IN A SLING. PT DENIES PAIN WHEN LAYING STILL. CALL LIGHT WITHIN REACH. BED ALARM ON.
--- NOTE | 2016-08-07 09:20 | DI ---
EXAM: OSSEOUS SURVEY 1 YR TO ADULT LOCATION OF DICTATION: [place] HISTORY: ITS.REASON: bone metastasis. Diffuse generalized pain particularly overlying the right shoulder and mid back. COMPARISON: No prior studies available for comparison. FINDINGS: Skull: There are a couple small radiolucent foci within the calvarium best visualized overlying the parietal region on lateral views. PA chest: There are no radiolucent/lytic lesions. The heart size is normal. The lungs are clear. Cervical spine: Mild spondylosis of the cervical spine without fracture or radiolucent/lytic lesions. Thoracic spine: Mild spondylosis of the thoracic spine without fracture or radiolucent/lytic lesions demonstrated. Lumbar spine: Mild spondylosis of the lumbar spine without evidence for fracture or radiolucent/lytic lesions. Moderate atherosclerotic disease of the abdominal aorta and iliac arteries. Bilateral femurs, tibias, and fibulas: No evidence for fracture or radiolucent/lytic lesions. Bilateral humerus, radius, and ulnas: There is a 3.2 x 1.5 cm ovoid lucent/lytic lesion suggest about the lateral aspect of the right humeral head. There are a few adjacent smaller radiolucencies demonstrated within the right humeral head and proximal right humeral metaphysis and diaphysis. There are also a few small subcentimeter radiolucencies within the proximal left humerus as well and likely within the mid to distal left clavicle. There is a ovoid lucency demonstrated within the distal right radius. The findings are highly suspicious for a lytic process/metastases. IMPRESSION: 1. There are several lucencies/lytic lesions demonstrated within the right and left upper extremities vertically involving the proximal bilateral humeral heads and distal right radius as well as the distal left clavicle. Findings are highly suspicious for a lytic process/metastases. 2. There are couple lucent/lytic lesions demonstrated within the calvarium also suspicious for a lytic process/metastases. .
[2016-08-07] MEDS: PANTOPRAZOLE 40 MG TABLET PO SCH (11:11)
[2016-08-07] MEDS: DEXAMETHASONE 4mg/ml - 1ml INJECTION IV SCH ×2 (11:16→17:40)
[2016-08-07] MEDS: BISACODYL 10 MG SUPPOSITORY RECTALLY SCH ×2 (13:10→17:40)
--- NOTE | 2016-08-07 13:34 | PNPDOC ---
Subjective Date DATE: 08/07/16 TIME: 13:19 Subjective The patient was seen in his room accompanied by his . His and stopping in the reardon before I went in and stated that her told her to leave. He had been refusing some of his medications. He did allow his to come back in and she was present during the entire exam. He states that he is not feeling very well. He feels constipated and has pain in the right shoulder. He has been eating and drinking well. He has a Bruce in place. He states he occasionally feels feverish. He denies any headache, chest pain or abdominal pain. He denies any nausea or vomiting. He has not had a bowel movement in several days. I went through all of his medications with him. He was worried about starting the proton pump inhibitor but eventually stated he wanted to go ahead and take it. I reviewed our findings so far and told him that we were starting Decadron/ steroid regarding the lesion seen in his bones. The proton pump inhibitor is to help with GI protection while on high-dose steroids. I discussed with him possible side effects of steroids and proton pump inhibitor. Objective Vital Signs Vital signs Vital Signs Date Time Temp Pulse Resp B/P Pulse Ox O2 Delivery O2 Flow Rate FiO2 08/07/16 07:36 67 16 08/07/16 07:31 97.2 133/68 90 Room Air 08/06/16 15:55 2.00 GEN-alert, no acute distress HEENT-sclera anicteric, oropharynx is moist NECK-supple CV-regular rate and rhythm CHEST-clear to auscultation bilaterally ABD-soft, nontender, nondistended with positive bowel sounds -Bruce in place with normal colored urine EXT-no edema NEURO-no focal deficits SKIN-warm and dry and without rashes Telemetry Rhythm: Sinus Rhythm Height (Feet): 5 Height (Inches): 8.00 Weight (Kilograms): 95.000 Laboratory Laboratory Item Value Date Time Albumin 3.0 G/DL L 08/07/16 0446 Calcium Level 11.5 MG/DL H 08/07/16 0446 Glucometer 138 mg/dL H 08/07/16 0539 Glucometer 195 mg/dL H 08/06/16 2110 Glucometer 160 mg/dL H 08/06/16 1825 Phosphorus Level 2.5 MG/DL 08/07/16 0446 Magnesium Level 1.8 MG/DL 08/07/16 0446 Laboratory Tests 08/05/16 21:20 08/06/16 04:49 08/07/16 04:46 Laboratory Tests 08/05/16 21:20 08/06/16 04:49 08/07/16 04:46 Radiology Bone survey IMPRESSION: 1. There are several lucencies/lytic lesions demonstrated within the right and left upper extremities vertically involving the proximal bilateral humeral heads and distal right radius as well as the distal left clavicle. Findings are highly suspicious for a lytic process/metastases. 2. There are couple lucent/lytic lesions demonstrated within the calvarium also suspicious for a lytic process/metastases. 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-kidney mass biopsied and results are pending Bone survey shows multiple lytic possible metastatic lesions Hypercalcemia in a patient with probable cancer with bony metastases who was also on calcium and vitamin D replacement-calcium improving on IV fluids and off of calcium and vitamin D Falls with generalized weakness 30 pound weight loss Right clavicular fracture -possibly pathologic Acute kidney injury-improving with IV fluids and Bruce catheter Urinary retention-continue with Bruce catheterization for now, hopefully will improve with treatment of constipation Constipation -had Dulcolax suppositories, check for rectal impaction, may need KUB Type 2 diabetes mellitus-blood sugars currently well controlled but IV steroids started today. Will start home Lantus and NovoLog Coronary artery disease-asymptomatic Hypertension-fair control on atenolol, lisinopril is on hold for acute kidney injury Hyperlipidemia-statin is currently on hold, consider restarting soon Plan Continue IV fluids, but at lower rate for acute kidney injury and hypercalcemia Monitor Accu-Cheks and restart home insulin Continue with Bruce catheterization for urinary retention MiraLAX for constipation, add Dulcolax suppositories, check for rectal impaction , possible KUB Repeat lab in the morning Continue atenolol. Lisinopril on hold PT and OT consult SCDs for DVT prophylaxis. Consider restarting aspirin and Lovenox soon Patient may take his own home meds Add proton pump inhibitor for stomach protection while on high-dose Decadron DVT Prophylaxis: SCD'S Code Status Full Code Hospital Course Summary Disclaimer The hospital course summary below is not to be considered part of the above Progress Note. Hospital Course Summary 08/06/2016-Dr. Bearden I have reviewed the H&P above, lab, med rec, and radiology. I agree with the H& P above along with my additions below. Chief complaint: Weakness, falls, right shoulder pain History of present illness: The patient is a pleasant 80-year-old male who has had weakness and several falls over the past couple of weeks. He also states that he has lost 32 pounds in the past 20 days. He states he's eating less because of pain in his "rear-end". He states that he feels like he can't have a bowel movement. After Bruce catheter was placed last night for urinary retention the pain in his "rear-end" resolved. He states most of his falls were because of carelessness. He denies any chest pains or lightheadedness. He denies any shortness of breath. He denies any nausea or vomiting. He denies any headache or abdominal pain. He denies any vision changes. He does complain of pain in his shoulder and points to the right clavicle as the area of his pain. He states he did fall and hit this area as well as hitting his head. Presents of review of systems is negative other than the above in history of present illness Past medical history is significant for diabetes, coronary artery disease, hyperlipidemia, hypertension Past surgical history significant for bypass Family history: No family history of cancer Social history the patient is and a lifelong nonsmoker Medications and allergies are reviewed Physical exam Patient is a very pleasant 80-year-old male in no acute distress. He is alert and oriented 3. HEENT reveals sclerae to be anicteric and oropharynx is moist. Neck is supple. Chest is clear to auscultation. Cardiovascular reveals a regular rate and rhythm without murmur. Abdomen is soft and nontender with positive bowel sounds. Extremities are free of edema. Motor strength is equal in all 4 extremities. Skin is warm and dry and without rashes. Labs this morning shows hemoglobin 11.2 down from 12.6, likely dilutional. White count and platelets are okay. Differential is essentially normal Comprehensive metabolic shows BUN down to 27 from 31, creatinine down to 1.4 from 1.6. Calcium improved from 13.1 down to 12.1. Bilirubin 1.5. Total protein 5.9. Globulin 2.2. TSH is normal at 2.16. INR and PTT are pending CT thoracic spine shows no bony metastases. CT lumbar spine shows lytic foci of skeletal metastasis in the ilium bilaterally. No definite spinal metastasis or acute appearing compression fracture. Cervical spine shows no acute traumatic abnormality of the cervical spine. Advanced degenerative disc disease and mild diffuse posterior facet adenopathy. No clear subluxation. Probable pathologic fracture of the medial right clavicle. Right Shoulder x-ray shows innumerable pulmonary metastasis. No definite skeletal metastasis to the right shoulder. No dislocation or bony destructive process. Right Humeral x-ray shows no acute osseous abnormality. CT chest, abdomen and pelvis Chest: There are innumerable pulmonary metastases diffusely spread throughout both lungs. There is no clear mediastinal or hilar adenopathy. No definite metastasis to the thoracic spine or included ribs. No pleural effusion. Heart size is normal. No pericardial effusion. CT ABDOMEN: There is a neck cephalic mass projecting posteriorly from the right kidney suspicious for a primary renal carcinoma. No definite hydronephrosis. There is mild bilateral perinephric stranding. There are some vascular calcifications centrally within both kidneys. No definite nonobstructing urinary calculus. The liver, spleen, pancreas, and adrenal glands are unremarkable in contour. The gallbladder is filled with hyperdense material suggesting gallstones. There is moderate calcification of the abdominal aorta without aneurysmal dilation. No definite retroperitoneal or mesenteric adenopathy. There is no retroperitoneal or mesenteric adenopathy. No definite bony metastasis to the lumbar spine. CT PELVIS: The urinary bladder is moderately distended. There is extensive colonic diverticulosis without evidence of diverticulitis. The prostate gland is heterogeneously enlarged. The seminal vesicles are not enlarged. There is no pelvic sidewall adenopathy. No free fluid. There are a few sclerotic bony foci and lytic foci suspicious for bony pelvic metastases. IMPRESSION: Innumerable pulmonary metastasis with a few osseous metastases and suspicious mass in the right kidney suspicious for primary renal carcinoma. This could also represent prostate carcinoma. Moderate urinary bladder distention which could suggest bladder outlet obstruction. Cholelithiasis without evidence for cholecystitis. Extensive distal colonic diverticulosis without evidence of diverticulitis. 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 Continue IV fluids. Calcium is improving. Continue to monitor with IV fluids and off of calcium and vitamin D. Dr. Gilliam, oncologist consulted. He recommends biopsy. I did call and talk with Dr. Warren, radiologist and he thinks the renal mass would be the safest to biopsy. Will biopsy greater than 12 hours after last heparin subcutaneous dose. We'll check INR and PTT prior. We'll consult orthopedics regarding right clavicular fracture. Monitor Accu-Cheks and give insulin as needed Continue with Bruce catheterization for urinary retention MiraLAX for constipation Repeat CBC, BMP and calcium in a.m. Continue atenolol and lisinopril PT and OT consult Stop aspirin and heparin for now. SCDs for DVT prophylaxis. Possibly restart aspirin and heparin postprocedure if doing well ZELALEM BEARDEN MD August 07, 2016 13:23
--- NOTE | 2016-08-07 13:57 | PNPDOC ---
EMILY STEIN NETWORK SUPPORT TECHNICIAN 08/07/16 1335: Subjective Date DATE: 08/07/16 TIME: 13:31 Reclining in hospital bed, alone in room. He is alert and oriented 2; answers questions appropriately. Complains of persistent right shoulder/upper upper arm discomfort intermittently and with movement. Complains of soreness/weakness in right leg. Denies back pain. Denies fever, chills, night sweats. Denies chest pain, no shortness of air. He is eating well, taking fluids well. Has indwelling Bruce catheter. Complains of constipation, states no BM for 5 days, "they've been giving me stuff today to help that. I don't want no more scans today...I have had a bunch of them...hope my insurance covers that." General: No fever, no night sweats Eyes: No redness, no pain, no diplopia ENT: No mouth sores, no trouble swallowing Cardiac: No chest pain no palpitations Pulmonary: No cough, no shortness of breath, no wheezing Abdomen: No pain, no nausea vomiting, no diarrhea positive constipation : Indwelling Bruce catheter Musculoskeletal: Sling for right arm, intermittent right shoulder pain. Soreness right upper leg Neurological: No headaches, no focal weakness Skin: No rash, no sores Psychiatric: No anxiety, no depression Objective Vital Signs Vital Signs 08/07/16 08/07/16 07:31 07:36 Temp 97.2 Pulse 67 67 Resp 16 16 B/P 133/68 Pulse Ox 90 O2 Delivery Room Air Height (Feet): 5 Height (Inches): 8.00 Weight (Kilograms): 95.000 General Alert, Orientated x 2, No Acute Distress Eyes (Brief) Eyes: FOUND: EOMI, NOT FOUND: scleral icterus ENMT (Brief) ENMT: FOUND: mucosa moist, NOT FOUND: lesions Neck (Brief) Neck: NOT FOUND: adenopathy, tenderness Respiratory (Brief) Respiratory: FOUND: clear all navarro, NOT FOUND: wheezes Cardiovascular (Brief) Cardiac: FOUND: regular rate, regular rhythm, NOT FOUND: pedal edema Abdomen (Brief) Abdominal: FOUND: BS normo active x4, soft, NOT FOUND: hepatosplenomegaly, tender Musculoskeletal (Brief) FOUND: loss of motion (mild decreased power right lower extremity. Normal passive range of motion), tenderness (mild tenderness with extension) Neurologic (Brief) FOUND: cranial 2-12 intact, NOT FOUND: motor Psychiatric (Brief) FOUND: alert, attentive, normal affect, oriented Laboratory Laboratory Tests Test 08/06/16 18:25 08/06/16 21:10 08/07/16 04:46 08/07/16 05:39 Glucometer 160mg/dL 195mg/dL 138mg/dL White Blood Count 10.1T/MM3 Red Blood Count 3.62M/MM3 Hemoglobin 10.4GM/DL Hematocrit 32.5% Mean Corpuscular Volume 89.8UM3 Mean Corpuscular Hemoglobin 28.7UUG Mean Corpuscular Hemoglobin Concent 32.0GM/DL RDW Standard Deviation 40.4FL Platelet Count 186T/MM3 Mean Platelet Volume 10.4UM3 Neutrophils % (Manual) 70.0% Band Neutrophils % 4.0% Lymphocytes % (Manual) 16.0% Monocytes % (Manual) 7.0% Eosinophils % (Manual) 2.0% Basophils % (Manual) 1.0% Absolute Neutrophils (Manual) 7.1T/MM3 Band Neutrophils # 0.4T/MM3 Lymphocytes # (Manual) 1.6T/MM3 Monocytes # (Manual) 0.7T/MM3 Eosinophils # (Manual) 0.2T/MM3 Basophils # (Manual) 0.1T/MM3 Red Cell Morphology Comment Normal Turbidity < 20 Sodium Level 136MEQ/L Potassium Level 4.2MEQ/L Chloride Level 105MEQ/L Carbon Dioxide Level 24MEQ/L Anion Gap 7MEQ/L Blood Urea Nitrogen 25.0MG/DL Creatinine 1.3MG/DL Glomerular Filtration Rate Calc 53 BUN/Creatinine Ratio 19RATIO Glucose Level 125MG/DL Calculated Osmolality 267MOSM/KG Calcium Level 11.5MG/DL Phosphorus Level 2.5MG/DL Magnesium Level 1.8MG/DL Icterus Index < 2 Lactate Dehydrogenase 313U/L Albumin 3.0G/DL Chemistry Specimen Hemolysis 19 Radiology Date of exam 08/07/16 Osseous (skeletal) survey Impression: 1. There are several lucencies/lytic lesions demonstrated within the right and left upper extremities vertically involving the proximal bilateral humeral heads and distal right radius as well as the distal left clavicle. Findings are highly suspicious for lytic process/metastasis 2. There are a couple lucent/lytic lesions demonstrated within the calvarium also suspicious for lytic process/metastasis Assessment & Plan Assessment 1. Renal mass with bone and lung lesions most consistent with metastatic tumor. Renal biopsy obtained 08/06/16. Will await pathology. Imaging reviewed with radiologist today, possible stenosis of lumbar spine. Plan MRI of lumbar spine, to include T10. Will defer scheduling MRI for now, secondary to hypercalcemia ( slowly improving) and patient concern with multiple scans. Reassured patient he has indications/medical reasons for requiring these multiple tests; Medicare will cover these tests. 2. Falls. Worrisome for [employer]RE[employer]PA[employer] HEL[employer] event. Unable to do CT contrast because of renal insufficiency. This is currently improving with catheter. Feel MRI would be best appropriateness test of brain to evaluate for brain metastasis and consider doing this when creatinine improved. 3. Hypercalcemia. Calcium 13.0 on 08/05/16. Continues to improve with hydration; calcium 11.5 today. Continue supportive care and consider Zometa. 4. Bilateral lung nodules consistent with metastatic disease 5. Probable pathologic fracture of right clavicle medial head; being followed by orthopedics. 6. Diabetes. We added dexamethasone, discussed with Dr. Cantu. Plan/Intensity of Service Dr. Mcneal discussed preliminary findings with patient; do not have definitive diagnosis until have results of pathology; await pathology results for definitive plan of care and treatment options. Because of potential spinal stenosis and multiple lytic lesions, will add dexamethasone 4 mg IV every 8 hours; discussed with Dr. Bearden. Continue supportive care. Being followed by orthopedics. Code Status Full Code Hospital Course Summary Disclaimer The visit summary below is not to be considered part of the above Progress Note. LOYD MCNEAL MD 08/08/16 0819: Assessment & Plan Plan/Intensity of Service The patient is seen and examined by me, I discussed and personally formulated the plan of care. I reviewed and agree with the above note. EMILY STEIN APRN August 07, 2016 13:35 LOYD MCNEAL MD August 08, 2016 08:19
[2016-08-07] MEDS: HYDROCODONE/APAP 5 mg/325 mg TABLET PO PRN (13:58)
[2016-08-07 15:27] VITALS: BP 137/65; PULSE 60; RESP 20; TEMP 97.9; O2SAT 94
--- NOTE | 2016-08-07 16:10 | NUR ---
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 Patient states his will be visiting tomorrow,so spring internship will attempt to speak with and patient about diabetes management then. RD available @ [phone] Addendum: 08/07/16 at [address] Student charting reviewed by Page Makeup System Operator.
--- NOTE | 2016-08-07 17:25 | NUR ---
BGM 238 NO ADDITIONAL INSULIN ADMIN. PATIENT WAS CORRECTION EATING DINNER WHEN BGM WAS CHECKED
[2016-08-07] MEDS ORDERED: INSULIN ASPART 100 UNIT/ML SQ SCH (17:30)
--- NOTE | 2016-08-07 18:56 | NUR ---
STATUS PATIENT HAS REMAINED CONFUSED ALL DAY. PICKS AN ARGUMENT OVER NOTHING AND ARGUES WITH HIS . SEND OUT OF THE ROOM. BUT DOES NOT REMEMBER WHY THE LEFT. DOES NOT FOLLOW INSTRUCTIONS WELL. PATIENT DOES NOT COMPREHEND THE USE OF THE CALL BUTTON. CONTINUES TO TALK ABOUT NUMBERS.
[2016-08-07] MEDS: ATENOLOL 25 MG PO SCH (21:01)
[2016-08-07] MEDS: INSULIN GLARGINE 100 UNIT/ML SQ SCH (21:03)
[2016-08-07] MEDS: INSULIN ASPART 100 UNIT/ML SQ PRN (21:04)
[2016-08-08] MEDS: HYDROCODONE/APAP 5 mg/325 mg TABLET PO PRN (00:05)
[2016-08-08] MEDS: ZOLPIDEM 5 MG TABLET PO PRN ×2 (00:06→21:08)
[2016-08-08] MEDS: DEXAMETHASONE 4mg/ml - 1ml INJECTION IV SCH ×3 (00:06→17:42)
[2016-08-08 00:37] VITALS: BP 153/72; PULSE 60; RESP 18; TEMP 96.8; O2SAT 94
[2016-08-08] MEDS: BISACODYL 10 MG SUPPOSITORY RECTALLY SCH ×4 (00:45→17:44)
--- NOTE | 2016-08-08 04:23 | NUR ---
SUMMARY PT IS A&O TO SELF AND PLACE. PT TRIES TO HIDE HIS CONFUSION, BUT IT IS EVIDENT WITH SIMPLE CONVERSATIONS. STAND BY AT ASSIST OF ONE FOR AMBULATION. PT HAD ONE MODERATE SIZE STOOL AFTER EVENING MEDS, THEREFORE DULCOLAX SUPP WAS HELD.
[2016-08-08] MEDS: NORMAL SALINE 1,000 ML IV SCH (05:05)
[2016-08-08 05:49] LABS: MEAN CORPUSCULAR HGB 29.6 UUG (26-34); MEAN CORPUSCULAR HGB CONC(MCHC 33.3 GM/DL (31-37); MEAN CORPUSCULAR VOLUME 88.9 UM3 (80-100); MEAN PLATELET VOLUME 10.6 UM3 (9.4-12.4); RED BLOOD COUNT 3.71 M/MM3 (4.50-5.90); WBC - WHITE BLOOD COUNT 10.8 T/MM3 (4.5-11.0)
[2016-08-08 06:02] LABS: ALBUMIN 3.4 G/DL (3.5-5.0); ANION GAP 10 MEQ/L (5-15); BUN/CREATININE RATIO 23 RATIO (6-26); CALCIUM 11.2 MG/DL (8.4-10.2); CHLORIDE 103 MEQ/L (98-107); CO2 - CARBON DIOXIDE 22 MEQ/L (22-30); CREATININE 1.2 MG/DL (0.8-1.5); GLOMERULAR FILTRATION RATE 59; GLUCOSE 203 MG/DL (75-110); PHOSPHORUS 2.7 MG/DL (2.5-4.5); POTASSIUM 4.4 MEQ/L (3.6-5); SODIUM 135 MEQ/L (134-144)
[2016-08-08] MEDS: PANTOPRAZOLE 40 MG TABLET PO SCH (06:07)
[2016-08-08 06:28] LABS: BAND NEUTROPHILS # 1.1 T/MM3; LYMPHOCYTES # (MANUAL) 0.5 T/MM3 (1-4.8); MONOCYTES # (MANUAL) 0.2 T/MM3 (0-0.8); TOTAL CELLS COUNTED 100 %
[2016-08-08] MEDS: INSULIN ASPART 100 UNIT/ML SQ PRN ×3 (06:53→21:37)
[2016-08-08 07:41] VITALS: BP 142/65; PULSE 54; RESP 16; TEMP 95.3; O2SAT 94
[2016-08-08] MEDS: INSULIN ASPART 100 UNIT/ML SQ SCH ×3 (08:00→17:43)
[2016-08-08] MEDS: POLYETHYL.GLYCOL 3350 PACKET 17gm PO SCH ×2 (08:37→21:07)
--- NOTE | 2016-08-08 10:23 | NUR ---
DM screen F/U Diet: Cardiac CC 1999 Due to medical condition, DM screen will not be addressed at this time. Addendum: 08/08/16 at [address] Above note approved by
--- NOTE | 2016-08-08 10:38 | NUR ---
CM CM IN TO VISIT PT AND . PT AND DO NOT HAVE QUESTIONS FOR ME AT THIS TIME AND ARE AWARE TO CALL CM SHOULD NEEDS ARISE.
--- NOTE | 2016-08-08 10:41 | PNPDOC ---
Subjective Date DATE: 08/08/16 TIME: 10:25 Talkative, questions answered. Confusion about test. Thought he had an MRI yesterday. present in room. Discussed finding of renal cell carcinoma on biopsy. Review of systems: Gen.: Negative for fever or chills, malaise Eyes: Negative eye discharge, eye pain ENT: Negative for nosebleeds, mouth sores Lymph: Negative enlarged lymph nodes, no night sweats Respiratory: Negative for cough, hemoptysis, Cardiac: Negative for chest pain, palpitations, or swelling GI: Negative for nausea, negative for vomiting, negative for diarrhea Genitourinary: No urgency, no dysuria, no hematuria, Bruce catheter in place Musculoskeletal: Positive for weakness, positive for joint pain right clavicle Neurologic: Negative for headache, negative for focal weakness, negative for numbness Objective Vital Signs Vital Signs 08/08/16 08/08/16 00:37 07:41 Temp 96.8 95.3 Pulse 60 54 Resp 18 16 B/P 153/72 142/65 Pulse Ox 94 94 O2 Delivery Room Air Room Air Height (Feet): 5 Height (Inches): 8.00 Weight (Kilograms): 95.700 General Alert, No Acute Distress Eyes (Brief) Eyes: FOUND: EOMI, PERRL, NOT FOUND: scleral icterus ENMT (Brief) ENMT: FOUND: mucosa moist, NOT FOUND: lesions Neck (Brief) Neck: NOT FOUND: adenopathy, tenderness Respiratory (Brief) Respiratory: FOUND: clear all navarro, equal bilaterally, NOT FOUND: wheezes Cardiovascular (Brief) Cardiac: FOUND: regular rate, regular rhythm, NOT FOUND: pedal edema Abdomen (Brief) Abdominal: FOUND: BS normo active x4, soft, NOT FOUND: distended, hepatosplenomegaly, tender Extremities (Brief) Extremity : Side: Right Extremity: arm (in sling) Musculoskeletal (Brief) FOUND: loss of motion ( leg strength fairly equal today), tenderness (mild tenderness with extension right arm) Neurologic (Brief) FOUND: cranial 2-12 intact, motor (normal strength on dorsiflexion and plantarflexion. Able to extend both legs adequately while sitting) Psychiatric (Brief) FOUND: alert, NOT FOUND: attentive (confused however knows that Walker townsendets present. Thinks he had an MRI yesterday.), normal affect, oriented Laboratory Item Value Date Time Creatinine 1.2 MG/DL 08/08/16437 Glomerular Filtration Rate Calc 59 08/08/168 Calcium Level 11.2 MG/DL H 08/08/16437 Laboratory Tests Test 08/07/16 11:04 08/07/16 17:19 08/07/16 21:12 08/08/16 04:38 Glucometer 170mg/dL 238mg/dL 272mg/dL White Blood Count 10.8T/MM3 Red Blood Count 3.71M/MM3 Hemoglobin 11.0GM/DL Hematocrit 33.0% Mean Corpuscular Volume 88.9UM3 Mean Corpuscular Hemoglobin 29.6UUG Mean Corpuscular Hemoglobin Concent 33.3GM/DL RDW Standard Deviation 39.8FL Platelet Count 195T/MM3 Mean Platelet Volume 10.6UM3 Immature Granulocyte % (Auto) % Neutrophils (%) (Auto) % Lymphocytes (%) (Auto) % Monocytes (%) (Auto) % Eosinophils (%) (Auto) % Basophils (%) (Auto) % Absolute Immature Granulocyte (auto T/MM3 Absolute Neutrophils (auto) T/MM3 Absolute Lymphocytes (auto) T/MM3 Absolute Monocytes (auto) T/MM3 Absolute Eosinophils (auto) T/MM3 Absolute Basophils (auto) T/MM3 Neutrophils % (Manual) 83.0% Band Neutrophils % 10.0% Lymphocytes % (Manual) 5.0% Monocytes % (Manual) 2.0% Absolute Neutrophils (Manual) 9.0T/MM3 Band Neutrophils # 1.1T/MM3 Lymphocytes # (Manual) 0.5T/MM3 Monocytes # (Manual) 0.2T/MM3 Red Cell Morphology Comment Normal Turbidity < 20 Sodium Level 135MEQ/L Potassium Level 4.4MEQ/L Chloride Level 103MEQ/L Carbon Dioxide Level 22MEQ/L Anion Gap 10MEQ/L Blood Urea Nitrogen 27.0MG/DL Creatinine 1.2MG/DL Glomerular Filtration Rate Calc 59 BUN/Creatinine Ratio 23RATIO Glucose Level 203MG/DL Calculated Osmolality 271MOSM/KG Calcium Level 11.2MG/DL Phosphorus Level 2.7MG/DL Icterus Index < 2 Albumin 3.4G/DL Chemistry Specimen Hemolysis < [address] Mosqueda. Needle biopsy of the kidney compatible with renal cell carcinoma. Assessment & Plan Assessment 1. 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 Confusion worrisome for brain metastasis. Will obtain MRI of brain. Right leg weakness that dexamethasone was started on. Will obtain MRI of lumbar spine. Discussed disease and possible treatments with patient and . Will obtain staging and see if areas need radiation therapy and then discuss potential option of targeted therapy either Torisel versus Votrient. [facility] prognostic group looks at 5 factors. Karnofsky performance status less than 80% , LDH greater than 1-1/2 times normal, corrected serum calcium greater than 10, hemoglobin concentration of the lower limits of normal, and absence of nephrectomy. The patient has decreased performance status, elevated calcium, low hemoglobin, and absence of nephrectomy. This would be considered high risk disease. Up-to-date information about choice of therapy: No prior systemic therapy For patients who are not candidates for IL-2 ( including those patients without access to IL-2 therapy and those who decline treatment), we recommend molecularly targeted therapy. (See "Overview of the treatment of renal cell carcinoma", section on 'Molecularly targeted therapy'.) -The primary targeted approaches in this first-line setting include pazopanib, sunitinib, and bevacizumab plus interferon-elizabeth (IFNa) (table 2). There are only limited data comparing these agents. -Our preference for initial therapy of good- or intermediate-risk patients is for either pazopanib or sunitinib. These two agents had similar efficacy when compared in a randomized trial, although pazopanib was associated with less toxicity, including fatigue. (See 'Risk stratification' above and 'Pazopanib versus sunitinib' below.) -For patients with a poor prognosis, we prefer sunitinib, as this was shown to be superior to mTOR inhibitors in such patients in the RECORD 3 trial [3]. Temsirolimus could also be an option, but its use should be limited to patients with poor-risk features and tumors displaying evidence of mutations in the PI3K pathway [4]. -Cabozantinib had an improved progression-free survival and a higher objective response rate compared with sunitinib in a randomized phase II trial in patients with intermediate- or high-risk disease, but it is not yet approved for use in patients who have not received prior anti-angiogenic therapy. Based on above Sutent would be the best therapy. Could consider Temsirolimus if mutations are present in PI 3K pathway. Neither one of these would be started if he needs radiation therapy for brain metastasis or symptomatic bone metastasis. 2. Falls. Worrisome for ACID TESTER event. Unable to do CT contrast because of renal insufficiency. This is currently improving with catheter. Feel MRI would be best appropriateness test of brain to evaluate for brain metastasis and consider doing this when creatinine improved. We will order MRI today. 3. Hypercalcemia. Calcium 13.0 on 08/05/16. Continues to improve with hydration; calcium 11.5 on 08/07/16. Improved to 11.2 on 08/08/16.. Continue supportive care and consider Zometa. 4. Bilateral lung nodules consistent with metastatic disease 5. Probable pathologic fracture of right clavicle medial head; being followed by orthopedics. 6. Diabetes. Added dexamethasone on 08/07/16.. Plan/Intensity of Service MRI brain MRI lumbar spine Discussion regarding completion of staging and therapy based on above. Options include hospice, Sutent, radiation therapy for symptomatic disease. Patient has [facility] benefits and may be of benefit to look at using VA services. Code Status Full Code Hospital Course Summary Disclaimer The visit summary below is not to be considered part of the above Progress Note. Hospital Course Summary 08/06/2016-Dr. Bearden I have reviewed the H&P above, lab, med rec, and radiology. I agree with the H& P above along with my additions below. Chief complaint: Weakness, falls, right shoulder pain History of present illness: The patient is a pleasant 80-year-old male who has had weakness and several falls over the past couple of weeks. He also states that he has lost 32 pounds in the past 20 days. He states he's eating less because of pain in his "rear-end". He states that he feels like he can't have a bowel movement. After Bruce catheter was placed last night for urinary retention the pain in his "rear-end" resolved. He states most of his falls were because of carelessness. He denies any chest pains or lightheadedness. He denies any shortness of breath. He denies any nausea or vomiting. He denies any headache or abdominal pain. He denies any vision changes. He does complain of pain in his shoulder and points to the right clavicle as the area of his pain. He states he did fall and hit this area as well as hitting his head. Presents of review of systems is negative other than the above in history of present illness Past medical history is significant for diabetes, coronary artery disease, hyperlipidemia, hypertension Past surgical history significant for bypass Family history: No family history of cancer Social history the patient is and a lifelong nonsmoker Medications and allergies are reviewed Physical exam Patient is a very pleasant 80-year-old male in no acute distress. He is alert and oriented 3. HEENT reveals sclerae to be anicteric and oropharynx is moist. Neck is supple. Chest is clear to auscultation. Cardiovascular reveals a regular rate and rhythm without murmur. Abdomen is soft and nontender with positive bowel sounds. Extremities are free of edema. Motor strength is equal in all 4 extremities. Skin is warm and dry and without rashes. Labs this morning shows hemoglobin 11.2 down from 12.6, likely dilutional. White count and platelets are okay. Differential is essentially normal Comprehensive metabolic shows BUN down to 27 from 31, creatinine down to 1.4 from 1.6. Calcium improved from 13.1 down to 12.1. Bilirubin 1.5. Total protein 5.9. Globulin 2.2. TSH is normal at 2.16. INR and PTT are pending CT thoracic spine shows no bony metastases. CT lumbar spine shows lytic foci of skeletal metastasis in the ilium bilaterally. No definite spinal metastasis or acute appearing compression fracture. Cervical spine shows no acute traumatic abnormality of the cervical spine. Advanced degenerative disc disease and mild diffuse posterior facet adenopathy. No clear subluxation. Probable pathologic fracture of the medial right clavicle. Right Shoulder x-ray shows innumerable pulmonary metastasis. No definite skeletal metastasis to the right shoulder. No dislocation or bony destructive process. Right Humeral x-ray shows no acute osseous abnormality. CT chest, abdomen and pelvis Chest: There are innumerable pulmonary metastases diffusely spread throughout both lungs. There is no clear mediastinal or hilar adenopathy. No definite metastasis to the thoracic spine or included ribs. No pleural effusion. Heart size is normal. No pericardial effusion. CT ABDOMEN: There is a neck cephalic mass projecting posteriorly from the right kidney suspicious for a primary renal carcinoma. No definite hydronephrosis. There is mild bilateral perinephric stranding. There are some vascular calcifications centrally within both kidneys. No definite nonobstructing urinary calculus. The liver, spleen, pancreas, and adrenal glands are unremarkable in contour. The gallbladder is filled with hyperdense material suggesting gallstones. There is moderate calcification of the abdominal aorta without aneurysmal dilation. No definite retroperitoneal or mesenteric adenopathy. There is no retroperitoneal or mesenteric adenopathy. No definite bony metastasis to the lumbar spine. CT PELVIS: The urinary bladder is moderately distended. There is extensive colonic diverticulosis without evidence of diverticulitis. The prostate gland is heterogeneously enlarged. The seminal vesicles are not enlarged. There is no pelvic sidewall adenopathy. No free fluid. There are a few sclerotic bony foci and lytic foci suspicious for bony pelvic metastases. IMPRESSION: Innumerable pulmonary metastasis with a few osseous metastases and suspicious mass in the right kidney suspicious for primary renal carcinoma. This could also represent prostate carcinoma. Moderate urinary bladder distention which could suggest bladder outlet obstruction. Cholelithiasis without evidence for cholecystitis. Extensive distal colonic diverticulosis without evidence of diverticulitis. 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 Continue IV fluids. Calcium is improving. Continue to monitor with IV fluids and off of calcium and vitamin D. Dr. Gilliam, oncologist consulted. He recommends biopsy. I did call and talk with Dr. Warren, radiologist and he thinks the renal mass would be the safest to biopsy. Will biopsy greater than 12 hours after last heparin subcutaneous dose. We'll check INR and PTT prior. We'll consult orthopedics regarding right clavicular fracture. Monitor Accu-Cheks and give insulin as needed Continue with Bruce catheterization for urinary retention MiraLAX for constipation Repeat CBC, BMP and calcium in a.m. Continue atenolol and lisinopril PT and OT consult Stop aspirin and heparin for now. SCDs for DVT prophylaxis. Possibly restart aspirin and heparin postprocedure if doing well CHRIS GILLIAM August 08, 2016 10:28
--- NOTE | 2016-08-08 12:26 | NUR ---
Status Patient confused. States he hasn't had this good of a morning for a few days. Up to chair with assist of 2. Good appetite. Arm continues on a sling. Breathing comfortably on RA. BGM elevated this am, sliding scale insulin given.
[2016-08-08] MEDS ORDERED: GADOBUTROL 10mMol/10ml INJECTION IV ONE (13:19)
[2016-08-08] MEDS ORDERED: SALINE FLUSH 10ml SYRINGE ONE (13:19)
[2016-08-08 16:00] VITALS: BP 142/77; PULSE 66; RESP 18; TEMP 96.3; O2SAT 97
[2016-08-08 16:32] VITALS: BP 145/67; PULSE 61; RESP 16; O2SAT 93
--- NOTE | 2016-08-08 16:44 | PNPDOC ---
Subjective Date DATE: 08/08/16 TIME: 16:29 Subjective The patient states that he's feeling okay today. He states he feels strong enough to go home. He states he is eating well. He states he had good bowel movements yesterday and is no longer constipated. He denies any shortness of breath. His only pain is in his right shoulder. He has a lot of questions about his cancer diagnosis and questions about life expectancy. He states "if I only have 3 months left to live I want to go home." He is also concerned about the expense of treatment. He thinks he does have [place] benefits and this might be an option for him. I will ask case management to look into this for him. Objective Vital Signs Vital signs Vital Signs Date Time Temp Pulse Resp B/P Pulse Ox O2 Delivery O2 Flow Rate FiO2 08/08/16 07:41 95.3 54 16 142/65 94 Room Air 08/06/16 15:55 2.00 GEN-alert, no acute distress HEENT-sclera anicteric, oropharynx is moist NECK-supple CV-regular rate and rhythm CHEST-clear to auscultation bilaterally ABD-soft and nontender with positive bowel sounds -Bruce in place with good urine output EXT-no edema NEURO-mild confusion, no focal deficits SKIN-warm and dry and without rashes Telemetry Rhythm: Sinus Rhythm Height (Feet): 5 Height (Inches): 8.00 Weight (Kilograms): 95.700 Laboratory Laboratory Laboratory Tests 08/07/16 04:46 08/08/16 04:38 Laboratory Tests 08/07/16 04:46 08/08/16 04:38 Assessment & Plan Assessment 08/08/2016 Impression Pathology from kidney biopsy does show renal cell carcinoma. Bone survey shows multiple lytic possible metastatic lesions Hypercalcemia in a patient with probable cancer with bony metastases who was also on calcium and vitamin D replacement-calcium improving daily on IV fluids and off of calcium and vitamin D Falls with generalized weakness-PT and OT following, strength is slowly improving 30 pound weight loss Right clavicular fracture -possibly pathologic Acute kidney injury-improving daily with IV fluids and Bruce catheter Urinary retention-continue with Bruce catheterization for now Constipation -resolved post Dulcolax and MiraLAX Type 2 diabetes mellitus-blood sugars were well controlled off of insulin prior to Decadron. Decadron was then started and blood sugars are increased despite restarting Lantus last night. Coronary artery disease-asymptomatic Hypertension-fair control on atenolol, lisinopril is on hold for acute kidney injury Hyperlipidemia-statin is currently on hold, consider restarting soon Plan Continue IV fluids for AK I and hypercalcemia Lantus 30 units restarted last night. NovoLog insulin 5 units 3 times a day with meals started yesterday. Blood sugars are increased after initiation of Decadron. Will increase NovoLog to 10 units 3 times a day with meals. Continue sliding scale insulin. May need to adjust insulin further tomorrow. Continue with Bruce catheterization for urinary retention-start bladder retraining-possibly DC Bruce tomorrow Repeat lab in the morning Continue atenolol. Lisinopril on hold Continue PT and OT. We'll need to get updated recommendations from them tomorrow on whether or not he is safe for discharge to home. Results of pathology showing renal cell carcinoma discussed with Dr. Gilliam. MRI brain and lumbar spine at been ordered. Treatment recommendations will be determined after MRI results are back. Greater than 35 minutes of time spent seeing and evaluating the patient, determining care plan, reviewing the chart, and talking with consultants. DVT Prophylaxis: SCD'S Code Status Full Code Hospital Course Summary Disclaimer The hospital course summary below is not to be considered part of the above Progress Note. Hospital Course Summary 08/06/2016-Dr. Bearden I have reviewed the H&P above, lab, med rec, and radiology. I agree with the H& P above along with my additions below. Chief complaint: Weakness, falls, right shoulder pain History of present illness: The patient is a pleasant 80-year-old male who has had weakness and several falls over the past couple of weeks. He also states that he has lost 32 pounds in the past 20 days. He states he's eating less because of pain in his "rear-end". He states that he feels like he can't have a bowel movement. After Bruce catheter was placed last night for urinary retention the pain in his "rear-end" resolved. He states most of his falls were because of carelessness. He denies any chest pains or lightheadedness. He denies any shortness of breath. He denies any nausea or vomiting. He denies any headache or abdominal pain. He denies any vision changes. He does complain of pain in his shoulder and points to the right clavicle as the area of his pain. He states he did fall and hit this area as well as hitting his head. Presents of review of systems is negative other than the above in history of present illness Past medical history is significant for diabetes, coronary artery disease, hyperlipidemia, hypertension Past surgical history significant for bypass Family history: No family history of cancer Social history the patient is and a lifelong nonsmoker Medications and allergies are reviewed Physical exam Patient is a very pleasant 80-year-old male in no acute distress. He is alert and oriented 3. HEENT reveals sclerae to be anicteric and oropharynx is moist. Neck is supple. Chest is clear to auscultation. Cardiovascular reveals a regular rate and rhythm without murmur. Abdomen is soft and nontender with positive bowel sounds. Extremities are free of edema. Motor strength is equal in all 4 extremities. Skin is warm and dry and without rashes. Labs this morning shows hemoglobin 11.2 down from 12.6, likely dilutional. White count and platelets are okay. Differential is essentially normal Comprehensive metabolic shows BUN down to 27 from 31, creatinine down to 1.4 from 1.6. Calcium improved from 13.1 down to 12.1. Bilirubin 1.5. Total protein 5.9. Globulin 2.2. TSH is normal at 2.16. INR and PTT are pending CT thoracic spine shows no bony metastases. CT lumbar spine shows lytic foci of skeletal metastasis in the ilium bilaterally. No definite spinal metastasis or acute appearing compression fracture. Cervical spine shows no acute traumatic abnormality of the cervical spine. Advanced degenerative disc disease and mild diffuse posterior facet adenopathy. No clear subluxation. Probable pathologic fracture of the medial right clavicle. Right Shoulder x-ray shows innumerable pulmonary metastasis. No definite skeletal metastasis to the right shoulder. No dislocation or bony destructive process. Right Humeral x-ray shows no acute osseous abnormality. CT chest, abdomen and pelvis Chest: There are innumerable pulmonary metastases diffusely spread throughout both lungs. There is no clear mediastinal or hilar adenopathy. No definite metastasis to the thoracic spine or included ribs. No pleural effusion. Heart size is normal. No pericardial effusion. CT ABDOMEN: There is a neck cephalic mass projecting posteriorly from the right kidney suspicious for a primary renal carcinoma. No definite hydronephrosis. There is mild bilateral perinephric stranding. There are some vascular calcifications centrally within both kidneys. No definite nonobstructing urinary calculus. The liver, spleen, pancreas, and adrenal glands are unremarkable in contour. The gallbladder is filled with hyperdense material suggesting gallstones. There is moderate calcification of the abdominal aorta without aneurysmal dilation. No definite retroperitoneal or mesenteric adenopathy. There is no retroperitoneal or mesenteric adenopathy. No definite bony metastasis to the lumbar spine. CT PELVIS: The urinary bladder is moderately distended. There is extensive colonic diverticulosis without evidence of diverticulitis. The prostate gland is heterogeneously enlarged. The seminal vesicles are not enlarged. There is no pelvic sidewall adenopathy. No free fluid. There are a few sclerotic bony foci and lytic foci suspicious for bony pelvic metastases. IMPRESSION: Innumerable pulmonary metastasis with a few osseous metastases and suspicious mass in the right kidney suspicious for primary renal carcinoma. This could also represent prostate carcinoma. Moderate urinary bladder distention which could suggest bladder outlet obstruction. Cholelithiasis without evidence for cholecystitis. Extensive distal colonic diverticulosis without evidence of diverticulitis. 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 Continue IV fluids. Calcium is improving. Continue to monitor with IV fluids and off of calcium and vitamin D. Dr. Gilliam, oncologist consulted. He recommends biopsy. I did call and talk with Dr. Warren, radiologist and he thinks the renal mass would be the safest to biopsy. Will biopsy greater than 12 hours after last heparin subcutaneous dose. We'll check INR and PTT prior. We'll consult orthopedics regarding right clavicular fracture. Monitor Accu-Cheks and give insulin as needed Continue with Bruce catheterization for urinary retention MiraLAX for constipation Repeat CBC, BMP and calcium in a.m. Continue atenolol and lisinopril PT and OT consult Stop aspirin and heparin for now. SCDs for DVT prophylaxis. 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-kidney mass biopsied and results are pending Bone survey shows multiple lytic possible metastatic lesions Hypercalcemia in a patient with probable cancer with bony metastases who was also on calcium and vitamin D replacement-calcium improving on IV fluids and off of calcium and vitamin D Falls with generalized weakness 30 pound weight loss Right clavicular fracture -possibly pathologic Acute kidney injury-improving with IV fluids and Bruce catheter Urinary retention-continue with Bruce catheterization for now, hopefully will improve with treatment of constipation Constipation -had Dulcolax suppositories, check for rectal impaction, may need KUB Type 2 diabetes mellitus-blood sugars currently well controlled but IV steroids started today. Will start home Lantus and NovoLog Coronary artery disease-asymptomatic Hypertension-fair control on atenolol, lisinopril is on hold for acute kidney injury Hyperlipidemia-statin is currently on hold, consider restarting soon Plan Continue IV fluids, but at lower rate for acute kidney injury and hypercalcemia Monitor Accu-Cheks and restart home insulin Continue with Bruce catheterization for urinary retention MiraLAX for constipation, add Dulcolax suppositories, check for rectal impaction , possible KUB Repeat lab in the morning Continue atenolol. Lisinopril on hold PT and OT consult SCDs for DVT prophylaxis. Consider restarting aspirin and Lovenox soon Patient may take his own home meds Add proton pump inhibitor for stomach protection while on high-dose Decadron ZELALEM BEARDEN MD August 08, 2016 16:35
--- NOTE | 2016-08-08 16:55 | DI ---
Indication: ITS.REASON: Confusion Cancer of Kidney PROCEDURE: MRI BRAIN W/WO CONTRAST: Encounter: Subsequent encounter Comparisons: CT head 08/05/2016 Technique: Multiplanar, multisequence, MR imaging of the head with and without contrast was acquired. Contrast: 9 mL of Gadavist FINDINGS: The ventricles are symmetrical and not enlarged. There is no midline shift or mass effect. Marked abnormal signal intensity seen throughout deep white matter on T2 and FLAIR imaging indicating significant small vessel disease. There is a small rounded 6 mm nodule showing enhancement with gadolinium in the left posterior basal ganglia along internal capsule. A subtle hyperintensity is seen quite posterior in left occipital lobe on DWI imaging but does not show obvious gadolinium enhancement and may be artifactual. Brain stem anatomy is unremarkable with no inferior displacement of cerebellar tonsils. The pituitary is not enlarged. The cerebellopontine angle is preserved. Diffusion weighted imaging shows no large wedge-shaped ischemic change. Sinuses are clear. Calvarium is unremarkable. IMPRESSION: 1. Small 6 mm enhancing lesion in left basal ganglia compatible with early metastatic lesion. 2. Extensive chronic appearing deep matter ischemic change throughout deep white matter. No acute ischemic change on diffusion weighted imaging. 3. Small punctate hyperintensity posteriorly in left occipital lobe on DWI imaging but shows no gadolinium enhancement and may be artifactual. .
--- NOTE | 2016-08-08 17:09 | DI ---
Indication: ITS.REASON: Renal cancer. leg weakness PROCEDURE: MRI LUMBAR SPINE W/WO CONTRAST: Encounter: Initial Comparison: CT lumbar spine 08/05/2016 Technique: Multiplanar multisequence MR imaging of the lumbar spine was performed with and without contrast. Contrast: 9 mL Gadavist Findings: There is very subtle superior endplate compression deformity of L1 with fluid signal. This is not well appreciated on prior CT exam. Remainder of the lumbar bodies are unremarkable with no compression deformity or lesions identified. There is no spondylolisthesis. The conus medullaris terminates at L1 which is normal. Disc spaces show the following: L1-2 shows mild bulging with mild ligament flavum hypertrophy producing borderline spinal stenosis. L2-3 shows no focal protrusion. There is mild facet hypertrophy and slight disc bulging producing borderline spinal stenosis. L3-4 shows mild bulging of disc with facet hypertrophy but no significant spinal stenosis or foraminal narrowing. L4-5 shows no focal protrusion or spinal stenosis. L5-S1 shows no focal protrusion or spinal stenosis. Impression: 1. Mild superior endplate compression deformity of L1. No retropulsion of any calcific fragment. 2. Very mild bulging disc and prominent ligament flavum hypertrophy producing overlying spinal stenosis at L1-2 and L2-3. .
--- NOTE | 2016-08-08 17:17 | NUR ---
Status Patient up in chair most of day. Uses a cane when ambulating. Good appetite. Confused. Patient has refused feeling constipated.
[2016-08-08 20:00] VITALS: PULSE 61; RESP 16
[2016-08-08] MEDS: INSULIN GLARGINE 100 UNIT/ML SQ SCH (21:06)
[2016-08-08] MEDS: ATENOLOL 25 MG PO SCH (21:07)
[2016-08-09] VITALS: BP 172/63; PULSE 59; RESP 16; TEMP 97.6; O2SAT 92
[2016-08-09 00:29] VITALS: BP 147/70; PULSE 61; RESP 18; TEMP 98.1; O2SAT 92
[2016-08-09] MEDS: NORMAL SALINE 1,000 ML IV SCH ×2 (00:36→15:48)
[2016-08-09] MEDS: DEXAMETHASONE 4mg/ml - 1ml INJECTION IV SCH ×3 (00:37→17:34)
[2016-08-09] MEDS: BISACODYL 10 MG SUPPOSITORY RECTALLY SCH ×4 (00:45→18:45)
[2016-08-09 04:53] LABS: HCT - HEMATOCRIT 32.5 % (41-53); HGB - HEMOGLOBIN 10.7 GM/DL (13.5-17.5); MEAN CORPUSCULAR HGB 28.9 UUG (26-34); MEAN CORPUSCULAR HGB CONC(MCHC 32.9 GM/DL (31-37); MEAN CORPUSCULAR VOLUME 87.8 UM3 (80-100); MEAN PLATELET VOLUME 10.8 UM3 (9.4-12.4); WBC - WHITE BLOOD COUNT 16.5 T/MM3 (4.5-11.0)
[2016-08-09 05:04] LABS: ALBUMIN 3.4 G/DL (3.5-5.0); ALBUMIN/GLOBULIN RATIO 1.5 RATIO (1.1-2.2); ALKALINE PHOSPHATASE 76 U/L (38-126); ALT (SGPT) 36 U/L (21-72); ANION GAP 10 MEQ/L (5-15); AST (SGOT) 22 U/L (17-59); BUN/CREATININE RATIO 25 RATIO (6-26); CALCIUM 10.9 MG/DL (8.4-10.2); CHLORIDE 104 MEQ/L (98-107); CO2 - CARBON DIOXIDE 26 MEQ/L (22-30); CREATININE 1.3 MG/DL (0.8-1.5); GLOMERULAR FILTRATION RATE 53; GLUCOSE 156 MG/DL (75-110); LDH 341 U/L (313-618); MAGNESIUM 1.9 MG/DL (1.6-2.3); POTASSIUM 4.3 MEQ/L (3.6-5); SODIUM 140 MEQ/L (134-144); TOTAL PROTEIN 5.7 G/DL (6.3-8.2)
--- NOTE | 2016-08-09 05:16 | NUR ---
SHIFT SUMMARY PT ALERT/ORIENTED TO SELF/PLACE. VITAL SIGNS STABLE ON RM AIR. BGMS FASTING AND AC/HS. PT DENIES PAIN. ADEQUATE URINE OP. BLADDER RETRAINING ON EVENING HOURS. PT TRIES TO HIDE HIS CONFUSION, BUT IT IS EVIDENT WITH SIMPLE CONVERSATIONS. STAND BY ASSIST X2 FOR AMBULATION. NO BM THIS SHIFT. PT WAS SLEEPING SO DULCOLAX SUPP WAS HELD. PT WAS IN GOOD SPIRITS THIS EVENING AND SLEPT COMFORTABLY THROUGH THE NIGHT. SCDS ON, CALL LIGHT IN PLACE. WILL CONTINUE TO MONITOR.
[2016-08-09] MEDS: PANTOPRAZOLE 40 MG TABLET PO SCH (06:34)
[2016-08-09] MEDS: INSULIN ASPART 100 UNIT/ML SQ PRN ×3 (06:35→21:52)
[2016-08-09 06:41] LABS: BAND NEUTROPHILS # 0.3 T/MM3; LYMPHOCYTES # (MANUAL) 1.2 T/MM3 (1-4.8); MONOCYTES # (MANUAL) 0.5 T/MM3 (0-0.8); NEUTROPHILS #(MANUAL)-ABSOLUTE 14.5 T/MM3 (1.8-7.7); TOTAL CELLS COUNTED 100 %
[2016-08-09 08:06] VITALS: BP 158/71; PULSE 59; RESP 18; TEMP 95.6; O2SAT 94
[2016-08-09] MEDS: POLYETHYL.GLYCOL 3350 PACKET 17gm PO SCH ×2 (08:24→21:52)
[2016-08-09] MEDS: INSULIN ASPART 100 UNIT/ML SQ SCH ×3 (08:26→17:35)
--- NOTE | 2016-08-09 10:00 | NUR ---
IV IV leaking, DC'd, cath tip intact. New site on left hand, IVF restarted.
--- NOTE | 2016-08-09 10:44 | PNPDOC ---
EMILY STEIN [employer]WORK 08/09/16 1044: Subjective Date DATE: 08/09/16 TIME: 10:42 Sitting in chair at bedside. Oriented to place, person and answers questions appropriately. Continues with intermittent right shoulder/arm and back pain. Relief with as needed medications. Is eating and drinking well. Large BM yesterday. Bruce intact General: No fever, no night sweats Eyes: No redness, no pain, no diplopia ENT: No mouth sores, no trouble swallowing Cardiac: No chest pain no palpitations Pulmonary: No cough, no shortness of breath, no wheezing Abdomen: No pain, no nausea vomiting, no diarrhea or constipation : Bruce catheter intact Musculoskeletal: Right arm in sling. Intermittent arm and back pain Neurological: No headaches, no focal weakness Skin: No rash, no sores Psychiatric: No anxiety, no depression Objective Vital Signs Vital Signs 08/09/16 08/09/16 08/09/16 00:00 00:29 08:06 Temp 97.6 98.1 95.6 Pulse 59 61 59 Resp 16 18 18 B/P 172/63 147/70 158/71 Pulse Ox 92 92 94 O2 Delivery Room Air Room Air Room Air Height (Feet): 5 Height (Inches): 8.00 Weight (Kilograms): 96.400 General Alert, Orientated x 2, No Acute Distress Eyes (Brief) Eyes: FOUND: EOMI, PERRL ENMT (Brief) ENMT: FOUND: mucosa moist Neck (Brief) Neck: NOT FOUND: adenopathy, tenderness Respiratory (Brief) Respiratory: FOUND: clear all navarro, equal bilaterally Cardiovascular (Brief) Cardiac: FOUND: regular rate, regular rhythm Abdomen (Brief) Abdominal: FOUND: BS normo active x4, soft Extremities (Brief) Extremity : Extremity: arm Musculoskeletal (Brief) FOUND: loss of motion (right arm in sling. Distal neurovascular intact), tenderness (right shoulder, mid back) Neurologic (Brief) FOUND: cranial 2-12 intact, NOT FOUND: motor (right arm in sling, limited motion. No other acute motor deficit) Psychiatric (Brief) FOUND: alert, attentive, normal affect, oriented (2) Laboratory Laboratory Tests Test 08/08/16 11:11 08/08/16 17:35 08/09/16 04:10 08/09/16 06:01 Glucometer 216mg/dL 251mg/dL 167mg/dL White Blood Count 16.5T/MM3 Red Blood Count 3.70M/MM3 Hemoglobin 10.7GM/DL Hematocrit 32.5% Mean Corpuscular Volume 87.8UM3 Mean Corpuscular Hemoglobin 28.9UUG Mean Corpuscular Hemoglobin Concent 32.9GM/DL RDW Standard Deviation 38.7FL Platelet Count 214T/MM3 Mean Platelet Volume 10.8UM3 Immature Granulocyte % (Auto) % Neutrophils (%) (Auto) % Lymphocytes (%) (Auto) % Monocytes (%) (Auto) % Eosinophils (%) (Auto) % Basophils (%) (Auto) % Absolute Immature Granulocyte (auto T/MM3 Absolute Neutrophils (auto) T/MM3 Absolute Lymphocytes (auto) T/MM3 Absolute Monocytes (auto) T/MM3 Absolute Eosinophils (auto) T/MM3 Absolute Basophils (auto) T/MM3 Neutrophils % (Manual) 88.0% Band Neutrophils % 2.0% Lymphocytes % (Manual) 7.0% Monocytes % (Manual) 3.0% Absolute Neutrophils (Manual) 14.5T/MM3 Band Neutrophils # 0.3T/MM3 Lymphocytes # (Manual) 1.2T/MM3 Monocytes # (Manual) 0.5T/MM3 Red Cell Morphology Comment Normal Turbidity < 20 Sodium Level 140MEQ/L Potassium Level 4.3MEQ/L Chloride Level 104MEQ/L Carbon Dioxide Level 26MEQ/L Anion Gap 10MEQ/L Blood Urea Nitrogen 32.0MG/DL Creatinine 1.3MG/DL Glomerular Filtration Rate Calc 53 BUN/Creatinine Ratio 25RATIO Glucose Level 156MG/DL Calculated Osmolality 279MOSM/KG Calcium Level 10.9MG/DL Magnesium Level 1.9MG/DL Total Bilirubin 0.70MG/DL Icterus Index < 2 Aspartate Amino Transf (AST/SGOT) 22U/L Alanine Aminotransferase (ALT/SGPT) 36U/L Alkaline Phosphatase 76U/L Lactate Dehydrogenase 341U/L Total Protein 5.7G/DL Albumin 3.4G/DL Globulin 2.3G/DL Albumin/Globulin Ratio 1.5RATIO Chemistry Specimen Hemolysis < 15 Radiology Date of exam 08/08/16 MRI brain with/without contrast Impression 1. Small 6 mm enhancing lesion in left basal ganglia compatible with early metastatic lesion 2. Extensive chronic appearing deep matter ischemic change throughout deep white matter. No ischemic change on diffusion weighted imaging 3. Small punctate hyperintense T posteriorly in left occipital lobe on DWI imaging but shows no gadolineum enhancement and may be artifactual Assessment & Plan Assessment 1. 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 Confusion worrisome for brain metastasis. Brain MRI shows single lesion. Right leg weakness that dexamethasone was started on. Will obtain MRI of lumbar spine. Discussed disease and possible treatments with patient and . Will obtain staging and see if areas need radiation therapy and then discuss potential option of targeted therapy either Torisel versus Votrient. [facility] prognostic group looks at 5 factors. Karnofsky performance status less than 80%, LDH greater than 1-1/2 times normal, corrected serum calcium greater than 10, hemoglobin concentration of the lower limits of normal, and absence of nephrectomy. The patient has decreased performance status, elevated calcium, low hemoglobin, and absence of nephrectomy. This would be considered high risk disease. Up-to-date information about choice of therapy: No prior systemic therapy For patients who are not candidates for IL-2 ( including those patients without access to IL-2 therapy and those who decline treatment), we recommend molecularly targeted therapy. (See "Overview of the treatment of renal cell carcinoma", section on 'Molecularly targeted therapy'.) -The primary targeted approaches in this first-line setting include pazopanib, sunitinib, and bevacizumab plus interferon-elizabeth (IFNa) (table 2). There are only limited data comparing these agents. -Our preference for initial therapy of good- or intermediate-risk patients is for either pazopanib or sunitinib. These two agents had similar efficacy when compared in a randomized trial, although pazopanib was associated with less toxicity, including fatigue. (See 'Risk stratification' above and 'Pazopanib versus sunitinib' below.) -For patients with a poor prognosis, we prefer sunitinib, as this was shown to be superior to mTOR inhibitors in such patients in the RECORD 3 trial [3]. Temsirolimus could also be an option, but its use should be limited to patients with poor-risk features and tumors displaying evidence of mutations in the PI3K pathway [4]. -Cabozantinib had an improved progression-free survival and a higher objective response rate compared with sunitinib in a randomized phase II trial in patients with intermediate- or high-risk disease, but it is not yet approved for use in patients who have not received prior anti-angiogenic therapy. Based on above Sutent would be the best therapy. Could consider Temsirolimus if mutations are present in PI 3K pathway. Neither one of these would be started if he needs radiation therapy for brain metastasis or symptomatic bone metastasis. 2. Falls. 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 Unable to do CT contrast because of renal insufficiency. This is currently improving with catheter. MRI performed, shows single brain metastases 3. Hypercalcemia. Calcium 13.0 on 08/05/16. Continues to improve with hydration; calcium 11.5 on 08/07/16, 11.2 on 08/08/16 and 10.9 today. Continue supportive care and consider Zometa. 4. Bilateral lung nodules consistent with metastatic disease 5. Probable pathologic fracture of right clavicle medial head; being followed by orthopedics. 6. Diabetes. Added dexamethasone on 08/07/16. Plan/Intensity of Service Positive brain metastasis. Dr. Gilliam will be here later today to discuss findings and treatment options. Options include hospice, Sutent, radiation therapy for symptomatic disease. Patient has VA benefits and may be of benefit to look at using VA services. Code Status Full Code Hospital Course Summary Disclaimer The visit summary below is not to be considered part of the above Progress Note. Hospital Course Summary 08/06/2016-Dr. Bearden I have reviewed the H&P above, lab, med rec, and radiology. I agree with the H& P above along with my additions below. Chief complaint: Weakness, falls, right shoulder pain History of present illness: The patient is a pleasant 80-year-old male who has had weakness and several falls over the past couple of weeks. He also states that he has lost 32 pounds in the past 20 days. He states he's eating less because of pain in his "rear-end". He states that he feels like he can't have a bowel movement. After Bruce catheter was placed last night for urinary retention the pain in his "rear-end" resolved. He states most of his falls were because of carelessness. He denies any chest pains or lightheadedness. He denies any shortness of breath. He denies any nausea or vomiting. He denies any headache or abdominal pain. He denies any vision changes. He does complain of pain in his shoulder and points to the right clavicle as the area of his pain. He states he did fall and hit this area as well as hitting his head. Presents of review of systems is negative other than the above in history of present illness Past medical history is significant for diabetes, coronary artery disease, hyperlipidemia, hypertension Past surgical history significant for bypass Family history: No family history of cancer Social history the patient is and a lifelong nonsmoker Medications and allergies are reviewed Physical exam Patient is a very pleasant 80-year-old male in no acute distress. He is alert and oriented 3. HEENT reveals sclerae to be anicteric and oropharynx is moist. Neck is supple. Chest is clear to auscultation. Cardiovascular reveals a regular rate and rhythm without murmur. Abdomen is soft and nontender with positive bowel sounds. Extremities are free of edema. Motor strength is equal in all 4 extremities. Skin is warm and dry and without rashes. Labs this morning shows hemoglobin 11.2 down from 12.6, likely dilutional. White count and platelets are okay. Differential is essentially normal Comprehensive metabolic shows BUN down to 27 from 31, creatinine down to 1.4 from 1.6. Calcium improved from 13.1 down to 12.1. Bilirubin 1.5. Total protein 5.9. Globulin 2.2. TSH is normal at 2.16. INR and PTT are pending CT thoracic spine shows no bony metastases. CT lumbar spine shows lytic foci of skeletal metastasis in the ilium bilaterally. No definite spinal metastasis or acute appearing compression fracture. Cervical spine shows no acute traumatic abnormality of the cervical spine. Advanced degenerative disc disease and mild diffuse posterior facet adenopathy. No clear subluxation. Probable pathologic fracture of the medial right clavicle. Right Shoulder x-ray shows innumerable pulmonary metastasis. No definite skeletal metastasis to the right shoulder. No dislocation or bony destructive process. Right Humeral x-ray shows no acute osseous abnormality. CT chest, abdomen and pelvis Chest: There are innumerable pulmonary metastases diffusely spread throughout both lungs. There is no clear mediastinal or hilar adenopathy. No definite metastasis to the thoracic spine or included ribs. No pleural effusion. Heart size is normal. No pericardial effusion. CT ABDOMEN: There is a neck cephalic mass projecting posteriorly from the right kidney suspicious for a primary renal carcinoma. No definite hydronephrosis. There is mild bilateral perinephric stranding. There are some vascular calcifications centrally within both kidneys. No definite nonobstructing urinary calculus. The liver, spleen, pancreas, and adrenal glands are unremarkable in contour. The gallbladder is filled with hyperdense material suggesting gallstones. There is moderate calcification of the abdominal aorta without aneurysmal dilation. No definite retroperitoneal or mesenteric adenopathy. There is no retroperitoneal or mesenteric adenopathy. No definite bony metastasis to the lumbar spine. CT PELVIS: The urinary bladder is moderately distended. There is extensive colonic diverticulosis without evidence of diverticulitis. The prostate gland is heterogeneously enlarged. The seminal vesicles are not enlarged. There is no pelvic sidewall adenopathy. No free fluid. There are a few sclerotic bony foci and lytic foci suspicious for bony pelvic metastases. IMPRESSION: Innumerable pulmonary metastasis with a few osseous metastases and suspicious mass in the right kidney suspicious for primary renal carcinoma. This could also represent prostate carcinoma. Moderate urinary bladder distention which could suggest bladder outlet obstruction. Cholelithiasis without evidence for cholecystitis. Extensive distal colonic diverticulosis without evidence of diverticulitis. 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 Continue IV fluids. Calcium is improving. Continue to monitor with IV fluids and off of calcium and vitamin D. Dr. Gilliam, oncologist consulted. He recommends biopsy. I did call and talk with Dr. Warren, radiologist and he thinks the renal mass would be the safest to biopsy. Will biopsy greater than 12 hours after last heparin subcutaneous dose. We'll check INR and PTT prior. We'll consult orthopedics regarding right clavicular fracture. Monitor Accu-Cheks and give insulin as needed Continue with Bruce catheterization for urinary retention MiraLAX for constipation Repeat CBC, BMP and calcium in a.m. Continue atenolol and lisinopril PT and OT consult Stop aspirin and heparin for now. SCDs for DVT prophylaxis. 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-kidney mass biopsied and results are pending Bone survey shows multiple lytic possible metastatic lesions Hypercalcemia in a patient with probable cancer with bony metastases who was also on calcium and vitamin D replacement-calcium improving on IV fluids and off of calcium and vitamin D Falls with generalized weakness 30 pound weight loss Right clavicular fracture -possibly pathologic Acute kidney injury-improving with IV fluids and Bruce catheter Urinary retention-continue with Bruce catheterization for now, hopefully will improve with treatment of constipation Constipation -had Dulcolax suppositories, check for rectal impaction, may need KUB Type 2 diabetes mellitus-blood sugars currently well controlled but IV steroids started today. Will start home Lantus and NovoLog Coronary artery disease-asymptomatic Hypertension-fair control on atenolol, lisinopril is on hold for acute kidney injury Hyperlipidemia-statin is currently on hold, consider restarting soon Plan Continue IV fluids, but at lower rate for acute kidney injury and hypercalcemia Monitor Accu-Cheks and restart home insulin Continue with Bruce catheterization for urinary retention MiraLAX for constipation, add Dulcolax suppositories, check for rectal impaction , possible KUB Repeat lab in the morning Continue atenolol. Lisinopril on hold PT and OT consult SCDs for DVT prophylaxis. Consider restarting aspirin and Lovenox soon Patient may take his own home meds Add proton pump inhibitor for stomach protection while on high-dose Decadron CHRIS GILLIAM 08/09/16 1347: Subjective Visit with patient and about brain metastasis. Objective Neck (Brief) Neck: NOT FOUND: adenopathy Respiratory (Brief) Respiratory: FOUND: clear all navarro, equal bilaterally Cardiovascular (Brief) Cardiac: FOUND: regular rate, regular rhythm, NOT FOUND: pedal edema Abdomen (Brief) Abdominal: FOUND: soft, NOT FOUND: distended, hepatosplenomegaly, tender Lymphatic (Brief) NOT FOUND: adenopathy Musculoskeletal (Brief) FOUND: other (right arm in sling) Laboratory Item Value Date Time White Blood Count 16.5 T/MM3 H # 08/09/16 0410 White Blood Count 10.8 T/MM3 08/08/16 0438 Hemoglobin 10.7 GM/DL L 08/09/16 0410 Hemoglobin 11.0 GM/DL L 08/08/16 0438 Platelet Count 214 T/MM3 08/09/16 0410 Platelet Count 195 T/MM3 08/08/16 0438 Creatinine 1.3 MG/DL 08/09/16 0410 Lactate Dehydrogenase 341 U/L 08/09/16 0410 Glucometer 244 mg/dL H 08/09/16 1100 Glucometer 167 mg/dL H 08/09/16 0601 Glucometer 251 mg/dL H 08/08/16 1735 Radiology [place], [place] [address] Name: [facility] Unit #: [id number] Signed Page 2 of 2 DIAGNOSTIC IMAGING REPORT Report #: [id number] Dictated By: MASON CORTEZ MD 08/08/161657 Signed date/time: 08/08/161705 Transcribed By: [facility] 08/08/161699 cc: ZELALEM BEARDEN MD [address] [address] [phone] Dictated By: MASON CORTEZ MD 08/08/161657 Signed date/time: 08/08/161705 Transcribed By: [facility] 08/08/161699 cc: ZELALEM BEARDEN MD DATE OF EXAM: 08/08/16 ORDERING DOCTOR: CHRIS GILLIAM TYPE OF EXAM: MRI LUMBAR SPINE W/WO CONTRAST REASON FOR EXAM: Renal cancer. leg weakness Indication: ITS.REASON: Renal cancer. leg weakness PROCEDURE: MRI LUMBAR SPINE W/WO CONTRAST: Encounter: Initial Comparison: CT lumbar spine 08/05/2016 Technique: Multiplanar multisequence MR imaging of the lumbar spine was performed with and without contrast. Contrast: 9 mL Gadavist Findings: There is very subtle superior endplate compression deformity of L1 with fluid signal. This is not well appreciated on prior CT exam. Remainder of the lumbar bodies are unremarkable with no compression deformity or lesions identified. There is no spondylolisthesis. The conus medullaris terminates at L1 which is normal. Disc spaces show the following: L1-2 shows mild bulging with mild ligament flavum hypertrophy producing borderline spinal stenosis. L2-3 shows no focal protrusion. There is mild facet hypertrophy and slight disc bulging producing borderline spinal stenosis. L3-4 shows mild bulging of disc with facet hypertrophy but no significant spinal stenosis or foraminal narrowing. L4-5 shows no focal protrusion or spinal stenosis. L5-S1 shows no focal protrusion or spinal stenosis. Impression: 1. Mild superior endplate compression deformity of L1. No retropulsion of any calcific fragment. 2. Very mild bulging disc and prominent ligament flavum hypertrophy producing overlying spinal stenosis at L1-2 and L2-3. . Assessment & Plan Assessment Patient examined, chart reviewed, discussed with Dr. Natalia Cummings. MRI of the brain shows a 6 mm focus consistent with metastatic disease. MRI of the lumbar spine shows no metastasis but some area of nerve root encroachment. More alert today but still confused. Calcium is less at 10.9. Creatinine stable at 1.3. He would like to go home. Will obtain echocardiogram to evaluate cardiac function for potential use of Sutent. Cannot use TKI's until after completion of radiation therapy. Will consult Dr. Natalia Cummings about potential for radiation therapy to the brain lesion. Agree with documentation by Bettye Stein. I participated in the development of the plan of care with this patient. Plan/Intensity of Service Consult radiation therapy Continue steroids Evaluate cardiac function for the potential use of Sutent. Also want to be sure he has thyroid functions for baseline. EMILY STEIN [employer]ICE PRESIDENT [employer] August 09, 2016 10:44 CHRIS GILLIAM August 09, 2016 13:47
--- NOTE | 2016-08-09 14:34 | CONSPD ---
Consultation Date DATE: 08/09/16 TIME: 14:23 80-year old gentleman seen in the emergency room with complaints of dysbalance, falling, weakness, and confusion. He has fallen several times, initially feeling he had lost his balance. He landed on his shoulder and began to have persistent middle back and shoulder pain x one week. The initial work-up in the emergency room demonstrated overwhelming metastatic disease involving pulmonary, hepatic, renal, and osseous elements. There was a fractured right medial clavicle. Upon admission, he had an elevated calcium level of 13 which has now come down to normal. Despite this, he is still confused and further work--up was begun including MRI of the brain. A 6mm enhancing lesion in the left basal ganglia was noted consistent with metastatic disease. The CT scan of the chest/abdomen/pelvis 08/05/16, demonstrated innumerable pulmonary metastases, sclerotic and lytic foci involving the axial skeleton, and a right renal mass consistent with neoplasia. Biopsy of the mass was consistent with a renal cell carcinoma. Recommendations: Discussed the patient with Dr. Gilliam who has evaluated the patient and is proceeding with further work-up. Whole brain radiation is recommended given then extensive metastatic deposits and general poor status of the patient. Because of the extensive, chronic, deep matter ischemic changes throughout the deep white matter as well as the small punctate hyperintense left occipital lobe changes, a 250 cGy fraction will be chosen instead of 300 cGy in order4 to decrease his risk of neurotoxicity. Risks and side effects were discussed with the patient. Simulation will proceed today with treatment anticipated for Saturday. BI WILSON MD August 09, 2016 14:34
--- NOTE | 2016-08-09 15:22 | PNPDOC ---
CHERELLE WILLAMS V [employer]MENT [employer]OCIATE 08/09/16 1512: Subjective Date DATE: 08/09/16 TIME: 15:09 Subjective Mason is seen today during lunch. He is alert and orientated during examination. He states that he is feeling good and wants to be discharged home today. We discussed that further discussion with the oncology team is pending for later today. He denies having pain or feeling short of breath. Heart rate 60. Hyperglycemia noted. Objective Vital Signs Vital signs Vital Signs Date Time Temp Pulse Resp B/P Pulse Ox O2 Delivery O2 Flow Rate FiO2 08/09/16 08:06 95.6 59 18 158/71 94 Room Air 08/06/16 15:55 2.00 Telemetry Rhythm: Sinus Rhythm Height (Feet): 5 Height (Inches): 8.00 Weight (Kilograms): 96.400 General General Appearance: Alert, Orientated x 2, Cooperative, No Acute Distress Eyes (Brief) Eyes: FOUND: EOMI ENMT (Brief) ENMT: FOUND: mucosa moist, normal dentition, NOT FOUND: pharnyx erythema Neck (Brief) Neck: FOUND: midline, NOT FOUND: adenopathy, carotid bruits, tracheal deviation Respiratory (Brief) Respiratory: FOUND: clear all navarro, equal bilaterally, NOT FOUND: wheezes Cardiovascular (Brief) Cardiac: FOUND: regular rate, regular rhythm, NOT FOUND: murmur, pedal edema Capillary Refill: <2 sec Abdomen (Brief) Abdominal: FOUND: BS normo active x4, soft, NOT FOUND: distended, tender (Brief) Comments Bruce cath Lymphatic (Brief) Lymphatic: NOT FOUND: adenopathy Musculoskeletal (Brief) Musculoskeletal: NOT FOUND: tenderness Integumentary (Brief) Integumentary: FOUND: dry, pink, warm Neurologic (Brief) Neurological: FOUND: cranial 2-12 intact Psychiatric (Brief) Psychiatric: FOUND: alert, attentive, normal affect, oriented Laboratory Laboratory Laboratory Tests 08/08/16 04:38 08/09/16 04:10 Laboratory Tests 08/08/16 04:38 08/09/16 04:10 Assessment & Plan Assessment 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 MRI of the brain indicated a 6 mm lesion of the left basal ganglia lesion consistent with metastatic lesion Appreciate oncology evaluation and treatment recommendation by Dr Gilliam Continue with sling for support of right clavicle fracture. Continue to monitor blood sugars as they have been elevated. This may be secondary to steroids. Continue with Lantus 30 units and Novolog 10 unit with meals. WBC count elevated likely also related to Decadron Bruce cath for urinary retention. Hypercalcemia continues to improve on IV fluids. Continue to follow. Continue to monitor blood pressures as they are intermittently elevated. Lisinopril on hold. Continue Atenolol. Code Status Full Code Hospital Course Summary Disclaimer The hospital course summary below is not to be considered part of the above Progress Note. Hospital Course Summary 08/06/2016-Dr. Bearden I have reviewed the H&P above, lab, med rec, and radiology. I agree with the H& P above along with my additions below. Chief complaint: Weakness, falls, right shoulder pain History of present illness: The patient is a pleasant 80-year-old male who has had weakness and several falls over the past couple of weeks. He also states that he has lost 32 pounds in the past 20 days. He states he's eating less because of pain in his "rear-end". He states that he feels like he can't have a bowel movement. After Bruce catheter was placed last night for urinary retention the pain in his "rear-end" resolved. He states most of his falls were because of carelessness. He denies any chest pains or lightheadedness. He denies any shortness of breath. He denies any nausea or vomiting. He denies any headache or abdominal pain. He denies any vision changes. He does complain of pain in his shoulder and points to the right clavicle as the area of his pain. He states he did fall and hit this area as well as hitting his head. Presents of review of systems is negative other than the above in history of present illness Past medical history is significant for diabetes, coronary artery disease, hyperlipidemia, hypertension Past surgical history significant for bypass Family history: No family history of cancer Social history the patient is and a lifelong nonsmoker Medications and allergies are reviewed Physical exam Patient is a very pleasant 80-year-old male in no acute distress. He is alert and oriented 3. HEENT reveals sclerae to be anicteric and oropharynx is moist. Neck is supple. Chest is clear to auscultation. Cardiovascular reveals a regular rate and rhythm without murmur. Abdomen is soft and nontender with positive bowel sounds. Extremities are free of edema. Motor strength is equal in all 4 extremities. Skin is warm and dry and without rashes. Labs this morning shows hemoglobin 11.2 down from 12.6, likely dilutional. White count and platelets are okay. Differential is essentially normal Comprehensive metabolic shows BUN down to 27 from 31, creatinine down to 1.4 from 1.6. Calcium improved from 13.1 down to 12.1. Bilirubin 1.5. Total protein 5.9. Globulin 2.2. TSH is normal at 2.16. INR and PTT are pending CT thoracic spine shows no bony metastases. CT lumbar spine shows lytic foci of skeletal metastasis in the ilium bilaterally. No definite spinal metastasis or acute appearing compression fracture. Cervical spine shows no acute traumatic abnormality of the cervical spine. Advanced degenerative disc disease and mild diffuse posterior facet adenopathy. No clear subluxation. Probable pathologic fracture of the medial right clavicle. Right Shoulder x-ray shows innumerable pulmonary metastasis. No definite skeletal metastasis to the right shoulder. No dislocation or bony destructive process. Right Humeral x-ray shows no acute osseous abnormality. CT chest, abdomen and pelvis Chest: There are innumerable pulmonary metastases diffusely spread throughout both lungs. There is no clear mediastinal or hilar adenopathy. No definite metastasis to the thoracic spine or included ribs. No pleural effusion. Heart size is normal. No pericardial effusion. CT ABDOMEN: There is a neck cephalic mass projecting posteriorly from the right kidney suspicious for a primary renal carcinoma. No definite hydronephrosis. There is mild bilateral perinephric stranding. There are some vascular calcifications centrally within both kidneys. No definite nonobstructing urinary calculus. The liver, spleen, pancreas, and adrenal glands are unremarkable in contour. The gallbladder is filled with hyperdense material suggesting gallstones. There is moderate calcification of the abdominal aorta without aneurysmal dilation. No definite retroperitoneal or mesenteric adenopathy. There is no retroperitoneal or mesenteric adenopathy. No definite bony metastasis to the lumbar spine. CT PELVIS: The urinary bladder is moderately distended. There is extensive colonic diverticulosis without evidence of diverticulitis. The prostate gland is heterogeneously enlarged. The seminal vesicles are not enlarged. There is no pelvic sidewall adenopathy. No free fluid. There are a few sclerotic bony foci and lytic foci suspicious for bony pelvic metastases. IMPRESSION: Innumerable pulmonary metastasis with a few osseous metastases and suspicious mass in the right kidney suspicious for primary renal carcinoma. This could also represent prostate carcinoma. Moderate urinary bladder distention which could suggest bladder outlet obstruction. Cholelithiasis without evidence for cholecystitis. Extensive distal colonic diverticulosis without evidence of diverticulitis. 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 Continue IV fluids. Calcium is improving. Continue to monitor with IV fluids and off of calcium and vitamin D. Dr. Gilliam, oncologist consulted. He recommends biopsy. I did call and talk with Dr. Warren, radiologist and he thinks the renal mass would be the safest to biopsy. Will biopsy greater than 12 hours after last heparin subcutaneous dose. We'll check INR and PTT prior. We'll consult orthopedics regarding right clavicular fracture. Monitor Accu-Cheks and give insulin as needed Continue with Bruce catheterization for urinary retention MiraLAX for constipation Repeat CBC, BMP and calcium in a.m. Continue atenolol and lisinopril PT and OT consult Stop aspirin and heparin for now. SCDs for DVT prophylaxis. 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-kidney mass biopsied and results are pending Bone survey shows multiple lytic possible metastatic lesions Hypercalcemia in a patient with probable cancer with bony metastases who was also on calcium and vitamin D replacement-calcium improving on IV fluids and off of calcium and vitamin D Falls with generalized weakness 30 pound weight loss Right clavicular fracture -possibly pathologic Acute kidney injury-improving with IV fluids and Bruce catheter Urinary retention-continue with Bruce catheterization for now, hopefully will improve with treatment of constipation Constipation -had Dulcolax suppositories, check for rectal impaction, may need KUB Type 2 diabetes mellitus-blood sugars currently well controlled but IV steroids started today. Will start home Lantus and NovoLog Coronary artery disease-asymptomatic Hypertension-fair control on atenolol, lisinopril is on hold for acute kidney injury Hyperlipidemia-statin is currently on hold, consider restarting soon Plan Continue IV fluids, but at lower rate for acute kidney injury and hypercalcemia Monitor Accu-Cheks and restart home insulin Continue with Bruce catheterization for urinary retention MiraLAX for constipation, add Dulcolax suppositories, check for rectal impaction , possible KUB Repeat lab in the morning Continue atenolol. Lisinopril on hold PT and OT consult SCDs for DVT prophylaxis. 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 MRI of the brain indicated a 6 mm lesion of the left basal ganglia lesion consistent with metastatic lesion Appreciate oncology evaluation and treatment recommendation by Dr Gilliam Continue with sling for support of right clavicle fracture. Continue to monitor blood sugars as they have been elevated. This may be secondary to steroids. Continue with Lantus 30 units and Novolog 10 unit with meals. WBC count elevated likely also related to Decadron Bruce cath for urinary retention. Hypercalcemia continues to improve on IV fluids. Continue to follow. Continue to monitor blood pressures as they are intermittently elevated. Lisinopril on hold. Continue Atenolol. ZELALEM BEARDEN MD 08/09/16 1606: Assessment & Plan Assessment 08/09/2016-I reviewed this chart, the patient history, and the RET[employer] E[employer]MENT ASSOCIATE's/PA's documented findings as above. We discussed and formulated the assessment and plan as above with the additions below.-Dr. Bearden The patient was seen in his room today accompanied by his . The patient states he's feeling okay other than right arm pain. His right arm is in a sling but he has not wearing it appropriately. He is still forgetful but very pleasant this afternoon. He states he is eating and drinking well. He had a large bowel movement today. He denies any shortness of breath. He strongly wants to go home. 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 He continues to need somebody walking beside him. On exam today he is alert and mildly confused. He is in no acute distress. Chest is clear to auscultation. Cardiovascular reveals a regular rate and rhythm. Abdomen is soft and nontender. Bowel sounds are normoactive. Extremities are free of edema. MRI brain did show a likely metastasis. The patient was evaluated by radiation oncology today with plans for radiation therapy to start on Saturday. We'll DC IV fluids today and reevaluate renal function and calcium tomorrow. We'll try discontinuation of Bruce catheter today. Monitor for recurrence of urinary retention. Continue to monitor Accu-Cheks. They need to increase insulin if blood sugars are significantly elevated. Continue to hold lisinopril for now and continue to monitor renal function and blood pressure. Discussed with the patient's , nurse, and SIMON Garcia for Dr. Gilliam. I did fill out the form for the patient for a temporary handicap sticker. Greater than 35 minutes of time was spent seeing and evaluating the patient and determining care plans. CHERELLE WILLAMS APRN August 09, 2016 15:12 ZELALEM BEARDEN MD August 09, 2016 16:06
--- NOTE | 2016-08-09 15:23 | NUR ---
procedure US at 1400, measurements at [facility] and CT after at 1500. Back to room at 1530, pt tolerated well.
[2016-08-09] MEDS: HYDROCODONE/APAP 5 mg/325 mg TABLET PO PRN (15:44)
[2016-08-09 15:47] VITALS: BP 151/71; PULSE 58; RESP 18; TEMP 96.3; O2SAT 94
--- NOTE | 2016-08-09 19:46 | NUR ---
status Pt A/O x3 with confusion at times. V/S stable on RA. Pt ambulating with 1x assist and cane. Bruce N.O. to DC, taken out after dinner, lg stool today. Pt rating pain at 7/10, PRN pain meds given with pt stating relief. Rt arm to sling R/T clavical FX. Pt up to chair most of the day. Eating and drinking well all day.
[2016-08-09 20:00] VITALS: PULSE 72; RESP 14
[2016-08-09] MEDS: INSULIN GLARGINE 100 UNIT/ML SQ SCH (21:51)
[2016-08-09] MEDS ORDERED: HYDROCODONE/APAP 5 mg/325 mg TABLET PO SCH (22:00)
[2016-08-09] MEDS: ATENOLOL 25 MG PO SCH (22:41)
[2016-08-10] VITALS: BP 155/68; PULSE 60; RESP 16; TEMP 97.3; O2SAT 95
[2016-08-10] MEDS: BISACODYL 10 MG SUPPOSITORY RECTALLY SCH ×3 (00:45→12:11)
[2016-08-10] MEDS: DEXAMETHASONE 4mg/ml - 1ml INJECTION IV SCH ×3 (02:00→17:09)
[2016-08-10 04:57] LABS: HCT - HEMATOCRIT 32.6 % (41-53); HGB - HEMOGLOBIN 10.8 GM/DL (13.5-17.5); MEAN CORPUSCULAR HGB 29.3 UUG (26-34); MEAN CORPUSCULAR HGB CONC(MCHC 33.1 GM/DL (31-37); MEAN CORPUSCULAR VOLUME 88.3 UM3 (80-100); MEAN PLATELET VOLUME 10.3 UM3 (9.4-12.4); RED BLOOD COUNT 3.69 M/MM3 (4.50-5.90); WBC - WHITE BLOOD COUNT 16.2 T/MM3 (4.5-11.0)
[2016-08-10 05:03] LABS: ANION GAP 8 MEQ/L (5-15); BUN/CREATININE RATIO 30 RATIO (6-26); CALCIUM 10.5 MG/DL (8.4-10.2); CHLORIDE 102 MEQ/L (98-107); CO2 - CARBON DIOXIDE 27 MEQ/L (22-30); CREATININE 1.1 MG/DL (0.8-1.5); GLOMERULAR FILTRATION RATE 65; GLUCOSE 124 MG/DL (75-110); POTASSIUM 4.4 MEQ/L (3.6-5); SODIUM 137 MEQ/L (134-144)
[2016-08-10 06:37] LABS: MONOCYTES # (MANUAL) 0.2 T/MM3 (0-0.8); TOTAL CELLS COUNTED 100 %
[2016-08-10] MEDS: PANTOPRAZOLE 40 MG TABLET PO SCH (06:42)
--- NOTE | 2016-08-10 07:57 | ECHOF ---
DATE OF PROCEDURE. August 09, [address] Lydia Bearden This is a two-dimensional echo with spectral Doppler, color-flow and M-mode. Left atrium is dilated. Left ventricle end-diastolic dimension is increased. Left ventricle wall thickness is normal. LV systolic function is normal with ejection fraction of 70%. Right atrium is normal. Right ventricle is normal. Aortic root dimension is normal. Mitral valve is normal with mild mitral regurgitation. Aortic valve shows no stenosis or insufficiency. Tricuspid valve shows mild tricuspid regurgitation with moderate pulmonary hypertension with estimated pulmonary artery systolic pressure of 50. Pulmonary valve shows no pulmonary insufficiency. There is no pericardial effusion. IMPRESSION 1. Normal LV systolic function with ejection fraction of 70%. 2. Left atrial dilation. 3. Mild left ventricular dilation. 4. Mild mitral regurgitation. 5. Mild tricuspid regurgitation with moderate pulmonary hypertension with estimated pulmonary artery systolic pressure of 50. MTDD
[2016-08-10 08:05] VITALS: BP 135/64; PULSE 56; RESP 18; TEMP 97.8; O2SAT 95
--- NOTE | 2016-08-10 08:23 | DI ---
Indication: ITS.REASON: cancer CT LIMITED, OR LOCALIZED F/U: Comparison: 08/05/2016 Technique: Patient scanned from the jaw through the top of the head. Dose reduction imaging technology and brain and bone window evaluation provided. Findings: No acute intracranial findings are noted. Generalized atrophy and deep white matter changes are noted. Bone window evaluation showed no acute bony findings. Visualized sinuses and mastoids are unremarkable. No pathologic adenopathy appreciated. Impression: No definitive acute findings appreciated. .
[2016-08-10] MEDS: INSULIN ASPART 100 UNIT/ML SQ SCH ×3 (08:28→17:10)
[2016-08-10] MEDS: POLYETHYL.GLYCOL 3350 PACKET 17gm PO SCH (08:28)
--- NOTE | 2016-08-10 10:39 | PNPDOC ---
EMILY STEIN COMPOSING ROOM SUPERVISOR 08/10/16 1039: Subjective Date DATE: 08/10/16 TIME: 10:35 Sitting in chair, at bedside. Oriented to person/place. Difficulty with short-term memory, i.e. states was told needed 6 radiation treatments. corrects patient, states 16. Verbalizes has decided to pursue the radiation treatment. Continues with intermittent right shoulder and back pain, denies currently. Denies headaches, vision changes, no fever or chills. He is eating and drinking normally. Indwelling Bruce catheter with clear yellow urine. Reports normal bowel movement yesterday. General: No fever, no night sweats Eyes: No redness, no pain, no diplopia ENT: No mouth sores, no trouble swallowing Cardiac: No chest pain no palpitations Pulmonary: No cough, no shortness of breath, no wheezing Abdomen: No pain, no nausea vomiting, no diarrhea or constipation : No urgency, frequency, dysuria, or hematuria Musculoskeletal: Positive shoulder and back pain, right arm in sling. Neurological: No headaches, no focal weakness Skin: No rash, no sores Psychiatric: No anxiety, no depression Objective Vital Signs Vital Signs 08/10/16 08/10/16 00:00 08:05 Temp 97.3 97.8 Pulse 60 56 Resp 16 18 B/P 155/68 135/64 Pulse Ox 95 95 O2 Delivery Room Air Room Air Height (Feet): 5 Height (Inches): 8.00 Weight (Kilograms): 96.400 General Alert, Orientated x 2, No Acute Distress Eyes (Brief) Eyes: FOUND: EOMI, PERRL ENMT (Brief) ENMT: FOUND: mucosa moist, NOT FOUND: lesions Neck (Brief) Neck: NOT FOUND: adenopathy Respiratory (Brief) Respiratory: FOUND: clear all navarro, equal bilaterally Cardiovascular (Brief) Cardiac: FOUND: regular rate, regular rhythm, NOT FOUND: pedal edema Abdomen (Brief) Abdominal: FOUND: soft, NOT FOUND: distended, hepatosplenomegaly, tender Extremities (Brief) Extremity : Extremity: arm Lymphatic (Brief) NOT FOUND: adenopathy Musculoskeletal (Brief) FOUND: other (right arm in sling) Neurologic (Brief) FOUND: cranial 2-12 intact, NOT FOUND: motor (right arm in sling, limited motion. No other acute motor deficit) Psychiatric (Brief) FOUND: alert, attentive, normal affect, oriented (2) Laboratory Laboratory Tests Test 08/09/16 11:00 08/09/16 17:31 08/09/16 20:47 08/10/16 04:29 Glucometer 244mg/dL 121mg/dL 166mg/dL White Blood Count 16.2T/MM3 Red Blood Count 3.69M/MM3 Hemoglobin 10.8GM/DL Hematocrit 32.6% Mean Corpuscular Volume 88.3UM3 Mean Corpuscular Hemoglobin 29.3UUG Mean Corpuscular Hemoglobin Concent 33.1GM/DL RDW Standard Deviation 39.2FL Platelet Count 219T/MM3 Mean Platelet Volume 10.3UM3 Neutrophils % (Manual) 99.0% Monocytes % (Manual) 1.0% Absolute Neutrophils (Manual) 16.0T/MM3 Monocytes # (Manual) 0.2T/MM3 Red Cell Morphology Comment Normal Turbidity < 20 Sodium Level 137MEQ/L Potassium Level 4.4MEQ/L Chloride Level 102MEQ/L Carbon Dioxide Level 27MEQ/L Anion Gap 8MEQ/L Blood Urea Nitrogen 33.0MG/DL Creatinine 1.1MG/DL Glomerular Filtration Rate Calc 65 BUN/Creatinine Ratio 30RATIO Glucose Level 124MG/DL Calculated Osmolality 272MOSM/KG Calcium Level 10.5MG/DL Icterus Index < 2 Chemistry Specimen Hemolysis < 15 Test 08/10/16 06:22 Glucometer 114mg/dL Assessment & Plan Assessment 1. 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 Confusion worrisome for brain metastasis. Brain MRI shows single lesion. Right leg weakness; dexamethasone was started. Discussed disease and possible treatments with patient and . Will obtain staging and see if areas need radiation therapy and then discuss potential option of targeted therapy either Torisel versus Votrient. [facility] prognostic group looks at 5 factors. Karnofsky performance status less than 80%, LDH greater than 1-1/2 times normal , corrected serum calcium greater than 10, hemoglobin concentration of the lower limits of normal, and absence of nephrectomy. The patient has decreased performance status, elevated calcium, low hemoglobin, and absence of nephrectomy. This would be considered high risk disease. Up-to-date information about choice of therapy: No prior systemic therapy For patients who are not candidates for IL-2 ( including those patients without access to IL-2 therapy and those who decline treatment), we recommend molecularly targeted therapy. (See "Overview of the treatment of renal cell carcinoma", section on 'Molecularly targeted therapy'.) -The primary targeted approaches in this first-line setting include pazopanib, sunitinib, and bevacizumab plus interferon-elizabeth (IFNa) (table 2). There are only limited data comparing these agents. -Our preference for initial therapy of good- or intermediate-risk patients is for either pazopanib or sunitinib. These two agents had similar efficacy when compared in a randomized trial, although pazopanib was associated with less toxicity, including fatigue. (See 'Risk stratification' above and 'Pazopanib versus sunitinib' below.) -For patients with a poor prognosis, we prefer sunitinib, as this was shown to be superior to mTOR inhibitors in such patients in the RECORD 3 trial [3]. Temsirolimus could also be an option, but its use should be limited to patients with poor-risk features and tumors displaying evidence of mutations in the PI3K pathway [4]. -Cabozantinib had an improved progression-free survival and a higher objective response rate compared with sunitinib in a randomized phase II trial in patients with intermediate- or high-risk disease, but it is not yet approved for use in patients who have not received prior anti-angiogenic therapy. Based on above Sutent would be the best therapy. Could consider Temsirolimus if mutations are present in PI 3K pathway. MRI of the brain shows a 6 mm focus consistent with metastatic disease. MRI of the lumbar spine shows no metastasis but some area of nerve root encroachment. Will obtain echocardiogram to evaluate cardiac function for potential use of Sutent. Cannot use TKI's until after completion of radiation therapy 2. Falls. MRI performed, shows single brain metastases 3. Hypercalcemia. Calcium 13.0 on 08/05/16. Continues to improve with hydration; calcium 11.5 on 08/07/16, 11.2 on 08/08/16, 10.9 on 08/09/16, and today calcium is 10.5. Continue supportive care; consider Zometa. 4. Bilateral lung nodules consistent with metastatic disease 5. Probable pathologic fracture of right clavicle medial head; being followed by orthopedics. 6. Diabetes. Added dexamethasone on 08/07/16. Plan/Intensity of Service Verbalizes he plans to pursue radiation therapy to brain. states was given a calendar, she took the calendar home and requests another calendar. I will see if I can get a scheduling radiation calendar for patient . Will continue supportive care and close monitoring of calcium. Continue steroids Evaluate cardiac function for the potential use of Sutent. Also check thyroid functions for baseline. Await echocardiogram results. TSH 2.16 on 08/05/16. Code Status Full Code Hospital Course Summary Disclaimer The visit summary below is not to be considered part of the above Progress Note. Hospital Course Summary 08/06/2016-Dr. Bearden I have reviewed the H&P above, lab, med rec, and radiology. I agree with the H& P above along with my additions below. Chief complaint: Weakness, falls, right shoulder pain History of present illness: The patient is a pleasant 80-year-old male who has had weakness and several falls over the past couple of weeks. He also states that he has lost 32 pounds in the past 20 days. He states he's eating less because of pain in his "rear-end". He states that he feels like he can't have a bowel movement. After Bruce catheter was placed last night for urinary retention the pain in his "rear-end" resolved. He states most of his falls were because of carelessness. He denies any chest pains or lightheadedness. He denies any shortness of breath. He denies any nausea or vomiting. He denies any headache or abdominal pain. He denies any vision changes. He does complain of pain in his shoulder and points to the right clavicle as the area of his pain. He states he did fall and hit this area as well as hitting his head. Presents of review of systems is negative other than the above in history of present illness Past medical history is significant for diabetes, coronary artery disease, hyperlipidemia, hypertension Past surgical history significant for bypass Family history: No family history of cancer Social history the patient is and a lifelong nonsmoker Medications and allergies are reviewed Physical exam Patient is a very pleasant 80-year-old male in no acute distress. He is alert and oriented 3. HEENT reveals sclerae to be anicteric and oropharynx is moist. Neck is supple. Chest is clear to auscultation. Cardiovascular reveals a regular rate and rhythm without murmur. Abdomen is soft and nontender with positive bowel sounds. Extremities are free of edema. Motor strength is equal in all 4 extremities. Skin is warm and dry and without rashes. Labs this morning shows hemoglobin 11.2 down from 12.6, likely dilutional. White count and platelets are okay. Differential is essentially normal Comprehensive metabolic shows BUN down to 27 from 31, creatinine down to 1.4 from 1.6. Calcium improved from 13.1 down to 12.1. Bilirubin 1.5. Total protein 5.9. Globulin 2.2. TSH is normal at 2.16. INR and PTT are pending CT thoracic spine shows no bony metastases. CT lumbar spine shows lytic foci of skeletal metastasis in the ilium bilaterally. No definite spinal metastasis or acute appearing compression fracture. Cervical spine shows no acute traumatic abnormality of the cervical spine. Advanced degenerative disc disease and mild diffuse posterior facet adenopathy. No clear subluxation. Probable pathologic fracture of the medial right clavicle. Right Shoulder x-ray shows innumerable pulmonary metastasis. No definite skeletal metastasis to the right shoulder. No dislocation or bony destructive process. Right Humeral x-ray shows no acute osseous abnormality. CT chest, abdomen and pelvis Chest: There are innumerable pulmonary metastases diffusely spread throughout both lungs. There is no clear mediastinal or hilar adenopathy. No definite metastasis to the thoracic spine or included ribs. No pleural effusion. Heart size is normal. No pericardial effusion. CT ABDOMEN: There is a neck cephalic mass projecting posteriorly from the right kidney suspicious for a primary renal carcinoma. No definite hydronephrosis. There is mild bilateral perinephric stranding. There are some vascular calcifications centrally within both kidneys. No definite nonobstructing urinary calculus. The liver, spleen, pancreas, and adrenal glands are unremarkable in contour. The gallbladder is filled with hyperdense material suggesting gallstones. There is moderate calcification of the abdominal aorta without aneurysmal dilation. No definite retroperitoneal or mesenteric adenopathy. There is no retroperitoneal or mesenteric adenopathy. No definite bony metastasis to the lumbar spine. CT PELVIS: The urinary bladder is moderately distended. There is extensive colonic diverticulosis without evidence of diverticulitis. The prostate gland is heterogeneously enlarged. The seminal vesicles are not enlarged. There is no pelvic sidewall adenopathy. No free fluid. There are a few sclerotic bony foci and lytic foci suspicious for bony pelvic metastases. IMPRESSION: Innumerable pulmonary metastasis with a few osseous metastases and suspicious mass in the right kidney suspicious for primary renal carcinoma. This could also represent prostate carcinoma. Moderate urinary bladder distention which could suggest bladder outlet obstruction. Cholelithiasis without evidence for cholecystitis. Extensive distal colonic diverticulosis without evidence of diverticulitis. 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 Continue IV fluids. Calcium is improving. Continue to monitor with IV fluids and off of calcium and vitamin D. Dr. Gilliam, oncologist consulted. He recommends biopsy. I did call and talk with Dr. Warren, radiologist and he thinks the renal mass would be the safest to biopsy. Will biopsy greater than 12 hours after last heparin subcutaneous dose. We'll check INR and PTT prior. We'll consult orthopedics regarding right clavicular fracture. Monitor Accu-Cheks and give insulin as needed Continue with Bruce catheterization for urinary retention MiraLAX for constipation Repeat CBC, BMP and calcium in a.m. Continue atenolol and lisinopril PT and OT consult Stop aspirin and heparin for now. SCDs for DVT prophylaxis. 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-kidney mass biopsied and results are pending Bone survey shows multiple lytic possible metastatic lesions Hypercalcemia in a patient with probable cancer with bony metastases who was also on calcium and vitamin D replacement-calcium improving on IV fluids and off of calcium and vitamin D Falls with generalized weakness 30 pound weight loss Right clavicular fracture -possibly pathologic Acute kidney injury-improving with IV fluids and Bruce catheter Urinary retention-continue with Bruce catheterization for now, hopefully will improve with treatment of constipation Constipation -had Dulcolax suppositories, check for rectal impaction, may need KUB Type 2 diabetes mellitus-blood sugars currently well controlled but IV steroids started today. Will start home Lantus and NovoLog Coronary artery disease-asymptomatic Hypertension-fair control on atenolol, lisinopril is on hold for acute kidney injury Hyperlipidemia-statin is currently on hold, consider restarting soon Plan Continue IV fluids, but at lower rate for acute kidney injury and hypercalcemia Monitor Accu-Cheks and restart home insulin Continue with Bruce catheterization for urinary retention MiraLAX for constipation, add Dulcolax suppositories, check for rectal impaction , possible KUB Repeat lab in the morning Continue atenolol. Lisinopril on hold PT and OT consult SCDs for DVT prophylaxis. 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 MRI of the brain indicated a 6 mm lesion of the left basal ganglia lesion consistent with metastatic lesion Appreciate oncology evaluation and treatment recommendation by Dr Gilliam Continue with sling for support of right clavicle fracture. Continue to monitor blood sugars as they have been elevated. This may be secondary to steroids. Continue with Lantus 30 units and Novolog 10 unit with meals. WBC count elevated likely also related to Decadron Bruce cath for urinary retention. Hypercalcemia continues to improve on IV fluids. Continue to follow. Continue to monitor blood pressures as they are intermittently elevated. Lisinopril on hold. Continue Atenolol. CHRIS GILLIAM 08/10/16 6243: Assessment & Plan Assessment Patient examined, chart reviewed, agree with documentation by Bettye Stein. I participated in the development of the plan of care of this patient. Discussed care with Dr. Bearden. He will be going home today on dexamethasone. He will begin radiation therapy on Saturday. We'll plan on systemic therapy at completion of radiation therapy. We'll schedule follow-up when he is in the office on Saturday. EMILY STEIN APRN August 10, 2016 10:39 CHRIS GILLIAM August 10, 2016 17:59
--- NOTE | 2016-08-10 14:34 | NUR ---
status Pt A/O x3 with confusion. V/S stable on RA. N.O. to replace ndiaye back R/T retention, bladder scan shows 999, pt tolerated well. Eating and drinking well, no N/V. PT in to walk with pt in halls, denies dizziness or SOA. Pt stating his shoulder pain tolerable and did not need PRN meds at this time.
[2016-08-10 15:38] VITALS: BP 146/66; PULSE 57; RESP 18; O2SAT 94
[2016-08-10] MEDS ORDERED: DEXA4TAB PO (16:09)
[2016-08-10] MEDS ORDERED: PANT40TA27 PO (16:09)
[2016-08-10] MEDS ORDERED: TAMS-1 PO (16:09)
[2016-08-10] MEDS ORDERED: HYDR-4246 PO (16:09)
[2016-08-10] MEDS ORDERED: POLY17PO18 PO (16:09)
--- NOTE | 2016-08-10 18:15 | NUR ---
DC Pt DC to home, ndiaye to continue, gave teaching on using leg bag and cleaning. DC instructions given to , no questions at this time. IV site taken out and cath tip intact. Pt dressed and taken to front door via WC, all belonging with.
--- NOTE | 2016-08-10 21:09 | DSPDOC ---
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, bone and brain, Hypercalcemia, Possible pathologic fracture of right clavicle, diabetes, Urinary retention requiring catheterization on discharge, Acute kidney injury-resolved, Coronary artery disease, Hypertension, 30 pound weight loss, Falls with generalized weakness, Mild Encephalopathy-likely secondary to brain metastasis, Echocardiogram showed moderate pulmonary hypertension with estimated PA pressure of [address]-guided right renal mass biopsy on 08/06/2016 pathology did show renal cell carcinoma, clear-cell type- Laboratory Item Value Date Time Calcium Level 10.5 MG/DL H 08/10/16 0429 Calcium Level 13.1 MG/DL *H 08/05/16 2120 Laboratory Tests Test 08/09/16 11:00 08/09/16 17:31 08/09/16 20:47 08/10/16 04:29 Glucometer 244mg/dL (75-110) 121mg/dL (75-110) 166mg/dL (75-110) White Blood Count 16.2T/MM3 (4.5-11.0) Red Blood Count 3.69M/MM3 (4.50-5.90) Hemoglobin 10.8GM/DL (13.5-17.5) Hematocrit 32.6% (41-53) Mean Corpuscular Volume 88.3UM3 (80-100) Mean Corpuscular Hemoglobin 29.3UUG (26-34) Mean Corpuscular Hemoglobin Concent 33.1GM/DL (31-37) RDW Standard Deviation 39.2FL (36.9-50.2) Platelet Count 219T/MM3 (130-400) Mean Platelet Volume 10.3UM3 (9.4-12.4) Neutrophils % (Manual) 99.0% (33-66) Monocytes % (Manual) 1.0% (0-9.0) Absolute Neutrophils (Manual) 16.0T/MM3 (1.8-7.7) Monocytes # (Manual) 0.2T/MM3 (0-0.8) Red Cell Morphology Comment Normal Turbidity < 20 (0-20) Sodium Level 137MEQ/L (134-144) Potassium Level 4.4MEQ/L (3.6-5) Chloride Level 102MEQ/L (98-107) Carbon Dioxide Level 27MEQ/L (22-30) Anion Gap 8MEQ/L (5-15) Blood Urea Nitrogen 33.0MG/DL (9-20) Creatinine 1.1MG/DL (0.8-1.5) Glomerular Filtration Rate Calc 65 BUN/Creatinine Ratio 30RATIO (6-26) Glucose Level 124MG/DL (75-110) Calculated Osmolality 272MOSM/KG (261-280) Calcium Level 10.5MG/DL (8.4-10.2) Icterus Index < 2 (0-7) Chemistry Specimen Hemolysis < 15 (0-25) Test 08/10/16 06:22 08/10/16 11:10 08/10/16 16:51 Glucometer 114mg/dL (75-110) 146mg/dL (75-110) 116mg/dL (75-110) Radiology Echocardiogram IMPRESSION 1. Normal LV systolic function with ejection fraction of 70%. 2. Left atrial dilation. 3. Mild left ventricular dilation. 4. Mild mitral regurgitation. 5. Mild tricuspid regurgitation with moderate pulmonary hypertension with estimated pulmonary artery systolic pressure of 50. CT thoracic spine shows no bony metastases. CT lumbar spine shows lytic foci of skeletal metastasis in the ilium bilaterally. No definite spinal metastasis or acute appearing compression fracture. Cervical spine shows no acute traumatic abnormality of the cervical spine. Advanced degenerative disc disease and mild diffuse posterior facet adenopathy. No clear subluxation. Probable pathologic fracture of the medial right clavicle. Right Shoulder x-ray shows innumerable pulmonary metastasis. No definite skeletal metastasis to the right shoulder. No dislocation or bony destructive process. Right Humeral x-ray shows no acute osseous abnormality. CT chest, abdomen and pelvis Chest: There are innumerable pulmonary metastases diffusely spread throughout both lungs. There is no clear mediastinal or hilar adenopathy. No definite metastasis to the thoracic spine or included ribs. No pleural effusion. Heart size is normal. No pericardial effusion. CT ABDOMEN: There is a neck cephalic mass projecting posteriorly from the right kidney suspicious for a primary renal carcinoma. No definite hydronephrosis. There is mild bilateral perinephric stranding. There are some vascular calcifications centrally within both kidneys. No definite nonobstructing urinary calculus. The liver, spleen, pancreas, and adrenal glands are unremarkable in contour. The gallbladder is filled with hyperdense material suggesting gallstones. There is moderate calcification of the abdominal aorta without aneurysmal dilation. No definite retroperitoneal or mesenteric adenopathy. There is no retroperitoneal or mesenteric adenopathy. No definite bony metastasis to the lumbar spine. CT PELVIS: The urinary bladder is moderately distended. There is extensive colonic diverticulosis without evidence of diverticulitis. The prostate gland is heterogeneously enlarged. The seminal vesicles are not enlarged. There is no pelvic sidewall adenopathy. No free fluid. There are a few sclerotic bony foci and lytic foci suspicious for bony pelvic metastases. IMPRESSION: Innumerable pulmonary metastasis with a few osseous metastases and suspicious mass in the right kidney suspicious for primary renal carcinoma. This could also represent prostate carcinoma. Moderate urinary bladder distention which could suggest bladder outlet obstruction. Cholelithiasis without evidence for cholecystitis. Extensive distal colonic diverticulosis without evidence of diverticulitis. MRI brain 1. Small 6 mm enhancing lesion in left basal ganglia compatible with early metastatic lesion. 2. Extensive chronic appearing deep matter ischemic change throughout deep white matter. No acute ischemic change on diffusion weighted imaging. 3. Small punctate hyperintensity posteriorly in left occipital lobe on DWI imaging but shows no gadolinium enhancement and may be artifactual. MRI lumbar spine 1. Small 6 mm enhancing lesion in left basal ganglia compatible with early metastatic lesion. 2. Extensive chronic appearing deep matter ischemic change throughout deep white matter. No acute ischemic change on diffusion weighted imaging. 3. Small punctate hyperintensity posteriorly in left occipital lobe on DWI imaging but shows no gadolinium enhancement and may be artifactual. Metastatic series-osseous survey IMPRESSION: 1. There are several lucencies/lytic lesions demonstrated within the right and left upper extremities vertically involving the proximal bilateral humeral heads and distal right radius as well as the distal left clavicle. Findings are highly suspicious for a lytic process/metastases. 2. There are couple lucent/lytic lesions demonstrated within the calvarium also suspicious for a lytic process/metastases. History of Present Illness This is a 80-year-old male that has had increasing weakness for the past 2-3 weeks. The patients had 3-4 episodes of falling. Patient clearly losing his balance. The patient fell it sounds like 1 week ago. Landed on his right shoulder. Patient had persistent middle back pain and shoulder pain since then. Patient presents to the emergency department because of persistent weakness and falling. Workup in the emergency department is very disturbing for what appears to be metastatic widely cancer. Patient had a CT of the head which was unremarkable. Patient had a CT of the C-spine and thoracic spine. This demonstrated evidence of metastatic disease in the lungs bilaterally, liver , and kidney. Patient also had a fractured clavicle at right medial clavicle. At this time of admission the patients calcium was found to be elevated at 13. He has actually been declining since May. He has some episodes of confusion. Falls are definitely concerned for [employer] event. Hospital Course Patient was admitted 08/06/2016 due to weakness and falls. He was found to have a right clavicular fracture which was possibly metastatic. Radiology studies did reveal what appeared to be metastatic disease in the lungs. Dr. Gilliam was consulted for probable metastatic kidney cancer. Further radiologic workup as described above unfortunately showed a large right renal mass and what appeared to be metastatic disease to the bones and lungs. Further workup showed metastasis to the brain. The patient underwent CT-guided right kidney biopsy and pathology did reveal a renal cell carcinoma. The patient was evaluated by radiation oncology and it was felt that the patient would benefit from radiation therapy. Radiation is planned to start on June 13 and he is scheduled to receive 16 treatments. The patient was started on dexamethasone to help control edema from his metastatic cancer. He was having some behavioral changes and it was thought that the dexamethasone may help in this regard. Physical therapy was consulted and the patient was up and walking fairly well but was noted to be at risk for falls. The patient was using a sling for his right clavicular fracture. He had fairly good pain control on low-dose Temple. The patient was given his usual supplemental insulin and blood sugars were fairly well controlled despite the addition of dexamethasone. Regarding hypercalcemia, his oral calcium and vitamin D were discontinued. Calcium levels did come down with IV fluid rehydration. Regarding acute kidney injury on admission, he was found to have urinary retention and a Bruce catheter was placed. The patient was given IV fluid rehydration and renal function did improve. The patient was noted to have constipation and this was treated with MiraLAX and Dulcolax suppositories. A trial of Bruce removal was unsuccessful and the patient had significant urinary retention requiring the Bruce to be replaced. Flomax was initiated at discharge. The patient's appetite did improve over the hospital course and he was eating and drinking well. Lisinopril and trazodone were not restarted. The patient is to continue on dexamethasone 4 mg by mouth 3 times a day. A 14 day prescription was given to the patient and Dr. Gilliam can decide if this should be given for a longer period of time. The patient's blood pressure was mildly elevated on his usual home atenolol and off of lisinopril. Hopefully, the addition of Flomax will not cause significant orthostasis. The patient is to be discharged with a Bruce catheter and should follow-up with Dr. Reyez. Dr. Reyez can decide whether a trial of removal of Bruce catheter can be considered in the future versus referral to urology. On the day of discharge the patient was alert and mildly confused. He is very pleasant. Chest is clear to auscultation. Cardiovascular reveals a regular rate and rhythm. Abdomen is soft and nontender. Extremities are free of edema. Right arm is in a sling and pain appears to be well controlled. He was up walking with physical therapy and walked approximately 400 feet most of the time just carrying his cane. He will need 24-hour supervision by his . He is to be up with standby assist. The patient's is aware that he is at increased risk for falls in part secondary to impulsivity. It was elected not to pursue discharge to inpatient rehabilitation or penitentiary unit since he would not be able to undergo radiation therapy if he were admitted to penitentiary or rehabilitation. Greater than 30 minutes of time was spent arranging discharge on discharge day. I did call and discussed discharge plans with Dr. Reyez. Problems: Code Status Full Code Home Meds Active Scripts Tamsulosin HCl (Flomax) 0.4 Mg Capsule, 0.4 MG PO HS for 30 Days, #30 CAP Take 1 capsule, by mouth, one time a day at BEDTIME. Prov:LYDIA BEARDEN MD 08/10/16 Dexamethasone (Dexamethasone) 4 Mg Tablet, 1 TAB PO TID for 14 Days, #42 TAB Prov:LYDIA BEARDEN MD 08/10/16 Polyethylene Glycol 3350 (Healthylax) 17 Gm Powd.pack, 17 G PO BID, #5 BOTTLE Prov:LYDIA BEARDEN MD 08/10/16 Pantoprazole Sodium (Pantoprazole Sodium) 40 Mg Tablet., 40 MG PO ACB, #30 TAB Prov:LYDIA BEARDEN MD 08/10/16 Hydrocodone/Acetaminophen (Temple 5-325 Tablet) 5-325 Tablet, 1 TAB PO Q6H Y for PAIN, #30 TAB Prov:LYDIA BEARDEN MD 08/10/16 Reported Medications Multivit-Min/FA/Lycopen/Lutein (Centrum Silver Men Tablet) 1 Each Tablet, 1 TAB PO DAILY 08/05/16 Folic Acid (Folic Acid) 0.4 Mg Tablet, 0.4 MG PO DAILY 08/05/16 Ascorbic Acid (Vitamin C) 500 Mg Tablet, 500 MG PO DAILY 08/05/16 Cyanocobalamin (Vitamin B-12) (Vitamin B12) 5,000 Mcg Tab.rapdis, 5000 MCG PO DAILY 08/05/16 Pyridoxine HCl (Pyridoxine HCl) 50 Mg Tablet, 50 MG PO DAILY 08/05/16 Thiamine HCl (Vitamin B-1) 250 Mg Tablet, 250 MG PO DAILY 08/05/16 Insulin Glargine,Hum.rec.anlog (Lantus) 100 Unit/Ml Inj, 30 UNIT SQ HS 08/05/16 Insulin Aspart (Novolog) 100 Unit/Ml Inj, 5-10 UNIT SQ TIDWM 08/05/16 Atorvastatin Calcium (Atorvastatin Calcium) 40 Mg Tablet, 40 MG PO HS 08/05/16 Aspirin (Aspir-Low) 81 Mg Tablet.dr, 81 MG PO HS 08/05/16 Atenolol (Atenolol) 25 Mg Tablet, 25 MG PO HS 08/05/16 Nitroglycerin (Nitrostat) 0.4 Mg Tablet, 0.4 MG PO Q5MIN Y for CHEST PAIN 08/05/16 Discontinued Reported Medications Cholecalciferol (Vitamin D3) (Vitamin D) 400 Unit Capsule, 400 UNIT PO DAILY 08/05/16 Vitamin E (Vitamin E) 200 Unit Capsule, 200 UNIT PO DAILY 08/05/16 Trazodone HCl (Trazodone HCl) 50 Mg Tablet, 50 MG PO HS 08/05/16 Lisinopril (Lisinopril) 40 Mg Tablet, 40 MG PO HS 08/05/16 Face to Face Encounter I met with patient on the day of dismissal and discussed follow up appointments , medications, and safety plan. Discharge Disposition Dismiss to home with in stable condition Copies To 1: ALEXEI EVANS MD; CHRIS GILLIAM; MISHA REYEZ MD, STEPHANIE L MD August 10, 2016 20:56
--- NOTE | 2016-08-14 12:56 | NUR ---
SALINAS NIÑO RECEIVED CALL FROM PT , PT IS NOW REQUESTING HOME HEALTH. SALINAS LEFT MESSAGE FOR SUSANNA STYLES [facility] REGARDING CURRENT NEED.
== END 2016-08-10 18:00 | disposition home or self-care (01) | DRG 687 ==
LOC: ED 19:29 → EDHOLD 22:42 → MED 23:50
PROVIDERS: ADMIT Emergency Medicine; ATTEND Internal Medicine
PROC: 0TB03ZX Excision of Right Kidney, Percutaneous Approach, Diagnostic (ICD-10-PCS; principal; 2016-08-06)
DX: C64.1 Malignant neoplasm of right kidney, except renal pelvis (principal); C79.31 Secondary malignant neoplasm of brain; C78.02 Secondary malignant neoplasm of left lung; C78.01 Secondary malignant neoplasm of right lung; C79.51 Secondary malignant neoplasm of bone; N17.9 Acute kidney failure, unspecified; G13.1 Other systemic atrophy primarily affecting central nervous system in neoplastic disease; E83.52 Hypercalcemia; E11.9 Type 2 diabetes mellitus without complications; S42.011A Anterior displaced fracture of sternal end of right clavicle, initial encounter for closed fracture; R53.1 Weakness; I25.10 Atherosclerotic heart disease of native coronary artery without angina pectoris; R33.9 Retention of urine, unspecified; I27.2 Other secondary pulmonary hypertension; E78.5 Hyperlipidemia, unspecified; Z91.81 History of falling; Z79.82 Long term (current) use of aspirin; Z79.4 Long term (current) use of insulin; Z95.1 Presence of aortocoronary bypass graft
CPT/HCPCS: 36415; 47000; 51702; 80048; 80053; 80069; 81003; 82948; 83615; 83690; 83735; 84443; 84484; 85007; 85025; 85027; 85610; 85730; 88305; 88341; 88342; 93005; 93306

== ENCOUNTER 2016-08-13 03:39 | Emergency (ER) | payer MEDICARE, OTHER ==
[~2016-08-13] VITALS: Ht 177.8 cm; Wt 96.4 kg
[~2016-08-13 03:39] MED LIST: ASCO500T9 PO; ASPI81TA43 PO; ATEN25TA PO; ATOR40TA64 PO; CYAN50008 PO; DEXA4TAB PO; FOLI0.4T2 PO; HYDR-4246 PO; INSU100V13 SQ; INSU100V8 SQ; MULT-1274 PO; NITR0.4T PO; PANT40TA27 PO; POLY17PO18 PO; PYRI50TA PO; TAMS-1 PO; THIA250T6 PO
--- OUTSIDE RECORDS SUMMARY | 2016-08-13 03:44 | XMS REPORT | Continuity of Care Document ---
Author Author [facility] Organization [facility] Address Unknown Phone Unavailable Allergies Active Description Code Type Severity Reaction Onset Reported/Identified Relationship to Patient Clinical Status Yes No Known Allergies NKMA N/A N/A 09/21/2013 Medications Problems Procedures Results Encounters ACCT No. Visit Date/Time Discharge Status Pt. Type Provider Facility Loc./Unit Complaint [id number] 06/25/2013 14:34:00 06/25/2013 23 :59:59 CLS Outpatient
--- OUTSIDE RECORDS SUMMARY | 2016-08-13 03:44 | XMS REPORT | Continuity of Care Document ---
Author Author [facility] Organization [facility] Address Unknown Phone Unavailable Support Name Relationship Address Phone ZELALEM OCASIO MD Caregiver [address] [place] [address] Unavailable RACHAEL PEARSON MD Caregiver [address] [facility] [place] [address] Unavailable JOSE YOUNG DO Caregiver [address] [place] [address] Unavailable MISHA REYEZ MD Caregiver [address] [place] [address] Unavailable TANVI ICD Next Of Kin [address] [place], [place] [id number] Insurance Providers Guarantor Mason Cid Address [address] [place] [phone] Email DENIED 16 Payer Medicare Policy Number [id number] Subscriber's Name Mason Cid Relationship 18 Self Effective Date 02 Payer [facility] Medicare Supp Wps Policy Number [id number] Subscriber's Name Mason Cid Relationship 18 Self Advance Directives Directive Response Recorded Date/Time Ordered Resuscitation Status Full Code 08/05/16 10:44pm Resuscitation Documents on File No 08/06/16 12:40am DPOA for Healthcare Only No 08/06/16 5:33pm Living Will Yes 08/06/16 12:40am Problems Active Problems Medical Problem Onset Date Status CAD (coronary artery disease) Unknown Closed right clavicular fracture Unknown Acute DM2 (diabetes mellitus, type 2) Unknown Dyslipidemia Unknown Past Problems Medical Problem Onset Date Metastatic cancer Unknown Medications Current Home Medications Medication Dose Units Route Directions Days Qty Instructions Start Date Ascorbic Acid (Vitamin C) 500 Mg Tablet 500 Mg Oral Daily Aspirin (Aspir-Low) 81 Mg Tablet. 81 Mg Oral Bedtime 08/05/16 Atenolol 25 Mg Tablet 25 Mg Oral Bedtime 08/05/16 Atorvastatin Calcium 40 Mg Tablet 40 Mg Oral Bedtime 08/05/16 Cyanocobalamin (Vitamin B-12) (Vitamin B12) 5,000 Mcg Tab.rapdis 5,000 Mcg Oral Daily 08/05/16 Dexamethasone 4 Mg Tablet 1 Tab Oral Three Times A Day 14 Days 42 Tablet 08/10/16 Folic Acid 0.4 Mg Tablet 0.4 Mg Oral Daily 08/05/16 Hydrocodone/Acetaminophen (Maitland 5-325 Tablet) 5-325 Tablet 1 Tab Oral Every 6 Hours as needed for Pain 30 Tablet 08/10/16 Insulin Aspart (Novolog) 100 Unit/Ml Inj 5-10 Unit Sub-Q Three Times Daily With Meals 08/05/16 Insulin Glargine,Hum.rec.anlog (Lantus) 100 Unit/Ml Inj 30 Unit Sub-Q Bedtime 08/05/16 Multivit-Min/Fa/Lycopen/Lutein (Centrum Silver Men Tablet) 1 Each Tablet 1 Tab Oral Daily 08/05/16 Nitroglycerin (Nitrostat) 0.4 Mg Tablet 0.4 Mg Oral Every 5 Minutes X 3 as needed for Chest Pain 08/05/16 Pantoprazole Sodium 40 Mg Tablet.dr 40 Mg Oral Before Breakfast 30 Tablet 08/10/16 Polyethylene Glycol 3350 (Healthylax) 17 Gm Powd.pack 17 G Oral Twice A Day 5 Bottle 08/10/16 Pyridoxine Hcl 50 Mg Tablet 50 Mg Oral Daily 08/05/16 Tamsulosin Hcl (Flomax) 0.4 Mg Capsule 0.4 Mg Oral Bedtime 30 Days 30 Capsule Take 1 capsule, by mouth, one time a day at BEDTIME. 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 Use cane as needed Follow Up Appointments: Follow up with Nacho POON in Dr Evans's office on 08/23/16 at 10:45 am for treatment of your left humerus fx. Please arrive 30 minutes ealry to allow for new patient paperwork to be completed prior to your appointment time. Follow up for radiation treatment Sunday 08/13 as scheduled. Follow up next week with Dr Reyez ON July AT 10:30AM Follow up next week with Dr Gilliam ON July AT 2:15PM Pending Lab / Results: No Pending Lab Patient Instructions: up with assist only The patient requires 24-hour supervision Wound/Incision Care: n/a Durable Medical Equipment: Bruce catheter. Last changed on 08/10/2016. Will need to be changed at least monthly. Pain Management/Treatment: norco Expected Signs/Symptoms: mild fatigue, mild memory problems Notify Physician If: Falls, uncontrolled pain, worsening confusion, shortness of breath, fever, lightheadedness, or if patient develops significant agitation or significant changes in behavior During Business Hours:: Please call the physician's office at [phone] After Business Hours:: Please call [phone] and have the monotype keyboard operator page the physician. Condition at time of discharge: Fair Plan of Care Discharge Date 08/10/16 6:00pm Disposition 01 DISCHARGED HOME, SELF-CARE Instructions/Education Provided Fall Prevention (DC) Prescriptions See Medication Section Additional Instructions/Education check blood sugars fasting and 2 hours after each meal and call your doctor if blood sugars are less than 70 or frequently greater than 250. Take a list of your blood sugars with you to your appointment with Dr reyez Care Plan and Goals See Discharge Instructions Section Functional Status Query Response Date Recorded Mobility Status Ambulatory August 10, 2016 4:20pm Assistive Devices Standard Walker August 10, 2016 4:20pm Activity Limitations Weakness Fatigue Pain August 10, 2016 4:20pm Feeding Ability Independent August 10, 2016 4:20pm Toileting Ability Independent August 10, 2016 4:20pm Grooming Ability Independent August 10, 2016 4:20pm Dressing Ability Independent August 10, 2016 4:20pm Driving Ability Dependent August 10, 2016 4:20pm Housework Ability Assist August 10, 2016 4:20pm Meal Preparation Ability Assist August 10, 2016 4:20pm Stair Climbing Ability Assist August 10, 2016 4:20pm Ability to complete ADL's impeded by Change in Cognition August 10, 2016 4:20pm Cognitive/Perceptual Impairments None August 10, 2016 4:20pm Visual Assistive Devices Glasses With patient August 08, 2016 11:54pm Preferred Method of Learning Reading August 08, 2016 11:54pm Allergies, Adverse Reactions, Alerts No known allergies. Immunizations Query Response on File Recorded Date/Time Hx Influenza Vaccination N Refuses 08/06/16 12:11am Hx Pneumococcal Vaccination No 08/06/16 12:11am Hx Influenza Vaccination N Refuses 08/06/16 12:11am Vital Signs Acute Vital Signs Vital Response Date/Time Temperature (Fahrenheit) 97.8 deg F (96.8 - 99.1) 08/10/2016 8:05am Temperature (Calculated Celsius) 36.04050 degrees C (36.0 - 37.3) 08/10/2016 8:05am Pulse Rate (adult) 57 bpm (60 - 100) 08/10/2016 3:38pm Respiratory Rate 18 breaths/min (10 - 20) 08/10/2016 3:38pm O2 Sat by Pulse Oximetry 94 % (90 - 100) 08/10/2016 3:38pm Oxygen Delivery Method Room Air 08/06/2016 9:00pm Oxygen Delivery Method Room Air 08/10/2016 3:38pm Oxygen Flow Rate 2.00 L/min 08/06/2016 3:55pm Blood Pressure 146/66 mm Hg 08/10/2016 3:38pm Blood Pressure Source Automatic Cuff 08/10/2016 3:38pm Height (Feet) 5 feet 08/10/2016 10:39am Height (Inches) 8.00 inches 08/10/2016 10:39am Weight (Kilograms) 96.400 kg 08/10/2016 8:04am Body Mass Index (BMI) 30.6 08/06/2016 12:05am Results Laboratory Results Test Name Result Units Flags Reference Collection Date/Time Result Date/ Time Comments White Blood Count 16.2 T/MM3 H 4.5-11.0 08/10/2016 4:08/10/2016 5: 06am Red Blood Count 3.69 M/MM3 L 4.50-5.90 08/10/2016 4:08/10/2016 5: 06am Hemoglobin 10.8 GM/DL L 13.5-17.5 08/10/2016 4:08/10/2016 5:06am Hematocrit 32.6 % L 41-53 08/10/2016 4:08/10/2016 5:06am Mean Corpuscular Volume 88.3 UM3 80-100 08/10/2016 4:08/10/2016 5: 06am Mean Corpuscular Hemoglobin 29.3 UUG 26-34 08/10/2016 4:2016 5:06am Mean Corpuscular Hemoglobin Concent 33.1 GM/DL 31-37 08/10/2016 4:08/10/2016 5:06am RDW Standard Deviation 39.2 FL 36.9-50.2 08/10/2016 4:08/10/2016 5 :06am Platelet Count 219 T/MM3 130-400 08/10/2016 4:08/10/2016 5:06am Mean Platelet Volume 10.3 UM3 9.4-12.4 08/10/2016 4:08/10/2016 5: 06am Neutrophils (%) (Auto) 71.7 % H 33-66 08/06/2016 4:08/06/2016 5: 22am Lymphocytes (%) (Auto) 16.4 % L 23-45 08/06/2016 4:08/06/2016 5: 22am Monocytes (%) (Auto) 9.9 % H 0-9.0 08/06/2016 4:08/06/2016 5:22am Eosinophils (%) (Auto) 1.8 % 0-4 08/06/2016 4:08/06/2016 5:22am Basophils (%) (Auto) 0.1 % 0-2 08/06/2016 4:08/06/2016 5:22am Immature Granulocyte % (Auto) 0.1 % 0.0-0.5 08/06/2016 4:49am 2016 5:22am Absolute Neutrophils (auto) 6.5 T/MM3 1.8-7.7 08/06/2016 4:49am 2016 5:22am Absolute Lymphocytes (auto) 1.5 T/MM3 1-4.8 08/06/2016 4:49am 2016 5:22am Absolute Monocytes (auto) 0.9 T/MM3 H 0-0.8 08/06/2016 4:49am 2016 5:22am Absolute Eosinophils (auto) 0.2 T/MM3 0-0.5 08/06/2016 4:49am 2016 5:22am Absolute Basophils (auto) 0.0 T/MM3 0-0.2 08/06/2016 4:4908/06/2016 5:22am Absolute Immature Granulocyte (auto 0.01 T/MM3 0.00-0.03 08/06/2016 4: 4908/06/2016 5:22am Neutrophils % (Manual) 99.0 % H 33-66 08/10/2016 4:08/10/2016 6: 37am Band Neutrophils % 2.0 % 0-6 08/09/2016 4:08/09/2016 6:41am Lymphocytes % (Manual) 7.0 % L 23-45 08/09/2016 4:08/09/2016 6: 41am Monocytes % (Manual) 1.0 % 0-9.0 08/10/2016 4:08/10/2016 6:37am Eosinophils % (Manual) 2.0 % 0-4 08/07/2016 4:46am 08/07/2016 6:22am Basophils % (Manual) 1.0 % 0-2 08/07/2016 4:46am 08/07/2016 6:22am Band Neutrophils # 0.3 T/MM3 08/09/2016 4:08/09/2016 6:41am Absolute Neutrophils (Manual) 16.0 T/MM3 H 1.8-7.7 08/10/2016 4:2903/2017 6:37am Lymphocytes # (Manual) 1.2 T/MM3 1-4.8 08/09/2016 4:10a08/09/2016 6: 41am Monocytes # (Manual) 0.2 T/MM3 0-0.8 08/10/2016 4:08/10/2016 6: 37am Eosinophils # (Manual) 0.2 T/MM3 0-0.5 08/07/2016 4:46am 08/07/2016 6: 22am Basophils # (Manual) 0.1 T/MM3 0-0.2 08/07/2016 4:46am 08/07/2016 6: 22am Red Cell Morphology Comment NORMAL 08/10/2016 4:08/10/2016 6: 37am Prothromb Time International Ratio 1.12 H 0.76-1.04 08/06/2016 10:08/06/2016 10:41am THERAPUTIC RANGE=2.00-3.00 FOR ANTI-THROMBOSIS THERAPUTIC RANGE=2.50-3.50 FOR IMPLANTED VALVE Activated Partial Thromboplast Time 28.5 SEC 24-36 08/06/2016 10:08/06/2016 10:41am Icterus Index < 2 0-7 08/10/2016 4:08/10/2016 5:03am Chemistry Specimen Hemolysis < 15 0-25 08/10/2016 4:08/10/2016 5 :03am 0-25: Specimen Exhibited No Hemolysis. Turbidity < 20 0-20 08/10/2016 4:08/10/2016 5:03am Sodium Level 137 MEQ/L 134-144 08/10/2016 4:08/10/2016 5:03am Potassium Level 4.4 MEQ/L 3.6-5 08/10/2016 4:08/10/2016 5:03am Chloride Level 102 MEQ/L 98-107 08/10/2016 4:08/10/2016 5:03am Carbon Dioxide Level 27 MEQ/L 22-30 08/10/2016 4:08/10/2016 5: 03am Anion Gap 8 MEQ/L 5-15 08/10/2016 4:08/10/2016 5:03am Blood Urea Nitrogen 33.0 MG/DL H 9-20 08/10/2016 4:08/10/2016 5: 03am Creatinine 1.1 MG/DL D 0.8-1.5 08/10/2016 4:08/10/2016 5:07am BUN/Creatinine Ratio 30 RATIO H 6-26 08/10/2016 4:08/10/2016 5: 03am Glomerular Filtration Rate Calc 65 08/10/2016 4:08/10/2016 5: 03am Glucose Level 124 MG/DL H 75-110 08/10/2016 4:08/10/2016 5:03am Calculated Osmolality 272 MOSM/KG 261-280 08/10/2016 4:08/10/2016 5:03am Calcium Level 10.5 MG/DL H 8.4-10.2 08/10/2016 4:08/10/2016 5:03am Phosphorus Level 2.7 MG/DL 2.5-4.5 08/08/2016 4:08/08/2016 6:02am Total Bilirubin 0.70 MG/DL 0.20-1.30 08/09/2016 4:08/09/2016 5: 04am Alkaline Phosphatase 76 U/L 38-126 08/09/2016 4:08/09/2016 5:04am Total Protein 5.7 G/DL L 6.3-8.2 08/09/2016 4:08/09/2016 5:04am Albumin 3.4 G/DL L 3.5-5.0 08/09/2016 4:08/09/2016 5:04am Globulin 2.3 G/DL L 2.4-3.6 08/09/2016 4:08/09/2016 5:04am Albumin/Globulin Ratio 1.5 RATIO 1.1-2.2 08/09/2016 4:08/09/2016 5 :04am Aspartate Amino Transf (AST/SGOT) 22 U/L 17-59 08/09/2016 4:2016 5:04am Alanine Aminotransferase (ALT/SGPT) 36 U/L 21-72 08/09/2016 4:01/2017 5:04am Troponin I < 0.012 ng/ml 0-0.12 08/05/2016 9:20pm 08/05/2016 9:48pm Troponin values with a difference of 55% increase from orginal troponin value represent a true biological DELTA value. (%increase Calc=Orginal Troponin value, divided by subsequent Troponin value, multiplied by 100) Lactate Dehydrogenase 341 U/L 313-618 08/09/2016 4:10am 08/09/2016 5: 04am Lipase 36 U/L 23-300 08/05/2016 9:20pm 08/05/2016 9:36pm Magnesium Level 1.9 MG/DL 1.6-2.3 08/09/2016 4:10am 08/09/2016 5:04am Thyroid Stimulating Hormone (TSH) 2.16 MIU/L 0.47-4.68 08/05/2016 9: 20pm 08/05/2016 11:56pm Urine Collection Type CLEANCATCH-MIDSTREAM 08/05/2016 9:33pm 2016 9:41pm Urine Color YELLOW YELLOW 08/05/2016 9:33pm 08/05/2016 9:41pm Urine Turbidity CLEAR CLEAR 08/05/2016 9:33pm 08/05/2016 9:41pm Urine Specific [place] 1.025 1.015-1.025 08/05/2016 9:33pm 2016 9:41pm Urine pH 5.5 5.0-8.0 08/05/2016 9:33pm 08/05/2016 9:41pm Urine Leukocyte Esterase NEGATIVE NEGATIVE 08/05/2016 9:33pm 2016 9:41pm Urine Nitrite NEGATIVE NEGATIVE 08/05/2016 9:33pm 08/05/2016 9:41pm Urine Protein NEGATIVE NEGATIVE 08/05/2016 9:33pm 08/05/2016 9:41pm Urine Glucose (UA) TRACE A NEGATIVE 08/05/2016 9:33pm 08/05/2016 9: 41pm Urine Ketones NEGATIVE NEGATIVE 08/05/2016 9:33pm 08/05/2016 9:41pm Urine Urobilinogen 0.2 EU/DL NORMAL 08/05/2016 9:33pm 08/05/2016 9: 41pm Urine Bilirubin NEGATIVE NEGATIVE 08/05/2016 9:33pm 08/05/2016 9: 41pm Urine Blood NEGATIVE NEGATIVE 08/05/2016 9:33pm 08/05/2016 9:41pm Urinalysis Comment MICROSCOPIC NOT IND. 08/05/2016 9:33pm 2016 9:41pm Glucometer 116 mg/dL H 75-110 08/10/2016 4:51pm 08/10/2016 5:05pm Name: MASON CID Unit #: [id number] : [id number] Sex: M Admit Date: 08/05/16 Loc / Svc: MED Discharge Date: DIAGNOSTIC IMAGING REPORT [id number]: ITS.REASON: cancer CT LIMITED, OR LOCALIZED F/U: Comparison: 08/05/2016 Technique: Patient scanned from the jaw through the top of the head. Dose reduction imaging technology and brain and bone window evaluation provided. Findings: No acute intracranial findings are noted. Generalized atrophy and deep white matter changes are noted. Bone window evaluation showed no acute bony findings. Visualized sinuses and mastoids are unremarkable. No pathologic adenopathy appreciated. Impression: No definitive acute findings appreciated. . Procedures No known history of procedures. Encounters Encounter Location Arrival/Admit Date Discharge/Depart Date Attending Provider Discharged Inpatient [facility] 08/05/16 10:42pm 08/10/16 6:00pm ZELALEM OCASIO MD
[2016-08-13 03:45] VITALS: Ht 177.8 cm; Wt 96.4 kg
--- NOTE | 2016-08-13 04:02 | ERPDOC ---
Departure Disposition Decision Date: August 13, 2016 Disposition Decision Time: 05:19 Disposition: 01 DISCHARGED HOME, SELF-CARE Impression Impression Impression: Primary Impression: Urinary retention Additional Impression: Constipation Constipation type: slow transit constipation Qualified Codes: K59.01 - Slow transit constipation Severity: Severe Condition: Improved Seen By: Physician only Referrals: MISHA REYEZ MD (Family) Patient Instructions: Bruce Catheter Placement and Care (ED) Problems/Meds/Labs Reviewed?: Yes Medications reviewed and manag: Yes Additional Instructions: Drink GoLYTELY solution 6-8 ounces every 15-30 minutes until adequate stool clearance is achieved See Dr. Reyez in 2-3 days for recheck of Bruce catheter Follow up care ordered?: Yes Mental Status: Alert HPI - Male General Stated Complaint: CATHETER PROBLEMS Time Seen by Provider: 03:44 Source: patient, family Exam Limitations: dementia HPI - Male Initial Comments Pt was recently diagnosed with metastatic Renal Cell CA with brain and bone mets. During hospitalization he developed constipation with urinary retention. Had Bruce place to relief and was getting stool relief with Miralax. Patient presents tonight with complaints of no urine output from his full catheter for at least 12 hours, and increasing constipation for the same amount of time. Patient is scheduled to see Dr. Reyez later today, for possible catheter removal, and after an extended somewhat convoluted conversation with the patient , he would like to try having the Bruce catheter removed at this time and see if he can urinate. Occurred At: home Onset: Gradual Duration: 12-24 hrs Severity/Quality: fullness Location: suprapubic Associated Symptoms: DENIES: abdominal pain, diaphoresis, dysuria, fever/chills , loss of bladder control, lower back pain, lumps, mass, nausea/vomiting, nocturia, polyuria, swelling, syncope, urinary frequency Hx of Similar Symptoms: Yes Allergies: Coded Allergies: No Known Allergies (Unverified , 08/06/16) Past History Patient Medical History Problem List Updates: Renal cell carcinoma with bone and brain metastasis Patient Surgical History CABG, T and a Past Medical History Metabolic: cancer, diabetes, hypercholesterolemia, hypertension Cardiac: CAD Surgical History Cardiac: cardiac bypass Family History Family PMH: FOUND: diabetes Vaccines Hx Influenza Vaccination: No (Refuses) Hx Pneumococcal Vaccination: No Social History Substance Use Type: does not use Alcohol Intake: none Review of Systems Constitutional Constitutional: DENIES: appetite decrease, appetite increase, chills, dizziness , fever, weakness ENMT Ears: DENIES: pain Hearing: DENIES: hearing loss, tinnitus Balance: DENIES: vertigo Mouth/Throat: DENIES: change in swallowing, change in voice, hoarsness, painful swallowing, sore throat Cardiovascular Cardiac: DENIES: chest pain, dyspnea on exertion Rhythm/Rate: DENIES: irregular beat, palpitations, tachycardia Vascular: DENIES: pedal edema Pulmonary Respiratory: DENIES: cough, dyspnea, pleuritic chest pain GI Upper Abdomen: DENIES: dysphagia, heartburn/indigestion, nausea, pain, vomiting Lower Abdomen: pain, DENIES: blood in stool, constipation, diarrhea General: DENIES: burning, dysuria, frequency, pain, urgency Male: retention Musculoskeletal General: DENIES: cramps, joint pain, joint swelling, pain, weakness Integumentary Skin: DENIES: rash, sores Neurological General: DENIES: headache, numbness, tingling, vertigo, weakness Psychiatric Psychiatric: DENIES: anxiety, depression, nervousness Physical Exam General General Nourishment: well nourished, well developed, appears stated age General Body Habitus: well groomed Vitals and Pain First Documented Vital Signs Date Time Temp Pulse Resp B/P Pulse Ox O2 Delivery O2 Flow Rate FiO2 08/13/16 03:45 98.3 82 20 187/76 94 Room Air Weight: Kilograms: Height (feet): 5 Height (inches): 8.00 Triage Pain Scale: RN VS reviewed by Provider: Yes Normal Exams: Head: Normocephalic w/o trauma Eyes: Pupils are PERRLA w/ EOMI, No scleral icterus, irritation, or foreign bodies noted ENMT: No facial trauma, nasal exudates, pharyngeal erythema, or exudates are noted Neck: Full range of motion, without adenopathy, JVD, bruits or thyromegaly Chest/Resp: Clear all navarro, with good airflow, and symmetry bilaterally CV: Regular rate and rhythm, without murmur or gallop, Pulses 2+ all extremities, capillary refill, <2 seconds all ext., no pedal edema noted Lymphatic: No lymphadenopathy, or lymphedema noted Musculoskeletal: No tenderness, or deformity noted, good range of motion, all extremities Integumentary: No rashes, hives, or bruising noted, hair and nails, without abnormality Neurologic: Patient is alert, and oriented, cranial nerves, motor/sensory/ cerebellar, exams w/o gross deficits, to observation Psychiatric: Patient exhibits, appropriate attention, emotion and affect Abdomen (brief) Abdominal Brief: FOUND: bowel normo active x4, soft, tender (suprapubic fullness with mild tenderness), NOT FOUND: distended, hepatosplenomegaly Comments Left lower quadrant fullness consistent with constipation Progress Results/Orders Orders Procedure Category Date Status Time Lidocaine Urojet PHA 08/13/16 Complete (Urojet) 05:00 Bruce (Ed) EDM 08/13/16 Transmitted 04:47 Catheter Needs FREEMAN 08/13/16 In Process Assessment 04:47 Bladder Scanner (Ed) EDM 08/13/16 Transmitted 04:47 Irrigate Bruce (Ed) EDM 08/13/16 Transmitted 04:47 Medications Current ED Medications Lidocaine HCl (Urojet) 20 ml O ONCE MM Last administered on 08/13/16t 05:04; Start 08/13/16 at 05:00; Stop 08/13/16 at 05:01; Status DC Progress Progress Bladder scanner showed greater than 1000 cc of urine in the bladder Brcue removed per patient request - patient will large blood clot that was pulled out with the catheter, however patient was unable to clear his urine after catheter removal. Larger diameter Rbuce catheter replaced using Urojet - patient had a 20 [place] Bruce catheter placed with complete evacuation of blood clot, and release of 1000 cc of urine Patient also sent home with GoLYTELY solution to drink 6-8 ounces 4 times hourly until good bowel movement is achieved LILIAN RAIN MD August 13, 2016 04:02
--- OUTSIDE RECORDS SUMMARY | 2016-08-13 04:06 | XMS REPORT | Continuity of Care Document ---
Author Author [facility] Organization [facility] Address Unknown Phone Unavailable Allergies Active Description Code Type Severity Reaction Onset Reported/Identified Relationship to Patient Clinical Status Yes No Known Allergies NKMA N/A N/A 09/21/2013 Medications Problems Procedures Results Encounters ACCT No. Visit Date/Time Discharge Status Pt. Type Provider Facility Loc./Unit Complaint [id number] 06/25/2013 14:34:00 06/25/2013 23 :59:59 CLS Outpatient
[2016-08-13] MEDS ORDERED: LIDOCAINE JELLY 2% 20ml UROJET MM ONE (05:00)
[2016-08-13] MEDS ORDERED: POLYETHYLENE GLYCOL PO ONE (05:30)
[2016-08-13 06:20] VITALS: BP 147/66; PULSE 82; RESP 18; TEMP 98.3; O2SAT 94
--- NOTE | 2016-08-13 06:20 | NUR ---
DEPART PT GIVEN DI FOR PALOMARES CATHETER PLACEMENT AND CARE, GO-SETHTESETH, F/U. VERBALIZE UNDERSTANDING. QUESTIONS ASKED/ANSWERED - DENIES FURTHER QUESTIONS/NEEDS AT THIS TIME. PERSONAL BELONGINGS GATHERED. PALOMARES IN PLACE AND DRAINING. PT ESCORTED TO ED EXIT - NO SIGN OF DISTRESS AT THIS TIME. TOTAL PALOMARES OUT PUT - 2100CC PRIOR TO DISMISSAL.
== END 2016-08-13 06:20 | disposition home or self-care (01) ==
LOC: ED 03:39
DX: T83.098A Other mechanical complication of other urinary catheter, initial encounter (principal); R33.9 Retention of urine, unspecified; K59.01 Slow transit constipation; Y73.1 Therapeutic (nonsurgical) and rehabilitative gastroenterology and urology devices associated with adverse incidents; Y92.009 Unspecified place in unspecified non-institutional (private) residence as the place of occurrence of the external cause
CPT/HCPCS: 51702; 99283; A9270

== ENCOUNTER 2016-08-26 22:52 | Emergency (ER) | payer MEDICARE, OTHER ==
[~2016-08-26] VITALS: Ht 177.8 cm; Wt 96.4 kg
--- OUTSIDE RECORDS SUMMARY | 2016-08-26 22:56 | XMS REPORT | Continuity of Care Document ---
Author Author [facility] Organization [facility] Address Unknown Phone Unavailable Support Name Relationship Address Phone LILIAN RAIN MD Caregiver [address] [place] [address] Unavailable MISHA REYZE MD Caregiver [address] [place] [address] Unavailable TANVI CID Next Of Kin [address] [place], [place] [id number] Insurance Providers Guarantor Mason Cid Address [address] [place] [address] Email DENIED 16 Payer Medicare Policy Number [id number] Subscriber's Name Mason Cid Relationship 18 Self Effective Date 02 Payer [employer] Medicare Supp Wps Policy Number [id number] Subscriber's Name Mason Cid Relationship 18 Self Advance Directives Directive Response Recorded Date/Time Advanced Directives Type None 08/13/16 3:45am Chief Complaint and Reason for Visit Chief Complaint Male Urogenital Problems Reason for Visit Urinary retention Constipation Problems Active Problems Medical Problem Onset Date Status CAD (coronary artery disease) Unknown Closed right clavicular fracture Unknown Acute DM2 (diabetes mellitus, type 2) Unknown Dyslipidemia Unknown Past Problems Medical Problem Onset Date Constipation Unknown Metastatic cancer Unknown Urinary retention Unknown Medications Current Home Medications Medication Dose Units Route Directions Days Qty Instructions Start Date Ascorbic Acid (Vitamin C) 500 Mg Tablet 500 Mg Oral Daily Aspirin (Aspir-Low) 81 Mg Tablet.dr 81 Mg Oral Bedtime 08/05/16 Atenolol 25 [...] Tablet 0.4 Mg Oral Daily 08/05/16 Hydrocodone/Acetaminophen ([place] 5-325 Tablet) 5-325 Tablet 1 Tab Oral [...] Problem Response Recorded Date/Time Onset Date Status Hx Alcohol Use No 08/13/2016 4:39am Not Applicable Not Applicable Has the pt used tobacco in the last 12 months No 08/06/2016 12:11am Not Applicable Not Applicable Query Response Start Date Stop Date Smoking Status Unknown if ever smoked Hospital Discharge Instructions No hospital discharge instructions. Plan of Care Discharge Date 08/13/16 6:20am Disposition 01 DISCHARGED HOME, SELF-CARE Condition at Discharge Improved Instructions/Education Provided Bruce Catheter Placement and Care (ED) Prescriptions See Medication Section Referrals MISHA REYEZ MD Address: [address] [place] [address] [phone] Additional Instructions/Education Drink GoLYTELY solution 6-8 ounces every 15- 30 minutes until adequate stool clearance is achieved See Dr. Reyez in 2-3 days for recheck of Bruce catheter Care Plan and Goals Physician Care Plan Problem: Urinary retention, constipation Goal: Follow up with primary care provider Instructions: Take medications and follow care plan as discussed/written Drink GoLYTELY solution 6-8 ounces every 15-30 minutes until adequate stool clearance is achieved See Dr. Reyez in 2-3 days for recheck of Bruce catheter Functional Status No functional status results. Allergies, Adverse Reactions, Alerts No known allergies. Immunizations Query Response on File Recorded Date/Time Hx Influenza Vaccination N Refuses 08/06/16 12:11am Hx Pneumococcal Vaccination No 08/06/16 12:11am Hx Influenza Vaccination N Refuses 08/06/16 12:11am Influenza Vaccine Hx NO 08/13/16 4:39am Vital Signs Acute Vital Signs Vital Response Date/Time Temperature (Fahrenheit) 98.3 deg F (96.8 - 99.1) 08/13/2016 6:20am Temperature (Calculated Celsius) 36.94381 degrees C (36.0 - 37.3) 08/13/2016 6:20am Pulse Rate (adult) 82 bpm (60 - 100) 08/13/2016 6:20am Respiratory Rate 18 breaths/min (10 - 20) 08/13/2016 6:20am O2 Sat by Pulse Oximetry 94 % (90 - 100) 08/13/2016 6:20am Oxygen Delivery Method Room Air 08/06/2016 9:00pm Oxygen Delivery Method Room Air 08/10/2016 3:38pm Oxygen Flow Rate 2.00 L/min 08/06/2016 3:55pm Blood Pressure 147/66 mm Hg 08/13/2016 6:20am Blood Pressure Source Automatic Cuff 08/10/2016 3:38pm Height (Feet) 5 feet 08/13/2016 3:45am Height (Inches) 10.00 inches 08/13/2016 3:45am Weight (Kilograms) 96.400 kg 08/13/2016 3:45am Body Mass Index (BMI) 30.0 08/13/2016 3:45am Results Laboratory Results Test Name Result Units [...] Granulocyte (auto 0.01 T/MM3 0.00-0.03 08/06/2016 4: 49am 08/06/2016 5:22am Neutrophils % (Manual) 99.0 % H 33-66 08/10/2016 4:2908/10/2016 6: 37am Band Neutrophils % 2.0 % 0-6 08/09/2016 4:10a08/09/2016 6:41am Lymphocytes % (Manual) 7.0 % L 23-45 08/09/2016 4:08/09/2016 6: 41am Monocytes % (Manual) 1.0 % 0-9.0 08/10/2016 4:2908/10/2016 6:37am Eosinophils % (Manual) 2.0 % 0-4 08/07/2016 4:46am 08/07/2016 6:22am Basophils % (Manual) 1.0 % 0-2 08/07/2016 4:46am 08/07/2016 6:22am Band Neutrophils # 0.3 T/MM3 08/09/2016 4:10a08/09/2016 6:41am Absolute Neutrophils (Manual) 16.0 T/MM3 H 1.8-7.7 08/10/2016 4:29am 03/2017 6:37am Lymphocytes # (Manual) 1.2 T/MM3 1-4.8 08/09/2016 4:10a08/09/2016 6: 41am Monocytes # (Manual) 0.2 T/MM3 0-0.8 08/10/2016 4:08/10/2016 6: 37am Eosinophils # (Manual) 0.2 T/MM3 0-0.5 08/07/2016 4:46am 08/07/2016 6: 22am Basophils # (Manual) 0.1 T/MM3 0-0.2 08/07/2016 4:46am 08/07/2016 6: 22am Red Cell Morphology Comment NORMAL 08/10/2016 4:08/10/2016 6: 37am Prothromb Time International Ratio 1.12 H 0.76-1.04 08/06/2016 10:m 08/06/2016 10:41am THERAPUTIC RANGE=2.00-3.00 FOR ANTI-THROMBOSIS THERAPUTIC RANGE=2.50-3.50 FOR IMPLANTED VALVE Activated Partial Thromboplast Time 28.5 SEC 24-36 08/06/2016 10:m 08/06/2016 10:41am Icterus Index < 2 0-7 08/10/2016 [...] CLEAR 08/05/2016 9:33pm 08/05/2016 9:41pm Urine Specific [place] 1.025 1.015-1.025 08/05/2016 9:33pm 2016 9:41pm Urine [...] mg/dL H 75-110 08/10/2016 4:51pm 08/10/2016 5:05pm Procedures No known history of procedures. Encounters Encounter Location Arrival/Admit Date Discharge/Depart Date Attending Provider Departed Emergency Room [facility] 08/13/16 3:39am 08/13/16 6: 20am LILIAN RAIN MD Discharged Inpatient [facility] 08/05/16 10:42pm 08/10/16 6:00pm ZELALEM OCASIO MD Recent Diagnosis
--- OUTSIDE RECORDS SUMMARY | 2016-08-26 22:57 | XMS REPORT | Continuity of Care Document ---
Author Author [facility] Organization [facility] Address Unknown Phone Unavailable Allergies Active Description Code Type Severity Reaction Onset Reported/Identified Relationship to Patient Clinical Status Yes No Known Allergies NKMA N/A N/A 09/21/2013 Medications Problems Procedures Results Encounters ACCT No. Visit Date/Time Discharge Status Pt. Type Provider Facility Loc./Unit Complaint [id number] 06/25/2013 14:34:00 06/25/2013 23 :59:59 CLS Outpatient
[2016-08-26 23:20] VITALS: TEMP 97.9; Ht 177.8 cm; Wt 96.4 kg
--- NOTE | 2016-08-27 01:26 | NUR ---
PROVIDER DR RAIN IN ROOM AT THIS TIME.
--- OUTSIDE RECORDS SUMMARY | 2016-08-27 01:27 | XMS REPORT | Continuity of Care Document ---
Author Author [facility] Organization [facility] Address Unknown Phone Unavailable Allergies Active Description Code Type Severity Reaction Onset Reported/Identified Relationship to Patient Clinical Status Yes No Known Allergies NKMA N/A N/A 09/21/2013 Medications Problems Procedures Results Encounters ACCT No. Visit Date/Time Discharge Status Pt. Type Provider Facility Loc./Unit Complaint [id number] 06/25/2013 14:34:00 06/25/2013 23 :59:59 CLS Outpatient
--- NOTE | 2016-08-27 01:40 | NUR ---
PALOMARES LEG BAG PT'S URINE LEG BAG IS REPLACED WITH NEW BAG AT THIS TIME BY MURALI MATOS RN.
--- NOTE | 2016-08-27 01:45 | ERPDOC ---
Departure Disposition Decision Date: August 27, 2016 Disposition Decision Time: 01:44 Disposition: 01 DISCHARGED HOME, SELF-CARE Impression Impression Impression: Primary Impression: Palomares catheter problem Encounter type: subsequent encounter Qualified Codes: T83.9XXD - Unspecified complication of genitourinary prosthetic device, implant and graft, subsequent encounter Severity: Mild Condition: Improved Seen By: Physician only Referrals: MISHA REYEZ MD (Family) Patient Instructions: Palomares Catheter Placement and Care (ED) Problems/Meds/Labs Reviewed?: Yes Medications reviewed and manag: Yes Additional Instructions: See Dr. Reyez or your primary provider next week. Follow up care ordered?: Yes Mental Status: Alert HPI - Male General Chief Complaint: Male Urogenital Problems Stated Complaint: PALOMARES,PAIN SITE,ABDOMINAL PAIN Time Seen by Provider: :21 Source: patient, family Exam Limitations: no limitations HPI - Male Initial Comments Leaking palomares bag. Also complains of fear of his palomares eroding his arteries or heart, and also ongoing hard stools. Pt was seen for the same complaint here two weeks ago and again by his pcp. He has ongoing urinary retention and chronic constipation. Occurred At: home Onset: Rapid Hx of Similar Symptoms: Yes Allergies: Coded Allergies: No Known Allergies (Unverified , 08/06/16) Past History Patient Surgical History CABG, T and a Past Medical History Metabolic: cancer, diabetes, hypercholesterolemia, hypertension Cardiac: CAD Surgical History Cardiac: cardiac bypass Family History Family PMH: FOUND: diabetes Vaccines Hx Influenza Vaccination: No (Refuses) Hx Pneumococcal Vaccination: No Social History Substance Use Type: does not use Alcohol Intake: none Review of Systems Constitutional Constitutional: DENIES: appetite decrease, appetite increase, chills, dizziness , fever, weakness ENMT Ears: DENIES: pain Hearing: DENIES: hearing loss, tinnitus Balance: DENIES: vertigo Mouth/Throat: DENIES: change in swallowing, change in voice, hoarsness, painful swallowing, sore throat Cardiovascular Cardiac: DENIES: chest pain, dyspnea on exertion Rhythm/Rate: DENIES: irregular beat, palpitations, tachycardia Vascular: DENIES: pedal edema Pulmonary Respiratory: DENIES: cough, dyspnea, pleuritic chest pain GI Upper Abdomen: DENIES: dysphagia, heartburn/indigestion, nausea, pain, vomiting Lower Abdomen: DENIES: blood in stool, constipation, diarrhea, pain General: DENIES: burning, dysuria, frequency, pain, urgency Musculoskeletal General: DENIES: cramps, joint pain, joint swelling, pain, weakness Integumentary Skin: DENIES: rash, sores Neurological General: DENIES: headache, numbness, tingling, vertigo, weakness Psychiatric Psychiatric: DENIES: anxiety, depression, nervousness Physical Exam General General Nourishment: well nourished, well developed, appears stated age, no acute distress General Body Habitus: well groomed Vitals and Pain Weight: Kilograms: Height (feet): 5 Height (inches): 10.00 Triage Pain Scale: RN VS reviewed by Provider: Yes Normal Exams: Head: Normocephalic w/o trauma Eyes: Pupils are PERRLA w/ EOMI, No scleral icterus, irritation, or foreign bodies noted ENMT: No facial trauma, nasal exudates, pharyngeal erythema, or exudates are noted Neck: Full range of motion, without adenopathy, JVD, bruits or thyromegaly Chest/Resp: Clear all navarro, with good airflow, and symmetry bilaterally CV: Regular rate and rhythm, without murmur or gallop, Pulses 2+ all extremities, capillary refill, <2 seconds all ext., no pedal edema noted Abdomen: Bowel sounds positive, soft, non-tender, non-distended, no hepatosplenomegaly, masses or bruits noted Lymphatic: No lymphadenopathy, or lymphedema noted Musculoskeletal: No tenderness, or deformity noted, good range of motion, all extremities Integumentary: No rashes, hives, or bruising noted, hair and nails, without abnormality Neurologic: Patient is alert, and oriented, cranial nerves, motor/sensory/ cerebellar, exams w/o gross deficits, to observation Psychiatric: Patient exhibits, appropriate attention, emotion and affect (brief) Comments Indwelling catheter, draining well. Progress Progress Progress Patient is given a new catheter bag in the ER, and instructed to continue his current regimen of stool softeners, increase his fluid intake by 2 glasses daily , and follow-up with his primary physician next week as scheduled LILIAN RAIN MD August 27, 2016 01:45
[2016-08-27 02:15] VITALS: BP 153/67; PULSE 64; RESP 16; O2SAT 98
--- NOTE | 2016-08-27 02:15 | NUR ---
DEPART PT IS DISCHARGED AT THIS TIME, INSTRUCTIONS ARE REVIEWED AND UNDERSTANDING IS VOICED. PT LEAVES VIA WHEELCHAIR WITH HIS WHO WILL TRANSPORT HIM HOME.
== END 2016-08-27 02:15 | disposition home or self-care (01) ==
LOC: ED 22:52
DX: T83.03 Leakage of urinary catheter (principal); Y73.1 Therapeutic (nonsurgical) and rehabilitative gastroenterology and urology devices associated with adverse incidents; K59.09 Other constipation

== ENCOUNTER → 2016-08-27 | Outpatient (CLI) | payer MEDICARE, OTHER ==
[2016-08-27 14:00] LABS: HCT - HEMATOCRIT 36.9 % (41-53); HGB - HEMOGLOBIN 12.3 GM/DL (13.5-17.5); MEAN CORPUSCULAR HGB 28.6 UUG (26-34); MEAN CORPUSCULAR HGB CONC(MCHC 33.3 GM/DL (31-37); MEAN CORPUSCULAR VOLUME 85.8 UM3 (80-100); MEAN PLATELET VOLUME 10.7 UM3 (9.4-12.4); WBC - WHITE BLOOD COUNT 14.7 T/MM3 (4.5-11.0)
[2016-08-27 14:11] LABS: ALBUMIN 3.4 G/DL (3.5-5.0); ALBUMIN/GLOBULIN RATIO 1.6 RATIO (1.1-2.2); ALKALINE PHOSPHATASE 100 U/L (38-126); ALT (SGPT) 45 U/L (21-72); ANION GAP 12 MEQ/L (5-15); AST (SGOT) 16 U/L (17-59); BUN/CREATININE RATIO 38 RATIO (6-26); CALCIUM 9.6 MG/DL (8.4-10.2); CHLORIDE 97 MEQ/L (98-107); CO2 - CARBON DIOXIDE 27 MEQ/L (22-30); CREATININE 1.2 MG/DL (0.8-1.5); GLOMERULAR FILTRATION RATE 59; GLUCOSE 226 MG/DL (75-110); LDH 435 U/L (313-618); MAGNESIUM 1.9 MG/DL (1.6-2.3); SODIUM 136 MEQ/L (134-144); TOTAL PROTEIN 5.5 G/DL (6.3-8.2)
[2016-08-27 14:14] LABS: BAND NEUTROPHILS # 0.3 T/MM3; LYMPHOCYTES # (MANUAL) 0.6 T/MM3 (1-4.8); MONOCYTES # (MANUAL) 0.4 T/MM3 (0-0.8); NEUTROPHILS #(MANUAL)-ABSOLUTE 13.4 T/MM3 (1.8-7.7); TOTAL CELLS COUNTED 100 %
== END ==
LOC: LAB 13:28
PROVIDERS: ATTEND Internal Medicine Hematology & Oncology
DX: C64.1 Malignant neoplasm of right kidney, except renal pelvis (principal); C79.31 Secondary malignant neoplasm of brain; C79.51 Secondary malignant neoplasm of bone
CPT/HCPCS: 36415; 80053; 83615; 83735; 85025

== ENCOUNTER 2016-09-08 19:03 | Inpatient (IN) ==
[2016-09-08] MEDS: NS 500 ML IV SCH (19:15)
--- NOTE | 2016-09-08 19:23 | Emergency Department Report ---
General Adult HPI - General Stated complaint: Hypotension Time Seen by Provider: 09/08/16 19:08 Source: patient, family, EMS - History of Present Illness HPI narrative: Patient is probably EMS for decreased level of consciousness increasing confusion and fatigue for one day. His called the paramedics venkata to bring him to the ER for evaluation. Patient was found to be hypotensive with blood pressure 50 over palp, this improved after 300 cc of saline in route. Patient has indwelling Ndiaye catheter, and often has problems with a catheter, and his family states that this is how he has active with urinary tract infection - Related Data Home Medications Medication Instructions Recorded Confirmed Aspirin [Aspir-Low] 81 mg PO HS #0 08/05/16 09/08/16 Atenolol 25 mg PO HS #0 08/05/16 09/08/16 Atorvastatin Calcium 40 mg PO HS #0 08/05/16 09/08/16 Folic Acid 0.4 mg PO DAILY #0 08/05/16 09/08/16 Insulin Aspart [NovoLOG] 5 - 10 unit SQ TIDWM #0 08/05/16 09/08/16 Insulin Glargine,Hum.rec.anlog 20 unit SQ HS #0 08/05/16 09/08/16 [Lantus] Nitroglycerin [Nitrostat] 0.4 mg PO Q5MIN3 PRN #0 08/05/16 09/08/16 Pyridoxine HCl (Vitamin B6) 50 mg PO DAILY #0 08/05/16 09/08/16 [Pyridoxine HCl] Cyanocobalamin (B-12) [Vit B-12] 500 mcg PO DAILY 09/08/16 09/08/16 Hydrocodone/APAP 5/325 [[place] 1 tab PO Q6H PRN 09/08/16 09/08/16 5/325] Lisinopril [Prinivil] 40 mg PO DAILY 09/08/16 09/08/16 Multivit-Min/FA/Lycopen/Lutein 1 tab PO DAILY 09/08/16 09/08/16 [Centrum Silver Men Tablet] Tamsulosin HCl [Flomax] 0.4 mg PO DAILY 09/08/16 09/08/16 Previous Rx's Medication Instructions Recorded Dexamethasone 1 tab PO TID 14 Days 08/10/16 Allergies Allergy/AdvReac Type Severity Reaction Status Date / Time No Known Allergies Allergy Verified 09/08/16 19:39 Review of Systems All systems: reviewed and negative except as stated Constitutional: Reports: weakness PFSH Patient Stated Medical History Hypertension Yes Myocardial Infarction Yes Diabetes Mellitus Type 2 Yes Other GI Yes: Weight Loss, Constipation, Diverticulosis Hx Incontinence Yes 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 Cardiac: cardiac bypass - Social History Smoking status: Never smoker Substance use type: does not use Alcohol intake frequency: does not drink Physical Exam - Limitations Limitations: no limitations - General General appearance: alert - Normal Exams: Head:: Normocephalic without trauma Eyes:: Pupils are PERRLA w/ EOMI, No scleral icterus, irritation, or foreign bodies noted ENMT:: No facial trauma, nasal exudates, pharyngeal erythema, or exudates are noted Neck:: Full range of motion, without adenopathy, JVD, bruits or thyromegaly Chest/Respirations:: Clear all navarro, with good airflow, and symmetry bilaterally Cardiovascular:: Regular rate and rhythm, without murmur or gallop, Pulses 2+ all extremities, capillary refill, <2 seconds all extremities Abdomen:: Bowel sounds positive, soft, non-tender, non-distended, no hepatosplenomegaly, masses or bruits noted Lymphatic:: No lymphadenopathy, or lymphedema noted Musculoskeletal:: No tenderness, or deformity noted, good range of motion, all extremities Integumentary:: No rashes, hives, or bruising noted, hair and nails, without abnormality Neurological:: Patient is alert, and oriented, cranial nerves, motor/sensory/ cerebellar, exams w/o gross deficits, to observation Psychiatric:: Patient exhibits, appropriate attention, emotion and affect Course Vital Signs Temperature 97.4 F 09/08/16 19:05 Pulse Rate 61 09/08/16 19:05 Respiratory Rate 18 09/08/16 19:05 Blood Pressure 108/51 09/08/16 19:05 Pulse Oximetry 94 09/08/16 19:05 Temperature 97.4 F 09/08/16 19:05 Pulse Rate 61 09/08/16 19:05 Respiratory Rate 18 09/08/16 19:05 Blood Pressure 108/51 09/08/16 19:05 Pulse Oximetry 94 09/08/16 19:05 Medical Decision Making - MDM Narrative Medical decision making narrative: Patient given 1 L normal saline IV fluid bolus CBC - N CMP - N EKG - normal sinus rhythm without ischemia, ectopy, or infarction. Troponin - N UA - negative except moderate white blood cells and bacteria, culture pending After one and a half hours in the ER, patient's blood pressure has normalized after 1 L of normal saline IV fluid bolus- his arrived, and stated that she sent the patient to the ER not because of urinary tract infection or weakness, but he comes he has had diarrhea for several days. Patient apparently has no clue that he's been having diarrhea and forgot. Case discussed with Dr. Dye, we'll admit inpatient for GI bleed/UTI and continue diagnostic as well as therapeutic's - Lab Data Result diagrams: 09/08/16 19:22 09/08/16 19:22 Lab Results 09/08/16 09/08/16 09/08/16 Range/Units 19:22 19:22 19:22 WBC 10.9 (4.5-11.0) T/MM3 RBC 3.56 L (4.50-5.90) M/MM3 Hgb 10.2 L (13.5-17.5) GM/DL Hct 31.3 L (41-53) % MCV 87.9 (80-100) UM3 MCH 28.7 (26-34) UUG MCHC 32.6 (31-37) GM/DL RDW Std Deviation 41.8 (36.9-50.2) FL Plt Count 136 (130-400) T/MM3 MPV 10.5 (9.4-12.4) UM3 Immature Gran % (Auto) Not performed Neut % (Auto) Not performed Lymph % (Auto) Not performed [place] % (Auto) Not performed Eos % (Auto) Not performed Baso % (Auto) Not performed Neut # Not performed Lymph # Not performed [place] # Not performed Baso # Not performed Abs Immat Gran (auto) Not performed Neutrophils % (Manual) 82.0 H (33-66) % Band Neutrophils % 13.0 H D (0-6) % Lymphocytes % (Manual) 5.0 L (23-45) % Neutrophils # (Manual) 8.9 H (1.8-7.7) T/MM3 Band Neutrophils # 1.4 T/MM3 Lymphocytes # (Manual) 0.5 L (1-4.8) T/MM3 RBC Morph Comment 1+ schistocytes Turbidity < 20.0 (0-20) Sodium 131 L D (134-144) MEQ/L Potassium 4.3 (3.6-5) MEQ/L Chloride 99 (98-107) MEQ/L Carbon Dioxide 24 (22-30) MEQ/L Anion Gap 8 (5-15) MEQ/L BUN 52.0 H* (9-20) MG/DL Creatinine 1.4 (0.8-1.5) MG/DL GFR Calculation 49 BUN/Creatinine Ratio 37 H (6-26) RATIO Glucose 216 H (75-110) MG/DL Calculated Osmolality 274 (261-280) MOSM/KG Calcium 9.2 (8.4-10.2) MG/DL Total Bilirubin 1.20 (0.20-1.30) MG/DL Conjugated Bilirubin 0.00 (0.00-0.30) MG/DL Unconjugated Bilirubin 0.90 (0.00-11.10) MG/DL Icterus Index < 2.0 (0-7) AST 15 L (17-59) U/L ALT 39 (21-72) U/L Alkaline Phosphatase 81 (38-126) U/L Troponin I < 0.012 (0-0.12) ng/ml Total Protein 4.5 L (6.3-8.2) G/DL Albumin 2.5 L (3.5-5.0) G/DL Globulin 2.0 L (2.4-3.6) G/DL Albumin/Globulin Ratio 1.3 (1.1-2.2) RATIO Procalcitonin 0.28 NG/ML Specimen Hemolysis < 15.0 (0-25) Ur Collection Type Urine Color (YELLOW) Urine Clarity Urine pH (5.0-8.0) Ur Specific [place] (1.015-1.025) Urine Protein (NEGATIVE) Urine Glucose (UA) (NEGATIVE) Urine Ketones (NEGATIVE) Urine Occult Blood (NEGATIVE) Urine Nitrate (NEGATIVE) Urine Bilirubin (NEGATIVE) Urine Urobilinogen (NORMAL) EU/DL Ur Leukocyte Esterase (NEGATIVE) Urine RBC (0-3) /HPF Urine WBC (0-5) /HPF Ur Squamous Epith Cells Triple Phos Crystals Amorphous Sediment Urine Bacteria (NEGATIVE) Ur Culture Indicated? Urinalysis Comment 09/08/16 Range/Units 20:50 WBC (4.5-11.0) T/MM3 RBC (4.50-5.90) M/MM3 Hgb (13.5-17.5) GM/DL Hct (41-53) % MCV (80-100) UM3 MCH (26-34) UUG MCHC (31-37) GM/DL RDW Std Deviation (36.9-50.2) FL Plt Count (130-400) T/MM3 MPV (9.4-12.4) UM3 Immature Gran % (Auto) Neut % (Auto) Lymph % (Auto) [place] % (Auto) Eos % (Auto) Baso % (Auto) Neut # Lymph # [place] # Baso # Abs Immat Gran (auto) Neutrophils % (Manual) (33-66) % Band Neutrophils % (0-6) % Lymphocytes % (Manual) (23-45) % Neutrophils # (Manual) (1.8-7.7) T/MM3 Band Neutrophils # T/MM3 Lymphocytes # (Manual) (1-4.8) T/MM3 RBC Morph Comment Turbidity (0-20) Sodium (134-144) MEQ/L Potassium (3.6-5) MEQ/L Chloride (98-107) MEQ/L Carbon Dioxide (22-30) MEQ/L Anion Gap (5-15) MEQ/L BUN (9-20) MG/DL Creatinine (0.8-1.5) MG/DL GFR Calculation BUN/Creatinine Ratio (6-26) RATIO Glucose (75-110) MG/DL Calculated Osmolality (261-280) MOSM/KG Calcium (8.4-10.2) MG/DL Total Bilirubin (0.20-1.30) MG/DL Conjugated Bilirubin (0.00-0.30) MG/DL Unconjugated Bilirubin (0.00-11.10) MG/DL Icterus Index (0-7) AST (17-59) U/L ALT (21-72) U/L Alkaline Phosphatase (38-126) U/L Troponin I (0-0.12) ng/ml Total Protein (6.3-8.2) G/DL Albumin (3.5-5.0) G/DL Globulin (2.4-3.6) G/DL Albumin/Globulin Ratio (1.1-2.2) RATIO Procalcitonin NG/ML Specimen Hemolysis (0-25) Ur Collection Type Urine, ndiaye chronic Urine Color Yellow (YELLOW) Urine Clarity Cloudy Urine pH >=9.0 A (5.0-8.0) Ur Specific [place] <=1.005 L (1.015-1.025) Urine Protein 3+ A (NEGATIVE) Urine Glucose (UA) 1+ A (NEGATIVE) Urine Ketones Negative (NEGATIVE) Urine Occult Blood 1+ A (NEGATIVE) Urine Nitrate Negative (NEGATIVE) Urine Bilirubin Negative (NEGATIVE) Urine Urobilinogen 1.0 (NORMAL) EU/DL Ur Leukocyte Esterase 3+ (NEGATIVE) Urine RBC None seen (0-3) /HPF Urine WBC 5-10 H (0-5) /HPF Ur Squamous Epith Cells None seen Triple Phos Crystals Many Amorphous Sediment Many Urine Bacteria 3+ H (NEGATIVE) Ur Culture Indicated? Cult not indicated Urinalysis Comment Cancelled Critical Care Time Critical Care Time: Yes Total Critical Care Time: 45 Attestation: She required initial fluid resuscitation with profound hypotension and tachycardia in the field. Patient also require close observation and monitoring throughout his ER visit to assure no decline Disposition Clinical Impression: Upper GI bleed, Urinary tract infection Disposition: 02 To [facility] [place] [place] Acute Care Condition: Improved Prescriptions: Continue Nitroglycerin [Nitrostat] 0.4 mg PO Q5MIN3 PRN #0 PRN Reason: CHEST PAIN Atenolol 25 mg PO HS #0 Aspirin [Aspir-Low] 81 mg PO HS #0 Atorvastatin Calcium 40 mg PO HS #0 Insulin Aspart [NovoLOG] 5 - 10 unit SQ TIDWM #0 Insulin Glargine,Hum.rec.anlog [Lantus] 20 unit SQ HS #0 Pyridoxine HCl (Vitamin B6) [Pyridoxine HCl] 50 mg PO DAILY #0 Folic Acid 0.4 mg PO DAILY #0 Dexamethasone 1 tab PO TID 14 Days Tamsulosin HCl [Flomax] 0.4 mg PO DAILY Hydrocodone/APAP 5/325 [Boaz 5/325] 1 tab PO Q6H PRN PRN Reason: Pain Multivit-Min/FA/Lycopen/Lutein [Centrum Silver Men Tablet] 1 tab PO DAILY Cyanocobalamin (B-12) [Vit B-12] 500 mcg PO DAILY Lisinopril [Prinivil] 40 mg PO DAILY Referrals: Anshul Long MD [Family Provider] - - Seen By: physician
[2016-09-08] MEDS: NS 1,000 ML IV SCH (20:45)
[2016-09-08] MEDS ORDERED: IOHEXOL 300mg/ml 75ml INJECTION ONE (20:52)
[2016-09-08] MEDS ORDERED: SALINE FLUSH 10ml SYRINGE ONE (20:52)
[2016-09-08] MEDS ORDERED: NS 0 ML ONE (20:52)
[2016-09-08] MEDS ORDERED: IODIXANOL 320mg/ml 100ml INJECTION IV ONE (21:14)
[2016-09-08] MEDS ORDERED: NS 100 ML ONE (21:15)
[2016-09-08] MEDS ORDERED: HYDROMORPHONE 2 MG/ML INJECTION IVP ONE (21:29)
[2016-09-08] MEDS ORDERED: PANTOPRAZOLE 40 MG INJECTION IVP ONE ×2 (22:11→23:05)
[2016-09-08] MEDS ORDERED: ONDANSETRON 4 MG/2 ML INJECTION IVP PRN (22:53)
[2016-09-08] MEDS ORDERED: NITROGLYCERIN 0.4 MG SUBLINGUAL TABLET SL PRN (23:09)
[2016-09-09] MEDS: MORPHINE SULFATE 4 MG SYRINGE IVP PRN ×2 (00:34→02:58)
--- NOTE | 2016-09-09 01:56 | History & Physical Report ---
History of Present Illness Date: 09/09/16 Chief complaint: weak, confused HPI: This is a 80 y/o male with a history of widely metastatic renal cell carcinoma who is undergoing both radiation therapy to his brain and chemotherapy. The patient has increased weakness and had a large black stool today. The patient is brought into the ED and had a CT of his abdomen which demonstrated the widely metastatic intraabdomen disease and diverticulosis but no other processes. The patient's labs demonstrated findings to suggest upper GI bleed and a WBC count of almost 11 thousand and a hemoglobin of 10.2 which is not significantly changed from his baseline. At this time the patient will be admitted for evaluation of an upper GI bleed. It is worth noting that upon arrival to the floor the patient's was interviewed and she stated that the patient has been working on entering hospice care. She does not want agressive treatment or evaluations undertaken at this point. Review of Systems Review of systems: patient is unable to provide states: no fever, generally weak. nausea/vomiting and dark stool noted. complains of abdomen pain. stools change as noted. no focal weakness, generally weak, - Constitutional Constitutional: Present: as per HPI PFSH Patient Stated Medical History Hearing Loss Yes Hypertension Yes Myocardial Infarction Yes Diabetes Mellitus Type 2 Yes Other GI Yes: Weight Loss, Constipation Hx Incontinence Yes Surgical History: CABG, T and a. Cardiac: cardiac bypass - Social History Smoking status: Never smoker Medications Home Medications Medication Instructions Recorded Confirmed Type Aspirin [Aspir-Low] 81 mg PO HS #0 08/05/16 09/08/16 History Atenolol 25 mg PO HS #0 08/05/16 09/08/16 History Atorvastatin Calcium 40 mg PO HS #0 08/05/16 09/08/16 History Folic Acid 0.4 mg PO DAILY #0 08/05/16 09/08/16 History Insulin Aspart [NovoLOG] 5 - 10 unit SQ TIDWM #0 08/05/16 09/08/16 History Insulin Glargine,Hum.rec.anlog 20 unit SQ HS #0 08/05/16 09/08/16 History [Lantus] Nitroglycerin [Nitrostat] 0.4 mg PO Q5MIN3 PRN #0 08/05/16 09/08/16 History Pyridoxine HCl (Vitamin B6) 50 mg PO DAILY #0 08/05/16 09/08/16 History [Pyridoxine HCl] Cyanocobalamin (B-12) [Vit B-12] 500 mcg PO DAILY 09/08/16 09/08/16 History Hydrocodone/APAP 5/325 [[place] 1 tab PO Q6H PRN 09/08/16 09/08/16 History 5/325] Lisinopril [Prinivil] 40 mg PO DAILY 09/08/16 09/08/16 History Multivit-Min/FA/Lycopen/Lutein 1 tab PO DAILY 09/08/16 09/08/16 History [Centrum Silver Men Tablet] Tamsulosin HCl [Flomax] 0.4 mg PO DAILY 09/08/16 09/08/16 History Allergies Allergy/AdvReac Type Severity Reaction Status Date / Time No Known Allergies Allergy Verified 09/08/16 19:39 Exam Vital Signs: Temp Pulse Resp BP Pulse Ox 97.4 F 61 18 122/57 100 09/08/16 23:20 09/08/16 23:20 09/08/16 23:20 09/08/16 23:20 09/08/16 23:20 Telemetry Rhythm: Sinus Rhythm Height: 1.77 m Weight: 83 kg Body Mass Index: 26.6 - Constitutional Present: mild distress - Routine HEENT Exam Head: Present: normocephalic, atraumatic Eye: Present: EOMI, conjunctivae pink ENT: Present: mucous membranes dry - Routine Neck Exam Present: full ROM - Routine Respiratory Exam Present: CTA bilaterally - Routine Cardiovascular Exam Present: RRR - Routine Abdominal Exam Present: soft, normoactive bowel sounds, tenderness, firm. Absent: distended, rigid - Routine Rectal Exam Visual: Present: black stool - Routine Extremities Exam Present: no edema, non tender, full ROM - Routine Skin Exam Present: intact - Routine Neurological Exam Absent: alert, oriented X3, motor deficit, altered mental status - Routine Psychiatric Exam Absent: normal affect, normal thought process (patient has dementia and cannot effectively participate with examination ) Results - Labs CBC & Chem 7: 09/08/16 23:29 09/08/16 19:22 Assessment and Plan (1) Upper GI bleed Current visit: Yes Status: Acute 09/09/16 02:02 This patient clearly presents with UGI bleed. The and I long discussion. Does not want transfusion. Does not want workup. AT this time IV PPI, repeat labs in the am. make comfortable and consult licensed clinical social worker in am to further address hospice wishes. (2) Urinary tract infection Current visit: Yes Status: Acute 09/09/16 02:03 will start rocephin tonight and consider further decision after hospice discussion (3) Normocytic anemia Current visit: Yes Status: Acute 09/09/16 02:03 obviously risk of worsening. as noted above does not feel she wants transfusion. Will repeat one more time and make further considerations at that time. very involved and can help with this decision. (4) Metastatic renal cell carcinoma to intra-abdominal site Current visit: Yes Status: Acute 09/09/16 02:04 widely metastatic including brain , bone, messentary. currently getting radiation therapy and chemo therapy. consult oncology in the am to further assist with end of life discussions. (5) DM type 2 (diabetes mellitus, type 2) Current visit: Yes Status: Acute 09/09/16 02:05 correctional plan only at this time. DVT Prophylaxis: SCD's GI Prophylaxis: Protonix Resuscitation Status: Do Not Resuscitate Sepsis Assessment - Focused Exam Vital Signs Temp Pulse Resp BP Pulse Ox 09/08/16 23:20 97.4 F 61 18 122/57 100 09/08/16 23:16 61 122/57 100 09/08/16 23:15 61 97 09/08/16 23:00 60 95 Hospital Course Summary Disclaimer: The visit summary below is not to be considered part of the above Progress Note.
[2016-09-09] MEDS: CEFTRIAXONE 1 G in NS 100 ML IV SCH (03:08)
[2016-09-09] MEDS: HYDROMORPHONE 2 MG/ML INJECTION IVP PRN ×2 (04:23→20:06)
[2016-09-09] MEDS ORDERED: MORPHINE SULFATE 2 MG SYRINGE IVP PRN (06:45)
[2016-09-09] MEDS: PANTOPRAZOLE 40 MG INJECTION IVP SCH ×2 (08:26→20:11)
--- NOTE | 2016-09-09 09:14 | XRay Report ---
Indication: bandemia PROCEDURE: XR chest 1V: Encounter: Initial Comparison: CT chest dated August 05, 2016 Findings: Diffuse pulmonary metastatic disease without obvious focal consolidative pneumonia. No pleural effusion or pneumothorax. Heart size and mediastinal contours are stable. Prior CABG. Impression: No focal pneumonia is seen. .
--- NOTE | 2016-09-09 09:24 | CT Scan Report ---
Indication: GI BLEED PROCEDURE: CT abdomen pelvis w con: Encounter: Initial Comparison: CT chest, abdomen and pelvis dated August 05, 2016 Technique: Axial CT images were performed through the abdomen and pelvis after the administration of intravenous contrast. Coronal and sagittal two-dimensional reformats. Automated Exposure Control and Iterative Reconstruction dose reducing techniques were utilized. Contrast: Visipaque 320 74 mL Findings: Bilateral lower lung pulmonary metastatic disease is again noted. The liver is grossly stable. Gallbladder is filled with stone debris and sludge. The spleen is unremarkable. The pancreas and adrenal glands are within normal limits. Left kidney is unremarkable. Large heterogeneous right renal mass is again noted with some local metastatic spread in the retroperitoneal fat with several tumor implants seen. Bladder is very distended with a Bruce catheter in place, question catheter function. Prostate is mildly enlarged. No free fluid. Sigmoid diverticulosis without evidence of acute diverticulitis. The appendix is normal. Scattered arterial plaque. Bone windows show no acute findings. Impression: 1. No clear etiology for the patient's GI bleeding. 2. Right renal cell carcinoma with extensive pulmonary metastatic disease. 3. Bladder distention, question Bruce catheter function. There is a preliminary report by [email or web address] .
[2016-09-09] MEDS ORDERED: LIDOCAINE 2% JELLY (Urojet) 20ml MM ONE (11:53)
[2016-09-09] MEDS: INSULIN ASPART 100unit/ml INJECTION SQ PRN ×2 (15:24→20:12)
--- NOTE | 2016-09-09 15:29 | Consult Note ---
Oncology HPI - Data of Consult Patient: known to practice within the last 3 years Consult date: 09/09/16 Requesting Physician: Janie Alford MD Primary Care Provider: Anshul Long MD Family Provider: Anshul Long MD - Consult Narrative History of present illness: History of Present Illness --06/2016: Increasing weakness with 3-4 episodes of falling. --Persistent pain in the middle back and shoulder since fall. --08/05/16: ER visit with CT scan showing widely metastatic malignancy, fracture of the medial clavicle, hypercalcemia. --08/06/16: Needle biopsy right kidney with the finding of clear cell carcinoma Caren grade 2-3. Risk factors include 1) performance status of 2, 2) Hypercalcemia, 3) Absence of nephrectomy. This includes three adverse risk factors and is associated with poor prognosis. --08/13/16: Institution of radiation therapy for brain metastasis. --09/03/16: Increasing back pain --09/06/16: MRI showing increasing fracture of L1. [facility] Patient Stated Medical History Hearing Loss Yes Hypertension Yes Myocardial Infarction Yes Diabetes Mellitus Type 2 Yes Other GI Yes: Weight Loss, Constipation Hx Incontinence Yes Medical History Updates: dyslipidemia, DM2, coronary artery disease Surgical History: CABG, T and a. Cardiac: cardiac bypass - Social History Smoking status: Never smoker Alcohol intake frequency: does not drink Social history: . Has supportive . Medications Home Medications Medication Instructions Recorded Confirmed Type Aspirin [Aspir-Low] 81 mg PO HS #0 08/05/16 09/08/16 History Atenolol 25 mg PO HS #0 08/05/16 09/08/16 History Atorvastatin Calcium 40 mg PO HS #0 08/05/16 09/08/16 History Folic Acid 0.4 mg PO DAILY #0 08/05/16 09/08/16 History Insulin Aspart [NovoLOG] 5 - 10 unit SQ TIDWM #0 08/05/16 09/08/16 History Insulin Glargine,Hum.rec.anlog 20 unit SQ HS #0 08/05/16 09/08/16 History [Lantus] Nitroglycerin [Nitrostat] 0.4 mg PO Q5MIN3 PRN #0 08/05/16 09/08/16 History Pyridoxine HCl (Vitamin B6) 50 mg PO DAILY #0 08/05/16 09/08/16 History [Pyridoxine HCl] Cyanocobalamin (B-12) [Vit B-12] 500 mcg PO DAILY 09/08/16 09/08/16 History Hydrocodone/APAP 5/325 [[place] 1 tab PO Q6H PRN 09/08/16 09/08/16 History 5/325] Lisinopril [Prinivil] 40 mg PO DAILY 09/08/16 09/08/16 History Multivit-Min/FA/Lycopen/Lutein 1 tab PO DAILY 09/08/16 09/08/16 History [Centrum Silver Men Tablet] Tamsulosin HCl [Flomax] 0.4 mg PO DAILY 09/08/16 09/08/16 History Allergies Allergy/AdvReac Type Severity Reaction Status Date / Time No Known Allergies Allergy Verified 09/08/16 19:39 Exam Vital signs: Temp Pulse Resp BP Pulse Ox 98.2 F 84 20 150/68 H 92 09/09/16 07:25 09/09/16 07:25 09/09/16 07:25 09/09/16 07:25 09/09/16 07:25 - Constitutional no acute distress, somnolent - Routine HEENT Exam Head: Present: normocephalic Eye: Present: EOMI, PERRL ENT: Present: mucous membranes dry - Routine Neck Exam Present: supple. Absent: lymphadenopathy - Routine Chest/Breast/Axilla Exam Axillae: Absent: lymphadenopathy - Routine Respiratory Exam Present: decreased breath sounds. Absent: accessory muscle use, rales - Routine Cardiovascular Exam Present: RRR, S1, S2 - Routine Abdominal Exam Present: soft, non tender. Absent: non distended, organomegaly - Routine Extremities Exam Absent: cyanosis, clubbing, edema - Routine Skin Exam Present: dry, warm - Routine Neurological Exam Present: CN II-XII intact, altered mental status Somnolent and decreased responsiveness - Routine Psychiatric Exam Present: unable to assess Oncology Results - Labs CBC & Chem 7: 09/09/16 16:01 09/09/16 04:44 Labs: Short CBC 09/08/16 09/09/16 Range/Units 23:29 04:44 WBC 12.3 H (4.5-11.0) T/MM3 Hgb 10.8 L 11.1 L (13.5-17.5) GM/DL Hct 34.5 L (41-53) % Plt Count 163 (130-400) T/MM3 [facility] 09/09/16 04:44 Sodium 136 Potassium 4.3 Chloride 99 Carbon Dioxide 23 BUN 51.0 H* Creatinine 1.5 Glucose 203 H Calcium 9.2 - Impressions MRI of lumbar spine Impression: 1. Subtle worsening in the L1 superior endplate fracture. 2. Enhancing mass involving the inferior aspect of T10 suspicious for metastasis. 3. Right renal mass. Assessment and Plan (1) Malignant neoplasm of right kidney, except renal pelvis Start date: 08/06/16 Problem details: Right renal mass with metastatic disease to the bone, right lung, left lung, brain. Diagnosed 08/06/16 with associated hypercalcemia. Current visit: Yes Status: Acute 1. 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 Metastatic disease to the bone, brain, left lung, right lung with associated hypercalcemia. Began radiation therapy to the brain on 08/13/16. Will plan on Sutent after completion of radiation therapy. 09/03/16: He is currently on radiation and will complete this very soon. He is currently on a dexamethasone taper and began 8 mg daily on 08/30/16 and will decrease to 4 mg daily on 09/06/16 with the plan of stopping this therapy on . Sutent and dexamethasone are not compatible therefore we will look at starting the Sutent on 09/17/16. His blood sugar today is 449 secondary to steroids. Discussed this with Dr. Long who will be seeing him later this afternoon. Calcium has normalized and is currently 9.7 with an albumin of 3.2. He is having increasing difficulty with pain in his lower back and I am concerned about possible compression fracture or worsening metastasis at this location. Will obtain MRI of the lumbar spine see patient back on to review results. UpToDate information about therapy is found on 08/13/16 note. 09/06/16: MRI shows L 1 compression fracture. Will get appointment with radiology for vertebraplasty. More difficulty with confusion and paranoia. Will try Seroquel. May need to consider hospice care. 09/09/16: Admitted with GI hemorrhage probably from dexamethasone. palliative care consultation was requested on Saturday. He has not started Sutent yet secondary to not being compatible with radiation therapy. He has approximately 3 more days of radiation to complete his radiation therapy to the brain. His hypercalcemia has improved with fluids, (2) Hypercalcemia Start date: 08/03/16 Current visit: Yes Status: Acute Calcium is 9.2 on 09/09/16 (3) Secondary malignant neoplasm of brain Current visit: Yes Status: Acute Currently on radiation therapy. Question if this could be affecting his somnolence. Would consider repeating CT scan. (4) Secondary malignant neoplasm of bone Current visit: Yes Status: Acute Bone metastasis with compression fracture of L1. He would benefit from vertebroplasty to decrease his pain. This is scheduled for tomorrow. We will attempt to continue this procedure. (5) Secondary malignant neoplasm of right lung Start date: 08/03/16 Current visit: Yes Status: Acute Noted on CT. Has not started systemic therapy. (6) Secondary malignant neoplasm of left lung Current visit: Yes Status: Acute Noted on CT. Has not started systemic therapy. (7) Normocytic anemia Current visit: Yes Status: Acute Patient admitted with black tarry stools. He is on dexamethasone is at risk of having peptic ulceration. Will manage supportively. Sepsis Assessment - Evaluation Sepsis screening result: No Definite Risk - Focused Exam Vital Signs Temp Pulse Resp BP Pulse Ox 09/09/16 07:25 98.2 F 84 20 150/68 H 92 Respiratory exam: Present: CTA bilaterally Cardiovascular exam: Present: RRR
[2016-09-09] MEDS: NS 1,000 ML IV SCH (16:26)
--- NOTE | 2016-09-09 17:51 | History & Physical Report ---
- History and Physical History and Physical: Dr. Dye's note reviewed. Mr. Benito interviewed and examined although vast majority of history provided by patient's . CC: Melanotic stool HPI: Mr. Benito is a 80 y/o male with a history of widely metastatic renal cell carcinoma who is undergoing both radiation therapy to his brain and chemotherapy. The patient has increased weakness and had a large incontinent black stool today. The patient was too weak to stand and had complained of stomach pain earlier in the day. He has no history of peptic ulcer disease or gastritis per his 's report. His blood pressure was reported to be low when EMS arrived at the patient's home. The patient was brought into the ED and had a CT of his abdomen which demonstrated the right renal cell carcinoma with extensive pulmonary metastatic disease and diverticulosis but no other processes. Hemoglobin was 10.2 and the patient was admitted due to concern of upper GI bleed. Following transfer to the medical unit the patient had 2 episodes of coffee-ground emesis. After arrival the patient's reported that they are considering palliative care and that the patient does not wish to undergo blood transfusions. He's had no further emesis or stools. He denies abdominal pain currently. His incidentally mentioned that urine output has been impaired over the past 24 hours and that the patient has had increasing confusion for several days. PH/SH/FH: agree with that recorded above with additions of metastatic renal cell carcinoma to bone, lung, and brain (radiation therapy nearly completed, chemotherapy being considered), hypercalcemia present when cancer diagnosed, and asymptomatic cholelithiasis. The patient has no history of tobacco/alcohol/illicit drug use. His -Paola Benito- is his [employer] and he has a DO NOT RESUSCITATE order. Dr. Anshul Long is his PCP and Dr. Gilliam his oncologist. Family history is positive for multiple malignancies with one sister dying of breast cancer, one sister and one brother dying of lung cancer. Father of coronary disease. ROS: 10 point review as previously noted with adding urine is typically bloody, Bruce hasn't been changed for about a month, 75 pound weight loss since cancer was diagnosed in July, recent fracture of the clavicle, and worsening confusion. EXAM: General-uncomfortable appearing male, trying to reposition himself continually HEENT-PERRL, EOMI, conjunctiva clear, sclera anicteric, conjugate gaze, facial structures symmetric, oropharynx clear, neck supple and without adenopathy Lungs-respirations nonlabored, anterior breath sounds clear Cardiac-regular rhythm, S1-S2 Abd-soft, mild-moderate tenderness on palpation in the lower abdomen bilaterally , bowel sounds diminished. No tenderness on palpation in the epigastrium or right upper quadrant Ext-without edema Skin-no generalized rash Neuro-moving upper extremities symmetrically, sensation intact, withdraws feet to tickle, facial structures symmetric and gaze conjugate Psych-confused, flat affect DATA: Hemoglobin 10.8 on admission, 11.1 this morning. Creatinine 1.4 with BUN 52, sodium 131-136, calcium 9.2, albumin 2.5 Urinalysis with no red cells on sample obtained in the emergency room but 3-5 WBCs, negative nitrite, +[address] abdomen/pelvis reviewed by myself demonstrating distended bladder with Bruce balloon obvious in the bladder, multiple metastases at the bases of the lungs. Chest x-ray also reviewed by myself with multiple metastatic lesions throughout the lung navarro bilaterally ECG reviewed-sinus bradycardia, first-degree AV block, no acute changes A/P: Upper GI bleed Blood loss anemia Widely metastatic renal cell carcinoma Urinary retention, secondary to occluded Bruce. Hematuria, chronic. History hypercalcemia Diabetes mellitus Coronary artery disease CKD, stage III Lengthy discussion with the patient's regarding patient's goals. Dr. Gilliam has been consulted. Continue home medications as tolerates. Bruce catheter replaced with immediate return of 1400 mL urine and improvement in patient comfort. Continue IV PPI. Monitor hemoglobin every 12 hours but given patient's/'s decision to forego transfusion do not believe more aggressive labs are needed. Ammonia to be screened with next labs given worsening confusion and GI blood loss. Case management consultation requested to assist family with palliative care options. Clear liquids initiated, monitor blood sugars, corrective scale insulin if needed.
[2016-09-10] MEDS: NS 1,000 ML IV SCH ×2 (02:28→13:59)
[2016-09-10] MEDS: CEFTRIAXONE 1 G in NS 100 ML IV SCH (03:20)
[2016-09-10] MEDS: INSULIN ASPART 100unit/ml INJECTION SQ PRN ×4 (07:30→20:33)
[2016-09-10] MEDS: PANTOPRAZOLE 40 MG INJECTION IVP SCH (08:06)
[2016-09-10] MEDS ORDERED: HALOPERIDOL 5 MG/ML INJECTION IVP ONE (10:37)
--- NOTE | 2016-09-10 11:29 | Progress Note ---
Oncology Subjective Discussed with , discussed with Dr. Saldana. Patients mental functioning is definitely decreased in as little comprehension of the present situation <Omer Gilliam - 09/10/16 16:54> Reclining in hospital bed with at bedside. Alert, oriented to person, place. Denies further dark stools today.States feeling improved. motions me to side; she is reluctant to talk in front of . States," I have to talk soft-he can't come home. He said to me at home I am going to shoot you, then shoot myself." steps outside to talk to the correctional case manager.I asked patient if he threatened he would shoot , then shoot himself." Replies, " I don't shoot." General: No fever, no night sweats Eyes: No redness, no pain, no diplopia ENT: No mouth sores, no trouble swallowing Cardiac: No chest pain no palpitations Pulmonary: No cough, no shortness of breath, no wheezing Abdomen: No pain, no nausea vomiting, no diarrhea or constipation : No urgency, frequency, dysuria, or hematuria Musculoskeletal: No arthritis, no myalgias Neurological: No headaches, no focal weakness Skin: No rash, no sores Psychiatric: Calm affect. Good eye contact <Farideh Lozoya - 09/10/16 12:53> Exam Vital signs: Temp Pulse Resp BP Pulse Ox 98 F 72 18 122/57 95 09/10/16 15:37 09/10/16 15:37 09/10/16 15:37 09/10/16 15:37 09/10/16 15:37 <Omer Gilliam - 09/10/16 16:54> Temp Pulse Resp BP Pulse Ox 97.6 F 69 18 129/60 94 09/10/16 07:37 09/10/16 08:00 09/10/16 07:37 09/10/16 07:37 09/10/16 07:37 <Farideh Lozoya - 09/10/16 11:29> - Constitutional no acute distress, cooperative <Farideh Lozoya 09/10/16 12:53> - Routine HEENT Exam Head: Present: normocephalic <Farideh Lozoya 09/10/16 12:53> Eye: Present: EOMI <Farideh Lozoya - 09/10/16 12:53> ENT: Present: mucous membranes dry <Farideh Lozoya - 09/10/16 12:53> - Routine Neck Exam Present: supple. Absent: tenderness <Farideh Lozoya - 09/10/16 12:53> - Routine Respiratory Exam Present: decreased breath sounds. Absent: wheezes <Farideh Lozoya - 09/10/16 12:53> - Routine Cardiovascular Exam Present: RRR. Absent: tachycardia <Farideh Lozoya - 09/10/16 12:53> - Routine Abdominal Exam Present: soft. Absent: tenderness, organomegaly <Farideh Lozoya - 09/10/16 12 :53> - Routine Extremities Exam Absent: edema, tenderness <Farideh Lozoya 09/10/16 12:53> - Routine Skin Exam Present: pallor. Absent: rash <Farideh Lozoya - 09/10/16 12:53> - Routine Neurological Exam Present: alert <Farideh Lozoya 09/10/16 12:53> He is unable to state the year. States 1915. Reflexes are 1+ to 2+ in both lower extremities. No clonus. Weaker and right legs and left. More compatible with pain rather than neurologic cord compression. <Omer Gilliam - 09/10/16 16:54> Gait not observed. Oriented to person, place <Farideh Lozoya - 09/10/16 12:53> - Routine Psychiatric Exam Present: normal affect, suicidal ideation (patient denies. See comment per in subjective) <Farideh Lozoya - 09/10/16 12:53> Oncology Results - Labs CBC & Chem 7: 09/10/16 04:56 09/10/16 04:56 <Omer Gilliam - 09/10/16 16:54> Labs: Short CBC 09/10/16 Range/Units 04:56 WBC 12.9 H (4.5-11.0) T/MM3 Hgb 8.7 L D (13.5-17.5) GM/DL Hct 27.1 L D (41-53) % Plt Count 134 (130-400) T/MM3 BMP 09/10/16 04:56 Sodium 137 Potassium 4.3 Chloride 107 D Carbon Dioxide 24 BUN 57.0 H* Creatinine 1.6 H D Glucose 187 H Calcium 9.1 Liver Function 09/10/16 Range/Units 04:56 Albumin 2.3 L (3.5-5.0) G/DL <Omer Gilliam D - 09/10/16 16:54> Short CBC 09/09/16 09/10/16 Range/Units 16:01 04:56 WBC 12.9 H (4.5-11.0) T/MM3 Hgb 8.7 L D (13.5-17.5) GM/DL Hct 32.0 L 27.1 L D (41-53) % Plt Count 134 (130-400) T/MM3 BMP 09/10/16 04:56 Sodium 137 Potassium 4.3 Chloride 107 D Carbon Dioxide 24 BUN 57.0 H* Creatinine 1.6 H D Glucose 187 H Calcium 9.1 Liver Function 09/10/16 Range/Units 04:56 Albumin 2.3 L (3.5-5.0) G/DL <Farideh Lozoya L - 09/10/16 11:29> Progress Note-A&P (1) Normocytic anemia Status: Acute Current Visit: Yes (2) Malignant neoplasm of right kidney, except renal pelvis Problem details: Right renal mass with metastatic disease to the bone, right lung, left lung, brain. Diagnosed 08/06/16 with associated hypercalcemia. Status: Acute Current Visit: Yes (3) Hypercalcemia Status: Acute Current Visit: Yes (4) Secondary malignant neoplasm of brain Status: Acute Current Visit: Yes (5) Secondary malignant neoplasm of bone Status: Acute Current Visit: Yes (6) Secondary malignant neoplasm of right lung Status: Acute Current Visit: Yes (7) Secondary malignant neoplasm of left lung Status: Acute Current Visit: Yes (8) Anxiety and depression Status: Acute Assessment and plan: Patient specifically denies depression or anxiety when asked. His only complaint is "my back hurts when I'm trying to get up." Current Visit: Yes <Farideh Lozoya L - 09/10/16 13:00> (1) Normocytic anemia Status: Acute Assessment and plan: Hemoglobin has decreased 8.7. This is compatible with acute GI blood loss. Will follow hemoglobin and support with transfusions as needed. Current Visit: Yes (2) Malignant neoplasm of right kidney, except renal pelvis Problem details: Right renal mass with metastatic disease to the bone, right lung, left lung, brain. Diagnosed 08/06/16 with associated hypercalcemia. Status: Chronic Assessment and plan: Cancer of the kidney metastatic to the brain, bone, lung. He has been on radiation therapy for the brain. Currently with GI bleed and progressive decline in functioning. is unable to care for him at home. Would consider hospice care. Currently eligible for veterans benefits and would look at trying to make arrangements to transfer to the [facility] or [place] hospice. Current Visit: Yes (3) Hypercalcemia Status: Acute Assessment and plan: Calcium today is 9.1. This is corrected since his hospitalization. Will continue to follow. Current Visit: Yes (4) Secondary malignant neoplasm of brain Status: Chronic Assessment and plan: Currently on radiation therapy to the brain. He would completed later this week. It is on hold for present acute GI bleed Current Visit: Yes (5) Secondary malignant neoplasm of bone Status: Chronic Assessment and plan: Bone metastasis is present. He has compression fracture of L1 that might benefit from vertebroplasty. Current Visit: Yes (6) Secondary malignant neoplasm of right lung Status: Chronic Current Visit: Yes (7) Secondary malignant neoplasm of left lung Status: Chronic Current Visit: Yes (8) Anxiety and depression Status: Acute Assessment and plan: Episode of threatening bodily harm with firearm. Confused. Unable to answer questions effectively and manage his care. This could be related to steroids, brain metastasis, or metabolic syndrome. Will support and follow Current Visit: Yes <Omer Gilliam - 09/10/16 16:54> - Time Spent With Patient Total time spent is greater than 50% in coordination of care (as documented) at patient's floor/unit and/or counseling patient: <Omer Gilliam - 09/10/16 16:54> Total time spent is greater than 50% in coordination of care (as documented) at patient's floor/unit and/or counseling patient: <Farideh Lozoya - 09/10/16 11:29> 25 - 35 minutes <Farideh Lozoya - 09/10/16 12:53> Sepsis Assessment - Evaluation Sepsis screening result: No Definite Risk <Farideh Lozoya - 09/10/16 11:29> - Focused Exam Vital Signs Temp Pulse Resp BP Pulse Ox 09/10/16 15:37 98 F 72 18 122/57 95 09/10/16 08:00 69 09/10/16 07:37 97.6 F 73 18 129/60 94 <Omer Gilliam - 09/10/16 16:54> Vital Signs Temp Pulse Resp BP Pulse Ox 09/10/16 08:00 69 09/10/16 07:37 97.6 F 73 18 129/60 94 09/10/16 00:25 99.6 F 74 18 101/50 91 09/10/16 00:00 75 <Farideh Lozoya L - 09/10/16 11:29> Respiratory exam: Present: CTA bilaterally <Farideh Lozoya - 09/10/16 11:29> Cardiovascular exam: Present: RRR <Farideh Lozoya - 09/10/16 11:29>
--- NOTE | 2016-09-10 15:27 | Progress Note ---
Subjective: Mr. Benito was seen with his at the bedside. He was moderately confused and perseverated on issues. He complained of back pain and insisted that he could walk with crutches or with a cane. He has been suspicious throughout the day and threatened to shoot his earlier on at least 2 occasions once in presence of case management. Currently he denies dyspnea, nausea, abdominal pain. He does not recall diarrhea prior to admission or vomiting on arrival. He doesn't understand where he was losing blood nor does he follow the conversation when I attempt to explain GI blood loss to him. reports patient's been drinking fluids well today. Objective Vital signs: Temp Pulse Resp BP Pulse Ox 97.6 F 69 18 129/60 94 09/10/16 07:37 09/10/16 08:00 09/10/16 07:37 09/10/16 07:37 09/10/16 07:37 EXAM General-NAD, confused HEENT-conjunctiva clear, tongue without thrush, neck without adenopathy Lungs-respirations nonlabored, decreased airflow, anterior breath sounds clear Cardiac-regular rhythm, S1-S2 Abd-soft, mild tenderness on palpation lateral right upper quadrant, mild tenderness on palpation suprapubically; no guarding, diminished bowel sounds Ext-without edema Neuro-sensation intact upper/lower extremities Psych-confused, suspicious - Weight: 37.79 kg Results - Labs CBC & Chem 7: 09/10/16 04:56 09/10/16 04:56 Labs: Segs 74, bands 14, lymphocytes 12 Phosphorus 3.4, magnesium 2.1 Urine culture > 100,000 colonies mixed bacterial luzmaria Assessment and Plan (1) Upper GI bleed Current visit: Yes Status: Acute (2) Delirium due to another medical condition Current visit: Yes Status: Acute (3) Acute blood loss anemia Current visit: Yes Status: Acute (4) Malignant neoplasm of right kidney, except renal pelvis Problem details: Right renal mass with metastatic disease to the bone, right lung, left lung, brain. Diagnosed 08/06/16 with associated hypercalcemia. Current visit: Yes Status: Chronic (5) DM type 2 (diabetes mellitus, type 2) Current visit: Yes Status: Chronic (6) Secondary malignant neoplasm of brain Current visit: Yes Status: Chronic (7) Secondary malignant neoplasm of bone Current visit: Yes Status: Chronic (8) Secondary malignant neoplasm of left lung Current visit: Yes Status: Chronic (9) Secondary malignant neoplasm of right lung Current visit: Yes Status: Chronic (10) Malnutrition of moderate degree Current visit: Yes Status: Chronic 75 pound weight loss in the past month, depressed albumin. 09/10/16 15:44 (11) CKD (chronic kidney disease) stage 3, GFR 30-59 ml/min Current visit: Yes Status: Chronic (12) Hematuria Current visit: Yes Status: Resolved Assessment and Plan: No further recognized blood loss however hemoglobin has dropped from 12.1-12 days ago and 10.2 on admission to current value of 8.7 after hydration. does not plan transfusion at present. Monitor intermittently. Convert from IV to oral PPI. Hematuria clearing after Bruce change and relief of urinary obstruction/ occluded Bruce. Home dose Man[place] resumed for pain control-currently complains of back pain, known lumbar met. Increased confusion with delirium; threatening statements made to earlier today. Haldol given 1, psychiatry consulted. Decadron restarted per prior dose. Continue corrective dose insulin; with resumption of Decadron will resume Lantus at 10 units at bedtime. Advanced from clear liquids to soft diet. Case management working on hospice options. Discussed with oncology, discussed with case management, discussed with psychiatry, telemetry strips reviewed by myself-sinus, laboratory data reviewed. Sepsis Assessment - Evaluation Sepsis screening result: No Definite Risk - Focused Exam Vital Signs Temp Pulse Resp BP Pulse Ox 09/10/16 08:00 69 09/10/16 07:37 97.6 F 73 18 129/60 94 Respiratory exam: Present: CTA bilaterally Cardiovascular exam: Present: RRR Hospital Course Summary Disclaimer: The visit summary below is not to be considered part of the above Progress Note. Hospital Course: 09/09/16 Patient admitted after episode of melanotic stool followed by 2 episodes of coffee-ground emesis. 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 Probable upper GI bleed. IV PPI initiated. plans hospice/palliative care. No transfusions planned per DPOA request. Bruce catheter placed 1 month ago for urinary retention, occluded on admission. Bruce replaced with return of bloody urine. Monitor. Case management consulted for assistance with hospice placement. Dr. Gilliam consulted. 09/10/16 15:52 No further recognized blood loss however hemoglobin has dropped from 12.1-12 days ago and 10.2 on admission to current value of 8.7 after hydration. does not plan transfusion at present. Monitor intermittently. Convert from IV to oral PPI. Hematuria clearing after Bruce change and relief of urinary obstruction/ occluded Bruce. Home dose [place] resumed for pain control-currently complains of back pain, known lumbar met. Increased confusion with delirium; threatening statements made to earlier today. Haldol given 1, psychiatry consulted. Decadron restarted per prior dose. Continue corrective dose insulin; with resumption of Decadron will resume Lantus at 10 units at bedtime. Advanced from clear liquids to soft diet. Case management working on hospice options.
[2016-09-10] MEDS ORDERED: HYDROCODONE/APAP 5mg/325mg TABLET PO PRN (15:28)
[2016-09-10] MEDS ORDERED: HALOPERIDOL 5 MG/ML INJECTION IVP PRN (15:45)
[2016-09-10] MEDS: OMEPRAZOLE 20 MG CAPSULE PO SCH (18:14)
[2016-09-10] MEDS: DEXAMETHASONE 4 MG TABLET PO SCH (21:56)
[2016-09-10] MEDS ORDERED: TAMSULOSIN 0.4 MG CAPSULE PO SCH (22:00)
[2016-09-10] MEDS ORDERED: INSULIN GLARGINE 100unit/ml INJECTION SQ SCH (22:00)
[2016-09-11] MEDS: NS 1,000 ML IV SCH ×3 (00:09→11:42)
[2016-09-11] MEDS: NS 500 ML IV SCH ×3 (01:21→01:23)
[2016-09-11] MEDS: CEFTRIAXONE 1 G in NS 100 ML IV SCH (02:18)
[2016-09-11] MEDS: OMEPRAZOLE 20 MG CAPSULE PO SCH (06:06)
[2016-09-11] MEDS: INSULIN ASPART 100unit/ml INJECTION SQ PRN ×2 (06:10→13:42)
[2016-09-11] MEDS: HYDROMORPHONE 2 MG/ML INJECTION IVP PRN (08:18)
[2016-09-11] MEDS ORDERED: HALOPERIDOL 0.5 MG TABLET PO SCH (09:00)
[2016-09-11] MEDS: DEXAMETHASONE 4 MG TABLET PO SCH (10:04)
--- NOTE | 2016-09-11 10:24 | Neuropsychiatric Consult ---
[facility] Date: 09/11/16 Requesting Physician: Janie Alford Reason for Consultation: homicidal/suicidal threats Start Time: 08:00 Stop Time: 08:40 History of Present Illness: MR peterson is a 80 year old , retired, , who is here on the medical unit at [facility], day 3. he was admitted due to gi bleed and he has metastatic clear cell renal carcinoma which has reportedly metastasized to his lungs, bones, brain. psych was consulted due to the pt making homicidal and suicidal threats towards his and himself. he reportedly has said on more than one occaision, "i'm going to shoot you, and then myself." when i ask him about these statements this morning, he denies this, and seems to not have recollection of it. he is confused at times, fluctuating in his sensorium and thought processes, and disoriented. he does endorse some depressive symptoms, including ongoing low mood, feeling hopeless, helpless, low interest, lack of spirit/drive, poor sleep, low appetite, weight loss, and morbid thoughts. this is all in context of having cancer as well which certainly confound many of these symptoms. he denies any auditory or visual hallucations but i wouldn'd doubt if he's having some perceptual disturbances at times. denies si or hi to me at this time, but again, doesn't remember making the comments in the first place and they're documented by others. in speaking with one of the nurses who has previously taken care of him. he reports that he"s witnessed mr. peterson act quite rude and paranoid towards his , saying, "where have you been, where is he, the dashawn you were with?" Depression: Increased Anxiety, Increased Irritability, Crying Spells, Loss of Interest in Activities, Isolating Oneself From Friends and Family, Increased Fatigue, Loss of Energy, Insomnia, Difficulty Sleeping, Feelings of Worthlessness, Recurrent Thoughts of or Suicide, Difficulty Concentrating , Difficulty Making Decisions, Changes in Appetite, Significant Weight Loss, Back Pain, Hopelessness, Unhappiness, Low Self Esteem Harini: Irritability Psychosis: Delusions, Disorganized behavior PFS Patient Stated Medical History Hearing Loss Yes Hypertension Yes Myocardial Infarction Yes Diabetes Mellitus Type 2 Yes Other GI Yes: Weight Loss, Constipation Hx Incontinence Yes Medical History Updates: dyslipidemia, DM2, coronary artery disease Surgical History: CABG, T and a. Cardiac: cardiac bypass Family History: unknown - Social History Smoking status: Never smoker Substance use type: does not use Review of Systems - Constitutional Constitutional: Present: as per HPI - Psychiatric Psychiatric: Present: as per HPI, abnormal sleep pattern, anhedonia, anxiety, behavioral changes, depression, difficulty concentrating, homicidal ideation, hopelessness, mood swings, paranoia, suicidal ideation Mental Status Exam Vitals: Last Vital Signs Temp 96.6 F L 09/11/16 07:00 Pulse 76 09/11/16 07:00 Resp 16 09/11/16 07:00 BP 130/67 09/11/16 07:00 Pulse Ox 92 09/11/16 07:00 Height: 5 ft 9.5 in Weight: 85.5 kg - Mental Status Exam Muscle Strength/Tone: Weak Dressing: Casual Grooming: Fair Attitude: Cooperative (was cooperative with me but this has reportedly fluctuated) Motor Activity: Retardation Eye Contact: Good Speech: Slowed Volume: Normal Rhythm: Appropriate Rhythm Orientation: Disoriented to time, Disoriented to place, Disoriented to situation , Oriented to person Mood: Depressed Rate of Thoughts: Delayed Thought Organization: Confused Thought Content: Ruminations, Hopelessness, Helplessness, Worthlessness, Paranoia Perception/Psychotic: Other (he denies but i suspect he may be having some perceptual disturbances at times) Memory: Poor-recent Suicidal Ideation: Denies (denies but he has made threats) Homicidal Ideation: Denies (but has made threats) Insight: Impaired Judgement: Impaired Impulse Control: Poor - Laboratory Result Diagrams: 09/11/16 05:07 09/11/16 05:07 Laboratory Results - last 24 hr 09/10/16 09/10/16 09/10/16 10:26 14:25 20:05 WBC RBC Hgb Hct MCV MCH MCHC RDW Std Deviation Plt Count MPV Immature Gran % (Auto) Neut % (Auto) Lymph % (Auto) Baxter % (Auto) Eos % (Auto) Baso % (Auto) Neut # Lymph # Baxter # Eos # Baso # Abs Immat Gran (auto) Neutrophils % (Manual) Band Neutrophils % Lymphocytes % (Manual) Monocytes % (Manual) Eosinophils % (Manual) Neutrophils # (Manual) Band Neutrophils # Lymphocytes # (Manual) Monocytes # (Manual) Eosinophils # (Manual) RBC Morph Comment Turbidity Sodium Potassium Chloride Carbon Dioxide Anion Gap BUN Creatinine GFR Calculation BUN/Creatinine Ratio Glucose Glucometer 211 241 267 Calculated Osmolality Calcium Icterus Index Specimen Hemolysis 09/11/16 09/11/16 09/11/16 05:07 05:07 06:08 WBC 10.6 RBC 2.73 L Hgb 7.8 L Hct 24.5 L MCV 89.7 MCH 28.6 MCHC 31.8 RDW Std Deviation 45.0 Plt Count 123 L MPV 10.3 Immature Gran % (Auto) Wire Steward Neut % (Auto) Wire Steward Lymph % (Auto) Wire Steward Baxter % (Auto) Wire Steward Eos % (Auto) Wire Steward Baso % (Auto) Wire Steward Neut # Wire Steward Lymph # Wire Steward Baxter # Wire Steward Eos # Wire Steward Baso # Wire Steward Abs Immat Gran (auto) Wire Steward Neutrophils % (Manual) 88.0 H Band Neutrophils % 4.0 D Lymphocytes % (Manual) 6.0 L Monocytes % (Manual) 1.0 Eosinophils % (Manual) 1.0 Neutrophils # (Manual) 9.3 H Band Neutrophils # 0.4 Lymphocytes # (Manual) 0.6 L Monocytes # (Manual) 0.1 Eosinophils # (Manual) 0.1 RBC Morph Comment 1+ anisocytosis Turbidity < 20 Sodium 139 Potassium 4.1 Chloride 109 H Carbon Dioxide 23 Anion Gap 7 BUN 39.0 H Creatinine 1.1 D GFR Calculation 65 BUN/Creatinine Ratio 36 H Glucose 207 H Glucometer 260 Calculated Osmolality 283 H Calcium 9.1 Icterus Index < 2 Specimen Hemolysis < 15 Assessment and Plan (1) Delirium due to another medical condition Current visit: Yes Status: Acute (2) Anxiety and depression Current visit: Yes Status: Acute pt discussed mickey holt who will work to assist primary team from psych standpoint as well. start haldol 0.5mg po bid to target psychosis, agitation. start mirtazapine 7.5mg po q hs to target mood, sleep, appetite. has lorazepam available prn as well if needed. dr. ballard will be covering beginning tomorrow and i'll ask her to follow up on this as well.
[2016-09-11] MEDS ORDERED: LORazepam 0.5 MG TABLET PO PRN (10:40)
--- NOTE | 2016-09-11 12:17 | Discharge Summary ---
Discharge Plan - Med Rec/Dispo Anika Instructions: Gastrointestinal Bleeding (GEN) Prescriptions: New Haloperidol [Haldol] 0.5 mg PO BID #20 Mirtazapine [Remeron] 7.5 mg PO HS #15 LORazepam [Ativan] 0.5 mg PO HS PRN #10 PRN Reason: Anxiety Omeprazole [Prilosec] 20 mg PO ACBID cap Continue Nitroglycerin [Nitrostat] 0.4 mg PO Q5MIN3 PRN #0 PRN Reason: CHEST PAIN Atenolol 25 mg PO HS #0 Dexamethasone 1 tab PO TID 14 Days Tamsulosin HCl [Flomax] 0.4 mg PO DAILY Hydrocodone/APAP 5/325 [[place] 5/325] 1 tab PO Q6H PRN PRN Reason: Pain Multivit-Min/FA/Lycopen/Lutein [Centrum Silver Men Tablet] 1 tab PO DAILY Cyanocobalamin (B-12) [Vit B-12] 500 mcg PO DAILY Changed Insulin Glargine,Hum.rec.anlog [Lantus] 15 unit SQ HS #0 Discontinued Aspirin [Aspir-Low] 81 mg PO HS #0 Atorvastatin Calcium 40 mg PO HS #0 Insulin Aspart [NovoLOG] 5 - 10 unit SQ TIDWM #0 Pyridoxine HCl (Vitamin B6) [Pyridoxine HCl] 50 mg PO DAILY #0 Folic Acid 0.4 mg PO DAILY #0 Lisinopril [Prinivil] 40 mg PO DAILY - Disposition 43 To [facility]
--- NOTE | 2016-09-11 21:09 | Discharge Summary ---
Discharge Information Date of admission: 09/08/16 22:53 Anticipated date of discharge: 09/11/16 Attending Physician: Janie Alford MD Primary care physician: Anshul Long MD Consults: Consulting Provider: Omer Gilliam Consulting Provider: Bernard Mansfield A - Discharge Diagnosis (1) Upper GI bleed Status: Acute (2) Acute blood loss anemia Status: Acute (3) Malignant neoplasm of right kidney, except renal pelvis Problem Details: Right renal mass with metastatic disease to the bone, right lung, left lung, brain. Diagnosed 08/06/16 with associated hypercalcemia. 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 Admission liver enzymes were unremarkable other than albumin 2.5 09/11/16 05:07 09/11/16 05:07 - Microbiology Urine culture with mixed bacterial luzmaria - Radiology Radiology: CT abdomen/pelvis with contrast on 09/08: Bilateral lower lung pulmonary metastatic disease is again noted. The liver is grossly stable. Gallbladder is filled with stone debris and sludge. The spleen is unremarkable. The pancreas and adrenal glands are within normal limits. Left kidney is unremarkable. Large heterogeneous right renal mass is again noted with some local metastatic spread in the retroperitoneal fat with several tumor implants seen. Bladder is very distended with a Bruce catheter in place, question catheter function. Prostate is mildly enlarged. No free fluid. Sigmoid diverticulosis without evidence of acute diverticulitis. The appendix is normal. Scattered arterial plaque. Bone windows show no acute findings. Impression: 1. No clear etiology for the patient's GI bleeding. 2. Right renal cell carcinoma with extensive pulmonary metastatic disease. 3. Bladder distention, question Bruce catheter function. Chest x-ray on admission: Diffuse pulmonary metastatic disease without obvious focal consolidative pneumonia. No pleural effusion or pneumothorax. Heart size and mediastinal contours are stable. Prior CABG. Impression: No focal pneumonia is seen. History of Present Illness HPI: Mr. Benito is a 80 y/o male with a history of widely metastatic renal cell carcinoma who is undergoing both radiation therapy to his brain and chemotherapy. The patient has increased weakness and had a large incontinent black stool today. The patient was too weak to stand and had complained of stomach pain earlier in the day. He has no history of peptic ulcer disease or gastritis per his 's report. His blood pressure was reported to be low when EMS arrived at the patient's home. The patient was brought into the ED and had a CT of his abdomen which demonstrated the right renal cell carcinoma with extensive pulmonary metastatic disease and diverticulosis but no other processes. Hemoglobin was 10.2 and the patient was admitted due to concern of upper GI bleed. Following transfer to the medical unit the patient had 2 episodes of coffee-ground emesis. After arrival the patient's reported that they are considering palliative care and that the patient does not wish to undergo blood transfusions. He's had no further emesis or stools. He denies abdominal pain currently. His incidentally mentioned that urine output has been impaired over the past 24 hours and that the patient has had increasing confusion for several days. Hospital Course Hospital course: 09/09/16 Patient admitted after episode of melanotic stool followed by 2 episodes of coffee-ground emesis. 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 Probable upper GI bleed. IV PPI initiated. plans hospice/palliative care. No transfusions planned per DPOA request. Bruce catheter placed 1 month ago for urinary retention, occluded on admission. Bruce replaced with return of bloody urine. Monitor. Case management consulted for assistance with hospice placement. Dr. Gilliam consulted. 09/10/16 15:52 No further recognized blood loss however hemoglobin has dropped from 12.1-12 days ago and 10.2 on admission to current value of 8.7 after hydration. does not plan transfusion at present. Convert from IV to oral PPI. Hematuria clearing after Bruce change and relief of urinary obstruction/ occluded Bruce. Home dose Ona resumed for pain control-currently complains of back pain, known lumbar met. Increased confusion with delirium; threatening statements made to earlier today. Haldol given 1, psychiatry consulted-Dr. Mansfield. Decadron restarted per prior dose. Continue corrective dose insulin; with resumption of Decadron will resume Lantus at 10 units at bedtime. Advanced from clear liquids to soft diet. Case management working on hospice options. 09/11/16 Case management is coordinated discharge to inpatient hospice at the [place]. Patient opened to transfer to hospice today. Patient is much calmer today and denied homicidal/suicidal intent when he spoke with psychiatry earlier. Complains of mild back discomfort but no nausea or dyspnea. Patient was mildly confused when seen and had slow deliberate speech. Respirations were nonlabored and breath sounds clear. Stable for transfer to inpatient hospice. Discharge medications and instructions completed. Patient's managing physician at the [facility] as Dr. Forrester on team 6 per report of his . >30 minutes spent on patient care and discharge care coordination today on the date of discharge. -- Discharge Plan - Med Rec/Dispo Anika Instructions: Gastrointestinal Bleeding (GEN) Prescriptions: New Haloperidol [Haldol] 0.5 mg PO BID #20 Mirtazapine [Remeron] 7.5 mg PO HS #15 LORazepam [Ativan] 0.5 mg PO HS PRN #10 PRN Reason: Anxiety Omeprazole [Prilosec] 20 mg PO ACBID cap Continue Nitroglycerin [Nitrostat] 0.4 mg PO Q5MIN3 PRN #0 PRN Reason: CHEST PAIN Atenolol 25 mg PO HS #0 Dexamethasone 1 tab PO TID 14 Days Tamsulosin HCl [Flomax] 0.4 mg PO DAILY Hydrocodone/APAP 5/325 [Ona 5/325] 1 tab PO Q6H PRN PRN Reason: Pain Multivit-Min/FA/Lycopen/Lutein [Centrum Silver Men Tablet] 1 tab PO DAILY Cyanocobalamin (B-12) [Vit B-12] 500 mcg PO DAILY Changed Insulin Glargine,Hum.rec.anlog [Lantus] 15 unit SQ HS #0 Discontinued Aspirin [Aspir-Low] 81 mg PO HS #0 Atorvastatin Calcium 40 mg PO HS #0 Insulin Aspart [NovoLOG] 5 - 10 unit SQ TIDWM #0 Pyridoxine HCl (Vitamin B6) [Pyridoxine HCl] 50 mg PO DAILY #0 Folic Acid 0.4 mg PO DAILY #0 Lisinopril [Prinivil] 40 mg PO DAILY - Disposition 43 To [facility]
[2016-09-11] MEDS ORDERED: MIRTAZAPINE 15 MG TABLET PO SCH (22:00)
== END 2016-09-11 13:39 | DRG 378 ==
LOC: ED 19:03 → MED 22:53
PROVIDERS: ADMIT Emergency Medicine; ATTEND Internal Medicine